=== PATIENT | female | born 1975 | race Caucasian/White ===

== ENCOUNTER → 2016-12-07 | Outpatient (CLI) | payer BC ==
[~2016-12-07] MED LIST: ALBU17IN INH; DULE100A IN; FERR325T3 PO; FIBE1CHW2 PO; GLYB1TAB65 PO; IBUP80TA PO; PRENTAB31 PO; PROT20TA11 PO; SING10TA32 PO; TUMS500C PO; VITA100067 PO
--- NOTE | 2016-12-07 17:26 | REP ---
HISTORY: Pain. COMPARISON: 07/10/2013 FINDINGS: No acute fracture or destructive osseous lesion. No significant change from the prior exam. Signed by Linus Moscoso DO 12/07/2016 05:46 P
== END ==
LOC: M WUC 13:38
PROVIDERS: ATTEND Physician Assistant
DX: M25.532 Pain in left wrist (principal)

== ENCOUNTER → 2017-01-16 | Outpatient (CLI) | payer BC ==
[2017-01-16 13:29] LABS: FREE T4 0.93 NG/DL (0.76-1.46)
== END ==
LOC: M SMT 10:30
PROVIDERS: ATTEND Advanced Practice Midwife
DX: Z13.29 Encounter for screening for other suspected endocrine disorder (principal)

== ENCOUNTER 2017-03-25 10:42 | Emergency (ER) | payer BC ==
[~2017-03-25] VITALS: Ht 172.7 cm; Wt 100.0 kg
[~2017-03-25 10:42] MED LIST changes: +[UNRECOGNIZED DRUG - CODE] PO
[2017-03-25 11:36] LABS: BASO # 0.1 10^3/uL (0.0-0.2); BASO % 0.7 % (0.0-1.0); EOS # 0.2 10^3/uL (0.0-0.50); EOS % 2.6 % (0.0-3.0); IMMATURE GRANULOCYTE % 0.4 % (0-0); LYMPH % 21.3 % (24.0-44.0); MEAN CORPUSCULAR HEMOGLOBIN 31.2 pg (27.0-33.0); MEAN CORPUSCULAR HGB CONC 34.5 g/dl (32.0-36.5); MEAN CORPUSCULAR VOLUME 90.4 fl (80.0-96.0); MONO # 0.6 10^3/uL (0.0-0.8); MONO % 6.7 % (0.0-5.0); NEUTROPHILS # 6.3 10^3/uL (1.8-7.7); NEUTROPHILS % 68.3 % (36.0-66.0); PLATELET COUNT, AUTOMATED 244 10^3/uL (150-450); RED CELL DISTRIBUTION WIDTH 12.4 % (11.5-14.5); WHITE BLOOD COUNT 9.2 10^3/uL (4.0-10.0)
--- NOTE | 2017-03-25 11:38 | REP ---
Clinical: Chest pain . Comparison: None . Findings: The mediastinum and cardiac silhouette are stable and within normal limits for portable technique. The lung samson are clear without acute consolidation, effusion, or pneumothorax. Skeletal structures are intact. Impression: No acute cardiopulmonary process appreciated. Signed by Boy Avalos MD 03/25/2017 11:28 A
[2017-03-25] MEDS ORDERED: GI COCKTAIL 50ML BTL(HYOSCYAMINE/MAALOX/LIDOCAINE VISCOUS)(1:3:1) PO ONE (12:00)
[2017-03-25 12:11] LABS: ALBUMIN 3.8 GM/DL (3.2-5.2); ALBUMIN/GLOBULIN RATIO 1.06 (1.00-1.93); ALKALINE PHOSPHATASE 54 U/L (45-117); ALT/SGPT 32 U/L (12-78); ANION GAP 7 MEQ/L (8-16); AST/SGOT 21 U/L (7-37); BILIRUBIN,DIRECT < 0.1 MG/DL (0.0-0.2); BILIRUBIN,TOTAL 0.5 MG/DL (0.2-1.0); BLOOD UREA NITROGEN 7 MG/DL (7-18); CALCIUM LEVEL 9.3 MG/DL (8.5-10.1); CARBON DIOXIDE LEVEL 27 MEQ/L (21-32); CHLORIDE LEVEL 104 MEQ/L (98-107); GLOMERULAR FILTRATION RATE > 60.0 (>58); GLUCOSE, FASTING 96 MG/DL (70-105); SODIUM LEVEL 138 MEQ/L (136-145); TOTAL PROTEIN 7.4 GM/DL (6.4-8.2)
[2017-03-25] MEDS ORDERED: SUCRALFATE SUSP 1GM/10ML UD PO ONE (12:30)
[2017-03-25] MEDS ORDERED: KETOROLAC 30 MG/ML VIAL (J1885) IV ONE (13:15)
[2017-03-25] MEDS ORDERED: ISOVUE-370 76% 100ML VIAL (Q9967) As Ordered ONE (13:23)
--- NOTE | 2017-03-25 14:28 | REP ---
Clinical: Chest pain and shortness of breath. Technique: Axial contrast enhanced images from the thoracic inlet to the upper abdomen using 100 ml Isovue 370 intravenous contrast material with coronal and sagittal MIP re-formations. Findings: Satisfactory enhancement of the pulmonary vasculature is achieved and no filling defects are identified to suggest pulmonary embolus. Thoracic aorta is normal caliber without aneurysm or dissection. Heart and pericardium are normal. Bilateral lung samson are well aerated and clear without acute pulmonary parenchymal consolidation or atelectasis. No nodule or mass lesion. No pleural effusion/reaction. No pneumothorax. No adenopathy. Impression: No evidence for pulmonary embolus. No acute pleuroparenchymal or mediastinal process. Signed by Boy Avalos MD 03/25/2017 02:20 P
[2017-03-25] MEDS ORDERED: SUCR1SS PO (14:35)
[2017-03-25 14:49] VITALS: BP 115/79
--- NOTE | 2017-03-27 08:27 | ECGEPIP ---
Stationary ECG Study [facility] - ED Test Date: 2017-03-25 Pat Name: JESSICA GOINS Department: Room: - Gender: F Cooperative Education Coordinator: luis enrique : 1975 Requested By: Magnolia Bingham Order Number: [id number] Reading MD: Oli Bustamante Measurements Intervals [place] Rate: 69 P: 46 MS: 141 QRS: -5 QRSD: 90 T: 15 QT: 389 QTc: 419 Interpretive Statements SINUS RHYTHM INCOMPLETE RIGHT BUNDLE BRANCH BLOCK NSTTW ABNORMALITIES NO PRIORS FOR COMPARISON Electronically Signed On 03-27-2017 8:27:40 EST by Oli Bustamante
== END 2017-03-25 14:58 | disposition home or self-care (01) ==
LOC: M ED 10:42
DX: R07.89 Other chest pain (principal); I45.2 Bifascicular block; R94.31 Abnormal electrocardiogram [ECG] [EKG]; J45.909 Unspecified asthma, uncomplicated; R00.2 Palpitations; Z79.899 Other long term (current) drug therapy; Z88.1 Allergy status to other antibiotic agents; Z91.89 Other specified personal risk factors, not elsewhere classified; Z91.02 Food additives allergy status; Z88.8 Allergy status to other drugs, medicaments and biological substances
CPT/HCPCS: 71010; 71275; 80048; 80076; 82550; 82553; 83690; 84443; 85025; 85379; 93005; 93041; 94760; 96374; 99285; J1885; Q9967

== ENCOUNTER 2017-05-05 05:52 | Day surgery (SDC) | payer BC ==
[2017-05-05 06:42] LABS: CONTROL LINE UCG INT CTR LINE PRESENT; URINE PREG TEST NEGATIVE (NEGATIVE)
[2017-05-05] MEDS: LR 1,000 ML IV (06:45)
[2017-05-05] MEDS ORDERED: MIDAZOLAM INJ 2 MG/2 ML VIAL (J2250) As Ordered ×2 (07:20→07:44)
[2017-05-05] MEDS ORDERED: PROPOFOL 200 MG/20 ML VIAL As Ordered (07:21)
[2017-05-05] MEDS ORDERED: LIDOCAINE 2% INJ 100 MG/5 ML SDV (FOR ANES.) As Ordered (07:21)
[2017-05-05] MEDS ORDERED: fentaNYL 100 MCG/2 ML INJECTION (J3010) As Ordered (07:21)
[2017-05-05] MEDS ORDERED: dexameTHASONE 4 MG/ML 1ML VIAL (J1100) As Ordered (08:15)
[2017-05-05] MEDS ORDERED: ONDANSETRON 4MG/2ML VIAL (J2405) As Ordered (08:15)
[2017-05-05] MEDS ORDERED: METOCLOPRAMIDE INJ 10MG/2ML VIAL (J2765) As Ordered (08:15)
[2017-05-05] MEDS: LIDOCAINE W/EPINEPHRINE 1% 20ML VIAL As Ordered (08:17)
[2017-05-05] MEDS: BUPIVACAINE HCL 0.25% 30 ML VIAL As Ordered (08:17)
[2017-05-05] MEDS: ROPIvacaine 0.5% 30 ML INJECTION (J2795 PER 1MG) As Ordered (08:55)
[2017-05-05] MEDS ORDERED: PANTOPRAZOLE 40MG TAB (PROTONIX) PO (09:00)
[2017-05-05] MEDS ORDERED: MONTELUKAST 10 MG TAB PO (09:00)
[2017-05-05] MEDS ORDERED: D5W/LR 1,000 ML IV (10:00)
[2017-05-05] MEDS ORDERED: PERCOCET 5MG/325MG TAB PO ×3 (10:00)
[2017-05-05] MEDS ORDERED: ONDANSETRON 4MG/2ML VIAL (J2405) IV (10:00)
[2017-05-05] MEDS ORDERED: ALBUTEROL 90 MCG/ACT 8GM HFA INHALER INH (10:00)
[2017-05-05] MEDS ORDERED: fentaNYL 100 MCG/2 ML INJECTION (J3010) IV (10:00)
[2017-05-05] MEDS ORDERED: DULERA INH (21:00)
== END 2017-05-05 14:30 | disposition home or self-care (01) ==
LOC: M SDC 05:52
DX: M23.203 Derangement of unspecified medial meniscus due to old tear or injury, right knee (principal); L50.2 Urticaria due to cold and heat; J45.909 Unspecified asthma, uncomplicated; R00.2 Palpitations; K21.9 Gastro-esophageal reflux disease without esophagitis; Z79.899 Other long term (current) drug therapy; Z79.51 Long term (current) use of inhaled steroids; Z88.1 Allergy status to other antibiotic agents; Z88.8 Allergy status to other drugs, medicaments and biological substances; Z91.02 Food additives allergy status
CPT/HCPCS: 29881

== ENCOUNTER → 2017-06-27 | Outpatient (CLI) | payer BC ==
[2017-06-27 20:21] LABS: IMMUNOGLOBULIN E 77.3 IU/ML (<100)
== END ==
LOC: M SMT 10:29
DX: T78.3XXD Angioneurotic edema, subsequent encounter (principal)

== ENCOUNTER → 2017-08-18 | Outpatient (REF) | payer BC | LOC: M LAB REF 13:15 | DX: R30.0 Dysuria (principal) | CPT/HCPCS: 87086 ==

== ENCOUNTER → 2017-08-23 | Outpatient (REF) | payer BC | LOC: M SFHCWAGY 11:13 | DX: B00.9 Herpesviral infection, unspecified (principal) | CPT/HCPCS: 87255 ==

== ENCOUNTER 2017-10-05 09:53 | Day surgery (SDC) | payer BC ==
[~2017-10-05 09:53] MED LIST changes: -ALBU17IN INH; -DULE100A IN; -FERR325T3 PO; -FIBE1CHW2 PO; -GLYB1TAB65 PO; -IBUP80TA PO; +LIDOCAINE 2% INJ 100 MG/5 ML SDV (FOR ANES.) As Ordered; +MIDAZOLAM INJ 2 MG/2 ML VIAL (J2250) As Ordered; -PRENTAB31 PO; +PROPOFOL 200 MG/20 ML VIAL As Ordered; -PROT20TA11 PO; +ROCURONIUM BROMIDE 50 MG/5 ML VIAL As Ordered; -SING10TA32 PO; -TUMS500C PO; -VITA100067 PO; -[UNRECOGNIZED DRUG - CODE] PO; +fentaNYL 250 MCG/5 ML INJECTION (J3010) As Ordered
[2017-10-05] MEDS ORDERED: EPINEPHrine INJ 1 MG/ML 1ML AMP (09:54)
[2017-10-05] MEDS ORDERED: ROPIvacaine 0.5% 30 ML INJECTION (J2795 PER 1MG) (09:54)
[2017-10-05] MEDS ORDERED: dexameTHASONE 10 MG/1 ML VIAL PRES.FREE (J1100) (09:54)
[2017-10-05 10:27] LABS: CONTROL LINE UCG INT CTR LINE PRESENT; URINE PREG TEST NEGATIVE (NEGATIVE)
[2017-10-05] MEDS: LR 1,000 ML IV (10:27)
[2017-10-05] MEDS ORDERED: fentaNYL 100 MCG/2 ML INJECTION (J3010) As Ordered (10:51)
[2017-10-05] MEDS ORDERED: MIDAZOLAM INJ 2 MG/2 ML VIAL (J2250) As Ordered (10:53)
[2017-10-05] MEDS: MIDAZOLAM INJ 2 MG/2 ML VIAL (J2250) IV (11:22)
[2017-10-05] MEDS: fentaNYL 100 MCG/2 ML INJECTION (J3010) IV (11:22)
[2017-10-05] MEDS ORDERED: EPINEPHrine INJ 1 MG/ML 1ML AMP As Ordered (12:06)
[2017-10-05] MEDS: LIDOCAINE 1% MDV 20ML VIAL As Ordered (12:47)
[2017-10-05] MEDS ORDERED: GLYCOPYRROLATE INJ 0.2 MG/ML 2 ML VIAL As Ordered ×2 (12:54)
[2017-10-05] MEDS ORDERED: NEOSTIGMINE 10 MG/10 ML VIAL (J2710) As Ordered (12:54)
[2017-10-05] MEDS ORDERED: dexameTHASONE 4 MG/ML 1ML VIAL (J1100) As Ordered ×2 (12:59)
[2017-10-05] MEDS ORDERED: ONDANSETRON 4MG/2ML VIAL (J2405) As Ordered (12:59)
[2017-10-05] MEDS ORDERED: fentaNYL 100 MCG/2 ML INJECTION (J3010) IV (13:45)
[2017-10-05] MEDS ORDERED: LR 1,000 ML IV (13:45)
[2017-10-05] MEDS: KETOROLAC 30 MG/ML VIAL (J1885) IV (13:45)
[2017-10-05] MEDS ORDERED: METOCLOPRAMIDE INJ 10MG/2ML VIAL (J2765) As Ordered (14:13)
[2017-10-05] MEDS: ONDANSETRON 4MG/2ML VIAL (J2405) IV (14:15)
[2017-10-05] MEDS: METOCLOPRAMIDE INJ 10MG/2ML VIAL (J2765) IV (14:19)
[2017-10-05] MEDS ORDERED: KETOROLAC 30 MG/ML VIAL (J1885) IV (14:30)
== END 2017-10-05 16:45 | disposition home or self-care (01) ==
LOC: M SDC 09:53
DX: S43.491A Other sprain of right shoulder joint, initial encounter (principal); M19.011 Primary osteoarthritis, right shoulder; M75.41 Impingement syndrome of right shoulder; J45.909 Unspecified asthma, uncomplicated; R00.2 Palpitations; K21.9 Gastro-esophageal reflux disease without esophagitis; M17.0 Bilateral primary osteoarthritis of knee; L50.2 Urticaria due to cold and heat; Z88.1 Allergy status to other antibiotic agents; Z88.8 Allergy status to other drugs, medicaments and biological substances; Z91.09 Other allergy status, other than to drugs and biological substances; Z79.899 Other long term (current) drug therapy; Z79.51 Long term (current) use of inhaled steroids; X58.XXXA Exposure to other specified factors, initial encounter; Y93.89 Activity, other specified; Y92.89 Other specified places as the place of occurrence of the external cause; Y99.8 Other external cause status
CPT/HCPCS: 29806

== ENCOUNTER → 2017-12-19 | Outpatient (CLI) | payer BC | LOC: M WUC 17:16 | DX: S90.32XA Contusion of left foot, initial encounter (principal); Y93.89 Activity, other specified; Y92.89 Other specified places as the place of occurrence of the external cause; X58.XXXA Exposure to other specified factors, initial encounter; Y99.8 Other external cause status | CPT/HCPCS: 73630 ==

== ENCOUNTER 2018-03-04 06:06 | Emergency (ER) | payer BC ==
[2018-03-04] MEDS: ONDANSETRON 4MG/2ML VIAL (J2405) IV (06:30)
[2018-03-04] MEDS ORDERED: MORPHINE 2 MG/ML 1ML SYRINGE (J2270) IV (06:30)
[2018-03-04] MEDS: KETOROLAC 30 MG/ML VIAL (J1885) IV (06:45)
[2018-03-04 06:59] LABS: BASO # 0.1 10^3/uL (0.0-0.2); BASO % 0.5 % (0.0-1.0); EOS # 0.3 10^3/uL (0.0-0.50); HEMATOCRIT 41.3 % (36.0-47.0); HEMOGLOBIN 13.8 g/dl (12.0-15.5); IMMATURE GRANULOCYTE % 0.4 % (0-3.0); LYMPH # 1.9 10^3/uL (1.5-4.5); LYMPH % 13.9 % (24.0-44.0); MEAN CORPUSCULAR HEMOGLOBIN 30.9 pg (27.0-33.0); MEAN CORPUSCULAR HGB CONC 33.4 g/dl (32.0-36.5); MEAN CORPUSCULAR VOLUME 92.6 fl (80.0-96.0); MONO # 0.9 10^3/uL (0.0-0.8); MONO % 6.9 % (0.0-5.0); NEUTROPHILS # 10.2 10^3/uL (1.8-7.7); NEUTROPHILS % 76.3 % (36.0-66.0); PLATELET COUNT, AUTOMATED 241 10^3/uL (150-450); RED BLOOD COUNT 4.46 10^6/uL (4.00-5.40); RED CELL DISTRIBUTION WIDTH 12.3 % (11.5-14.5); WHITE BLOOD COUNT 13.3 10^3/uL (4.0-10.0)
[2018-03-04 07:27] LABS: ALBUMIN 3.8 GM/DL (3.2-5.2); ALKALINE PHOSPHATASE 60 U/L (45-117); ALT/SGPT 27 U/L (12-78); ANION GAP 8 MEQ/L (8-16); AST/SGOT 15 U/L (7-37); BILIRUBIN,DIRECT 0.2 MG/DL (0.0-0.2); BILIRUBIN,TOTAL 0.8 MG/DL (0.2-1.0); BLOOD UREA NITROGEN 13 MG/DL (7-18); CARBON DIOXIDE LEVEL 27 MEQ/L (21-32); CHLORIDE LEVEL 104 MEQ/L (98-107); CREATININE FOR GFR 0.86 MG/DL (0.55-1.30); GLOMERULAR FILTRATION RATE > 60.0 (>58); GLUCOSE, FASTING 122 MG/DL (70-100); LIPASE 99 U/L (73-393); POTASSIUM SERUM 4.2 MEQ/L (3.5-5.1); SODIUM LEVEL 139 MEQ/L (136-145); TOTAL PROTEIN 7.6 GM/DL (6.4-8.2)
[2018-03-04 08:39] LABS: CONTROL LINE HCG INT CTR LINE PRESENT; HCG, SERUM QUALITATIVE NEGATIVE (NEGATIVE)
== END 2018-03-04 09:44 | disposition home or self-care (01) ==
LOC: M ED 06:06
DX: N83.201 Unspecified ovarian cyst, right side (principal); R11.0 Nausea; E66.9 Obesity, unspecified; K21.9 Gastro-esophageal reflux disease without esophagitis; Z79.899 Other long term (current) drug therapy; Z79.51 Long term (current) use of inhaled steroids
CPT/HCPCS: J2405

== ENCOUNTER 2018-03-05 11:51 | Emergency (ER) | payer BC ==
[2018-03-05 12:50] LABS: BASO # 0.1 10^3/uL (0.0-0.2); BASO % 0.4 % (0.0-1.0); EOS # 0.2 10^3/uL (0.0-0.50); EOS % 1.1 % (0.0-3.0); HEMATOCRIT 41.4 % (36.0-47.0); HEMOGLOBIN 13.8 g/dl (12.0-15.5); IMMATURE GRANULOCYTE % 0.3 % (0-3.0); LYMPH # 1.9 10^3/uL (1.5-4.5); LYMPH % 10.7 % (24.0-44.0); MEAN CORPUSCULAR HEMOGLOBIN 30.8 pg (27.0-33.0); MEAN CORPUSCULAR HGB CONC 33.3 g/dl (32.0-36.5); MEAN CORPUSCULAR VOLUME 92.4 fl (80.0-96.0); MONO # 1.5 10^3/uL (0.0-0.8); MONO % 8.5 % (0.0-5.0); NEUTROPHILS # 13.9 10^3/uL (1.8-7.7); PLATELET COUNT, AUTOMATED 274 10^3/uL (150-450); RED BLOOD COUNT 4.48 10^6/uL (4.00-5.40); RED CELL DISTRIBUTION WIDTH 12.4 % (11.5-14.5); WHITE BLOOD COUNT 17.6 10^3/uL (4.0-10.0)
[2018-03-05 12:55] LABS: KETONE, URINE AUTO RFX NEGATIVE (NEGATIVE); MUCUS, URINE RFX SMALL (NEGATIVE); NITRITE, URINE AUTO RFX NEGATIVE (NEGATIVE); RBC, URINE AUTO RFX 2 /HPF (0-3); SPECIFIC GRAVITY UR AUTO RFX 1.014 (1.002-1.035); SQUAM EPITHELIAL CELL UR AURFX 4 /HPF (0-6)
[2018-03-05 13:06] LABS: LEUKOCYTE ESTERASE UR AUTO RFX 1+ (NEGATIVE); WBC, URINE AUTO RFX 20 /HPF (0-3)
[2018-03-05 13:13] LABS: ANION GAP 8 MEQ/L (8-16); BLOOD UREA NITROGEN 15 MG/DL (7-18); CALCIUM LEVEL 9.5 MG/DL (8.5-10.1); CARBON DIOXIDE LEVEL 29 MEQ/L (21-32); CHLORIDE LEVEL 104 MEQ/L (98-107); CREATININE FOR GFR 1.08 MG/DL (0.55-1.30); GLOMERULAR FILTRATION RATE 59.5 (>58); GLUCOSE, FASTING 92 MG/DL (70-100); POTASSIUM SERUM 4.1 MEQ/L (3.5-5.1); SODIUM LEVEL 141 MEQ/L (136-145)
[2018-03-05] MEDS ORDERED: ISOVUE-370 76% 100ML VIAL (Q9967) As Ordered (14:37)
[2018-03-05 14:40] LABS: CONTROL LINE UCG INT CTR LINE PRESENT; URINE PREG TEST NEGATIVE (NEGATIVE)
[2018-03-05] MEDS: KETOROLAC 30 MG/ML VIAL (J1885) IV (14:45)
[2018-03-05 14:54] LABS: ALBUMIN 3.8 GM/DL (3.2-5.2); ALBUMIN/GLOBULIN RATIO 0.97 (1.00-1.93); ALKALINE PHOSPHATASE 66 U/L (45-117); ALT/SGPT 25 U/L (12-78); AST/SGOT 15 U/L (7-37); BILIRUBIN,DIRECT 0.2 MG/DL (0.0-0.2); BILIRUBIN,TOTAL 0.7 MG/DL (0.2-1.0); LIPASE 98 U/L (73-393); TOTAL PROTEIN 7.7 GM/DL (6.4-8.2)
== END 2018-03-05 15:36 | disposition home or self-care (01) ==
LOC: M ED 11:51
DX: K57.92 Diverticulitis of intestine, part unspecified, without perforation or abscess without bleeding (principal); E11.9 Type 2 diabetes mellitus without complications; J45.909 Unspecified asthma, uncomplicated; Z79.899 Other long term (current) drug therapy; Z88.1 Allergy status to other antibiotic agents; Z88.8 Allergy status to other drugs, medicaments and biological substances; Z91.048 Other nonmedicinal substance allergy status
CPT/HCPCS: Q9967

== ENCOUNTER 2018-06-01 11:09 | Emergency (ER) | payer BC ==
[~2018-06-01] VITALS: Ht 172.7 cm; Wt 97.3 kg
[~2018-06-01 11:09] MED LIST changes: +ALBU17IN INH; +CIPR-249 PO; +DIFL150T PO; +DULE100A INH; +FERR325T3 PO; +FIBE1CHW2 PO; +FLAG500T PO; +GLYB1TAB65 PO; +IBUP-1114 PO; +IBUP80TA PO; -LIDOCAINE 2% INJ 100 MG/5 ML SDV (FOR ANES.) As Ordered; -MIDAZOLAM INJ 2 MG/2 ML VIAL (J2250) As Ordered; +NAPR-50 PO; +NORCOTAB PO; +PRENTAB31 PO; -PROPOFOL 200 MG/20 ML VIAL As Ordered; +PROT20TA11 PO; -ROCURONIUM BROMIDE 50 MG/5 ML VIAL As Ordered; +SING10TA32 PO; +SUCR1SS PO; +TUMS500C PO; +VITA100067 PO; +WOMETAB4 PO; +ZOFR4TAB14 PO; +[UNRECOGNIZED DRUG - CODE] PO; -fentaNYL 250 MCG/5 ML INJECTION (J3010) As Ordered
[2018-06-01] MEDS ORDERED: KETOROLAC 30 MG/ML VIAL (J1885) IV ONE (12:00)
[2018-06-01] MEDS ORDERED: ONDANSETRON 4MG/2ML VIAL (J2405) IV ONE (12:00)
[2018-06-01] MEDS ORDERED: NS 1,000 ML IV ONE (12:00)
[2018-06-01 12:26] LABS: BASO # 0.1 10^3/uL (0.0-0.2); BASO % 0.8 % (0.0-1.0); EOS # 0.3 10^3/uL (0.0-0.50); EOS % 3.1 % (0.0-3.0); HEMATOCRIT 43.7 % (36.0-47.0); HEMOGLOBIN 14.5 g/dl (12.0-15.5); LYMPH # 1.6 10^3/uL (1.5-4.5); LYMPH % 18.9 % (24.0-44.0); MEAN CORPUSCULAR HEMOGLOBIN 30.6 pg (27.0-33.0); MEAN CORPUSCULAR HGB CONC 33.2 g/dl (32.0-36.5); MEAN CORPUSCULAR VOLUME 92.2 fl (80.0-96.0); MONO # 0.7 10^3/uL (0.0-0.8); MONO % 8.3 % (0.0-5.0); NEUTROPHILS % 68.4 % (36.0-66.0); PLATELET COUNT, AUTOMATED 242 10^3/uL (150-450); RED BLOOD COUNT 4.74 10^6/uL (4.00-5.40); WHITE BLOOD COUNT 8.7 10^3/uL (4.0-10.0)
[2018-06-01 12:54] LABS: ALBUMIN 4.2 GM/DL (3.2-5.2); ALT/SGPT 32 U/L (12-78); AMYLASE 37 U/L (25-115); BILIRUBIN,DIRECT 0.2 MG/DL (0.0-0.2); BILIRUBIN,TOTAL 0.6 MG/DL (0.2-1.0); BLOOD UREA NITROGEN 15 MG/DL (7-18); CALCIUM LEVEL 8.9 MG/DL (8.5-10.1); CARBON DIOXIDE LEVEL 29 MEQ/L (21-32); CHLORIDE LEVEL 105 MEQ/L (98-107); CREATININE FOR GFR 0.92 MG/DL (0.55-1.30); GLOMERULAR FILTRATION RATE > 60.0 (>58); GLUCOSE, FASTING 114 MG/DL (70-100); LIPASE 120 U/L (73-393); POTASSIUM SERUM 4.1 MEQ/L (3.5-5.1); SODIUM LEVEL 141 MEQ/L (136-145); TOTAL PROTEIN 8.2 GM/DL (6.4-8.2)
[2018-06-01] MEDS ORDERED: GI COCKTAIL 50ML BTL(HYOSCYAMINE/MAALOX/LIDOCAINE VISCOUS)(1:3:1) PO ONE (14:00)
--- NOTE | 2018-06-01 14:36 | REP ---
However quadrant sonography: History: Epigastric pain. Worse after eating. Findings: Scanning through right upper quadrant of the abdomen demonstrates a normal sized nontender thin-walled gallbladder containing multiple shadowing calculi. Common bile duct is normal measuring 0.6 cm in greatest diameter. There is evidence of fatty infiltration of the liver. No focal liver lesion is seen. Limited views of the pancreas show no abnormality. There is no evidence of ascites or right renal abnormality. The right kidney measures 13.3 x 6.6 x 5.0 cm. Impression: Cholelithiasis. Fatty infiltration of the liver. Otherwise negative. Electronically Signed by Abebe Guerrero MD 06/01/2018 01:12 P
[2018-06-01 14:38] VITALS: BP 113/74
[2018-06-01] MEDS ORDERED: PEPC1TAB5 PO (14:42)
--- NOTE | 2018-06-02 08:39 | ECGEPIP ---
Stationary ECG Study [facility] - ED Test Date: 2018-06-01 Pat Name: JESSICA GOINS Department: Room: - Gender: F Associate Professor Of Physics: jcarrie : 1975 Requested By: Magnolia Bingham Order Number: [id number] Reading MD: Magnolia Bingham Measurements Intervals [place] Rate: 71 P: 56 [place]: 165 QRS: -20 QRSD: 87 T: 26 QT: 386 QTc: 420 Interpretive Statements SINUS RHYTHM POSSIBLE RIGHT VENTRICULAR CONDUCTION DELAY NSTTW ABNORMALITY SIMILAR 03/25/17 Electronically Signed On 06-02-2018 8:39:21 EST by Magnolia Bingham
== END 2018-06-01 14:45 | disposition home or self-care (01) ==
LOC: M ED 11:09
DX: K80.20 Calculus of gallbladder without cholecystitis without obstruction (principal); R11.0 Nausea; K21.9 Gastro-esophageal reflux disease without esophagitis; E11.9 Type 2 diabetes mellitus without complications; K57.92 Diverticulitis of intestine, part unspecified, without perforation or abscess without bleeding; J45.909 Unspecified asthma, uncomplicated; Z87.891 Personal history of nicotine dependence; Z88.8 Allergy status to other drugs, medicaments and biological substances; Z88.1 Allergy status to other antibiotic agents; Z91.048 Other nonmedicinal substance allergy status; Z79.899 Other long term (current) drug therapy; Z79.51 Long term (current) use of inhaled steroids
CPT/HCPCS: 76705; 80048; 80076; 81001; 81025; 82150; 83690; 85025; 87086; 93005; 96361; 96374; 96375; 99284; J1885; J2405

== ENCOUNTER 2018-06-09 15:35 | Day surgery (SDC) | payer BC ==
[~2018-06-09] VITALS: Ht 172.7 cm; Wt 97.3 kg
[~2018-06-09 15:35] MED LIST changes: +PEPC1TAB5 PO
[2018-06-09 16:25] LABS: BASO # 0.1 10^3/uL (0.0-0.2); BASO % 0.4 % (0.0-1.0); EOS # 0.2 10^3/uL (0.0-0.50); EOS % 1.3 % (0.0-3.0); HEMATOCRIT 41.6 % (36.0-47.0); HEMOGLOBIN 14.1 g/dl (12.0-15.5); LYMPH # 1.9 10^3/uL (1.5-4.5); LYMPH % 11.4 % (24.0-44.0); MEAN CORPUSCULAR HEMOGLOBIN 30.9 pg (27.0-33.0); MEAN CORPUSCULAR HGB CONC 33.9 g/dl (32.0-36.5); MEAN CORPUSCULAR VOLUME 91.2 fl (80.0-96.0); MONO # 0.8 10^3/uL (0.0-0.8); MONO % 4.9 % (0.0-5.0); NEUTROPHILS # 13.9 10^3/uL (1.8-7.7); NEUTROPHILS % 81.6 % (36.0-66.0); PLATELET COUNT, AUTOMATED 253 10^3/uL (150-450); RED BLOOD COUNT 4.56 10^6/uL (4.00-5.40); WHITE BLOOD COUNT 17.1 10^3/uL (4.0-10.0)
[2018-06-09 17:02] LABS: ALBUMIN 4.1 GM/DL (3.2-5.2); ALT/SGPT 32 U/L (12-78); BILIRUBIN,DIRECT 0.2 MG/DL (0.0-0.2); BILIRUBIN,TOTAL 0.7 MG/DL (0.2-1.0); BLOOD UREA NITROGEN 12 MG/DL (7-18); CARBON DIOXIDE LEVEL 26 MEQ/L (21-32); CHLORIDE LEVEL 106 MEQ/L (98-107); CREATININE FOR GFR 0.78 MG/DL (0.55-1.30); GLOMERULAR FILTRATION RATE > 60.0 (>58); GLUCOSE, FASTING 102 MG/DL (70-100); LIPASE 96 U/L (73-393); POTASSIUM SERUM 4.2 MEQ/L (3.5-5.1); SODIUM LEVEL 139 MEQ/L (136-145); TOTAL PROTEIN 7.5 GM/DL (6.4-8.2)
[2018-06-09] MEDS ORDERED: KETOROLAC 30 MG/ML VIAL (J1885) IV ONE (17:30)
[2018-06-09] MEDS ORDERED: ONDANSETRON 4MG/2ML VIAL (J2405) IV ONE (17:30)
[2018-06-09] MEDS ORDERED: ISOVUE-370 76% 100ML VIAL (Q9967) As Ordered ONE (17:34)
[2018-06-09 18:15] LABS: AMORPHOUS SEDIMENT SMALL (NEGATIVE); APPEARANCE, URINE CLOUDY (CLEAR); BACTERIA, URINE AUTO 1+ (NEGATIVE); BILIRUBIN, URINE AUTO NEGATIVE (NEGATIVE); BLOOD, URINE BLOOD 1+ (NEGATIVE); COLOR, URINE YELLOW (YELLOW); GLUCOSE, URINE (UA) AUTO NEGATIVE (NEGATIVE); KETONE, URINE AUTO TRACE mg/dL (NEGATIVE); LEUKOCYTE ESTERASE, URINE AUTO TRACE (NEGATIVE); MUCUS, URINE LARGE (NEGATIVE); NITRITE, URINE AUTO NEGATIVE (NEGATIVE); PROTEIN, URINE AUTO NEGATIVE (NEGATIVE); RBC, URINE AUTO 4 /HPF (0-3); SPECIFIC GRAVITY URINE AUTO 1.021 (1.002-1.035); SQUAMOUS EPITHELIAL CELL UR AU 8 /HPF (0-6); UROBILINOGEN, URINE AUTO 0.2 mg/dL (0.0-2.0); WBC, URINE AUTO 13 /HPF (0-3)
--- NOTE | 2018-06-09 19:12 | REPVR ---
EXAM: CT Abdomen and Pelvis With Contrast EXAM DATE/TIME: 06/09/2018 6:17 PM CLINICAL HISTORY: 43 years old, female; Pain; Abdominal pain; Additional info: Right lateral abd pain, ? acute verito vs appe TECHNIQUE: Axial computed tomography images of the abdomen and pelvis with intravenous contrast. All CT scans at this facility use at least one of these dose optimization techniques: automated exposure control; mA and/or kV adjustment per patient size (includes targeted exams where dose is matched to clinical indication); or iterative reconstruction. Coronal and sagittal reformatted images were created and reviewed. CONTRAST: 75 ml of ISOVUE 370 administered intravenously. COMPARISON: CT ABD/PEL W/IV CONTRAST ONLY 03/05/2018 2:39 PM FINDINGS: Lower thorax: No acute findings. ABDOMEN: Liver: There is a diffuse decrease in hepatic parenchymal density, consistent with fatty infiltration. Gallbladder and bile ducts: Normal. No calcified stones. No ductal dilation. Pancreas: Normal. No ductal dilation. Spleen: Mild splenomegaly. Adrenals: Normal. No mass. Kidneys and ureters: Normal. No hydronephrosis. Stomach and bowel: Mild diverticulosis is present in the distal colon. No diverticulitis. Appendix: The appendix demonstrates diffuse distention measured 10 mm with periappendiceal inflammation, consistent with acute appendicitis. No evidence of perforation. No drainable abscess. PELVIS: Bladder: Unremarkable as visualized. Reproductive: IUD located centrally within the uterus. ABDOMEN and PELVIS: Intraperitoneal space: Normal. No free air. No significant fluid collection. Bones/joints: No acute fracture. No dislocation. Mild central spinal stenosis at L3-4, moderate to severe central spinal stenosis at L4-5 diffuse bulging annulus L5-S1 with facet joint arthropathy. Soft tissues: Small umbilical hernia. Vasculature: Normal. No abdominal aortic aneurysm. Lymph nodes: Normal. No enlarged lymph nodes. IMPRESSION: 1. There is a diffuse decrease in hepatic parenchymal density, consistent with fatty infiltration. 2. Mild splenomegaly. 3. Acute appendicitis. No evidence of perforation. 4. Mild diverticulosis is present in the distal colon. No diverticulitis. A critical call has been made to speak with the ordering physician/practitioner. This report will be amended once consultation has occurred. Electronically signed by: Simone Fuentes On 06/09/2018 19:12:10 PM
--- NOTE | 2018-06-09 19:25 | REPVR ---
EXAM: US Abdomen Limited, Right Upper Quadrant EXAM DATE/TIME: 06/09/2018 7:18 PM CLINICAL HISTORY: 43 years old, female; Pain; Abdominal pain; Epigastric; Additional info: Ruq pain TECHNIQUE: Real-time ultrasound of the abdomen with image documentation. Examination was focused on the right upper quadrant. COMPARISON: GALLBLADDER US 06/01/2018 12:53 PM FINDINGS: Liver: The liver is diffusely echogenic relative to the right kidney, findings consistent with steatosis. Gallbladder: Cholelithiasis. No pericholecystic fluid or gallbladder wall thickening. Negative sonographic Brock's sign. Common bile duct: Common bile duct measures 4.1 mm. Pancreas: Pancreas largely obscured by overlying bowel gas. Right kidney: Right kidney measures 12.9 x 4.8 x 4.2 cm. IMPRESSION: 1. Hepatic steatosis. 2. Cholelithiasis. No pericholecystic fluid or gallbladder wall thickening. Negative sonographic Brock's sign. Electronically signed by: Simone Fuentes On 06/09/2018 19:25:23 PM
[2018-06-09] MEDS ORDERED: PROT1TAB2 PO (19:35)
[2018-06-09] MEDS ORDERED: VENTAER PO (19:35)
[2018-06-09] MEDS ORDERED: BUPIVACAINE/EPIN 0.25% 30 ML VIAL As Ordered ONE (19:48)
[2018-06-09] MEDS ORDERED: ROCURONIUM BROMIDE 50 MG/5 ML VIAL As Ordered ONE (20:04)
[2018-06-09] MEDS ORDERED: PROPOFOL 200 MG/20 ML VIAL As Ordered ONE (20:04)
[2018-06-09] MEDS ORDERED: fentaNYL 250 MCG/5 ML INJECTION (J3010) As Ordered ONE (20:04)
[2018-06-09] MEDS ORDERED: LIDOCAINE 2% INJ 100 MG/5 ML SDV (FOR ANES.) As Ordered ONE (20:04)
[2018-06-09 20:05] VITALS: BP 135/78
[2018-06-09] MEDS ORDERED: MIDAZOLAM INJ 2 MG/2 ML VIAL (J2250) As Ordered ONE (20:05)
[2018-06-09] MEDS ORDERED: ZOSYN 3.375 GM VIAL (J2543) As Ordered ONE (20:06)
[2018-06-09 20:35] VITALS: BP 122/77
[2018-06-09] MEDS ORDERED: ONDANSETRON 4MG/2ML VIAL (J2405) As Ordered ONE (20:57)
[2018-06-09] MEDS ORDERED: KETOROLAC 60 MG/2 ML VIAL (J1885) As Ordered ONE (20:57)
[2018-06-09] MEDS ORDERED: dexameTHASONE 4 MG/ML 1ML VIAL (J1100) As Ordered ONE (20:57)
[2018-06-09] MEDS ORDERED: SUGAMMADEX SODIUM 500 MG/5 ML VIAL (BRIDION) As Ordered ONE (21:01)
[2018-06-09] MEDS ORDERED: KETOROLAC 30 MG/ML VIAL (J1885) IV PRN (21:15)
[2018-06-09] MEDS ORDERED: METOCLOPRAMIDE INJ 10MG/2ML VIAL (J2765) IV PRN (21:15)
[2018-06-09] MEDS ORDERED: NS 1,000 ML IV SCH (21:15)
[2018-06-09] MEDS ORDERED: ONDANSETRON 4MG/2ML VIAL (J2405) IV PRN ×2 (21:15→21:20)
[2018-06-09] MEDS ORDERED: PROMETHAZINE INJ 25 MG/ML VIAL (J2550) IV PRN (21:15)
[2018-06-09] MEDS ORDERED: MORPHINE 4 MG/ML 1ML VIAL/SYRINGE (J2270) IV PRN (21:15)
[2018-06-09] MEDS ORDERED: LR 1,000 ML IV SCH (21:20)
[2018-06-09] MEDS ORDERED: fentaNYL 100 MCG/2 ML INJECTION (J3010) IV PRN (21:20)
[2018-06-09] MEDS ORDERED: ACETAMINOPHEN TAB 650MG DOSE (2X325MG) PO PRN (21:30)
[2018-06-09] MEDS: NORCO, ANEXSIA 5/325MG TABLET (HYDROcodone/ACETAMINOPHEN) PO PRN ×2 (21:40→22:10)
[2018-06-09 23:35] VITALS: BP 121/73
[2018-06-10 00:35] VITALS: BP 102/56
[2018-06-10 01:35] VITALS: BP 95/52
[2018-06-10] MEDS: PIPERACILLIN/TAZOBACTAM SOD 3.375 GM in D5W MINI-BAG PLUS 50 ML IV SCH ×2 (02:23→09:44)
[2018-06-10 02:35] VITALS: BP 100/50
[2018-06-10 06:00] VITALS: BP 103/58
[2018-06-10] MEDS: NORCO, ANEXSIA 5/325MG TABLET (HYDROcodone/ACETAMINOPHEN) PO PRN ×2 (06:17→13:39)
[2018-06-10 10:00] VITALS: BP 105/57
[2018-06-10] MEDS ORDERED: NORCOTAB PO (11:26)
[2018-06-10] MEDS ORDERED: AMOX500T2 PO (11:26)
--- NOTE | 2018-06-11 06:47 | RO ---
DATE OF PROCEDURE: 06/09/2018 PREOPERATIVE DIAGNOSIS: Acute appendicitis. POSTOPERATIVE DIAGNOSIS: Acute appendicitis. PROCEDURE: Laparoscopic appendectomy. SURGEON: Avtar Gusman Jr., MD ABORIGINAL EDUCATION WORKER COORDINATOR: ANESTHESIA: General endotracheal anesthesia ESTIMATED BLOOD LOSS: Minimal. FLUIDS: Crystalloid. PROCEDURE SUMMARY: The patient was brought to the operating room, was given general anesthesia. After adequate anesthesia and preoperative antibiotics were given, the patient was prepped and draped in the usual sterile fashion. Next, a supraumbilical incision was made with a skin knife. Blunt dissection was carried down to fascia and a Veress needle placed into the abdominal cavity, insufflated to 15 mm of pressure. A dilating 12 mm trocar was placed at the umbilicus and under direct visualization in the suprapubic left lower quadrant, 5 mm trocars were placed. The patient was placed in left side down and the appendix was definitely inflamed, had some fibrinous exudate associated with it, but no evidence of perforation. The mesentery of the appendix was taken down with harmonic scalpel, down to the level of the base of the cecum/base of the appendix. Once this was adequately mobilized, a MICHAEL stapler was placed at the base of the appendix and transected. The appendix was placed in an EndoCatch bag and brought out through the umbilicus. The right lower quadrant was copiously irrigated until clear and all irrigation was removed with suction. The staple line at the cecum as well as the mesentery was clean and dry. No evidence of bleeding. No evidence of abnormality. All trocars were removed under direct visualization. #0 Vicryl was used to close the fascia at the umbilicus and all incisions were closed with #4-0 Vicryl. Steri-Strips and a dry sterile dressing was applied. The patient was awakened, extubated, brought to recovery room awake, alert and hemodynamically stable. Sponge and needle counts were correct times two.
== END 2018-06-10 15:05 | disposition home or self-care (01) ==
LOC: M ED 15:35 → M SDC 19:42 → M MS5PR 22:25 → M SDC 06-10 15:05
PROVIDERS: ATTEND Surgery
DX: K35.80 Unspecified acute appendicitis (principal); K57.32 Diverticulitis of large intestine without perforation or abscess without bleeding; J45.909 Unspecified asthma, uncomplicated; E66.01 Morbid (severe) obesity due to excess calories; Z68.32 Body mass index [BMI] 32.0-32.9, adult; Z88.1 Allergy status to other antibiotic agents
CPT/HCPCS: 36415; 44970; 74177; 76705; 80048; 80076; 81001; 81025; 83690; 85025; 88304; 96374; 96375; 96376; 99284; J1100; J1885; J2250; J2405; J2543; J3010; Q9967

== ENCOUNTER 2018-07-09 00:29 | Emergency (ER) | payer BC, MEDICAID ==
[~2018-07-09] VITALS: Ht 172.7 cm; Wt 109.1 kg
[~2018-07-09 00:29] MED LIST changes: +AMOX500T2 PO; +PROT1TAB2 PO; +VENTAER PO
[2018-07-09] MEDS ORDERED: PROB1CAP (00:39)
[2018-07-09] MEDS ORDERED: MONT10TA2 PO (00:39)
[2018-07-09] MEDS ORDERED: PANT40TA3 PO (00:39)
[2018-07-09] MEDS ORDERED: TYLE500T78 PO (00:39)
[2018-07-09 02:00] LABS: BASO # 0.1 10^3/uL (0.0-0.2); BASO % 0.6 % (0.0-1.0); EOS # 0.1 10^3/uL (0.0-0.50); EOS % 1.1 % (0.0-3.0); HEMATOCRIT 45.3 % (36.0-47.0); HEMOGLOBIN 15.1 g/dl (12.0-15.5); LYMPH # 0.8 10^3/uL (1.5-4.5); LYMPH % 9.1 % (24.0-44.0); MEAN CORPUSCULAR HEMOGLOBIN 30.6 pg (27.0-33.0); MEAN CORPUSCULAR HGB CONC 33.3 g/dl (32.0-36.5); MEAN CORPUSCULAR VOLUME 91.9 fl (80.0-96.0); MONO # 0.5 10^3/uL (0.0-0.8); MONO % 6.4 % (0.0-5.0); NEUTROPHILS # 6.9 10^3/uL (1.8-7.7); NEUTROPHILS % 82.4 % (36.0-66.0); PLATELET COUNT, AUTOMATED 225 10^3/uL (150-450); RED BLOOD COUNT 4.93 10^6/uL (4.00-5.40); WHITE BLOOD COUNT 8.4 10^3/uL (4.0-10.0)
[2018-07-09 02:28] LABS: ALBUMIN 3.8 GM/DL (3.2-5.2); ALT/SGPT 31 U/L (12-78); BILIRUBIN,DIRECT 0.2 MG/DL (0.0-0.2); BILIRUBIN,TOTAL 0.7 MG/DL (0.2-1.0); BLOOD UREA NITROGEN 17 MG/DL (7-18); CALCIUM LEVEL 8.1 MG/DL (8.5-10.1); CARBON DIOXIDE LEVEL 26 MEQ/L (21-32); CHLORIDE LEVEL 105 MEQ/L (98-107); CREATININE FOR GFR 0.99 MG/DL (0.55-1.30); GLOMERULAR FILTRATION RATE > 60.0 (>58); GLUCOSE, FASTING 135 MG/DL (70-100); LIPASE 91 U/L (73-393); POTASSIUM SERUM 3.8 MEQ/L (3.5-5.1); SODIUM LEVEL 138 MEQ/L (136-145)
[2018-07-09] MEDS ORDERED: ACETAMINOPHEN TAB 650MG DOSE (2X325MG) PO ONE (03:30)
[2018-07-09] MEDS ORDERED: METOCLOPRAMIDE 10 MG TAB PO ONE (03:30)
[2018-07-09] MEDS ORDERED: CIPROFLOXACIN 500 MG TAB PO ONE (05:45)
[2018-07-09] MEDS ORDERED: CIPR-249 PO (05:46)
[2018-07-09] MEDS ORDERED: REGL10TA6 PO (05:46)
[2018-07-09 05:59] VITALS: BP 115/79
--- NOTE | 2018-07-09 06:07 | REPVR ---
EXAM: US Abdomen Limited, Right Upper Quadrant EXAM DATE/TIME: 07/09/2018 4:01 AM CLINICAL HISTORY: 43 years old, female; Pain; Abdominal pain; Colic; Additional info: Ruq pain TECHNIQUE: Real-time ultrasound of the abdomen with image documentation. Examination was focused on the right upper quadrant. COMPARISON: GALLBLADDER US 06/09/2018 7:09 PM FINDINGS: Liver: The liver is echogenic with attenuation of the ultrasound beam, consistent with fatty liver. Gallbladder: There are multiple mobile, shadowing stones in the gallbladder. There is no gallbladder wall thickening or pericholecystic fluid. The computer engineering technologist reports a negative Brock's sign. The gallbladder wall measures 2 mm in thickness. Common bile duct: There is no biliary ductal dilation. The common bile duct measures 4 mm in diameter. Pancreas: The pancreas appears normal with no ductal dilation but the visibility of the tail of the pancreas was limited by bowel gas. Right kidney: The right kidney is normal in size and echogenicity with no hydronephrosis or stones identified. The right kidney measures 14.4 cm in length. There is a possibility of duplication of the right kidney. IMPRESSION: 1. Cholelithiasis again seen but no signs of acute cholecystitis. No biliary ductal dilation. 2. Increased echogenicity of the liver, consistent with fatty liver. Electronically signed by: Fatoumata Estrella On 07/09/2018 06:06:54 AM
== END 2018-07-09 06:03 | disposition home or self-care (01) ==
LOC: M ED 00:29
DX: K80.70 Calculus of gallbladder and bile duct without cholecystitis without obstruction (principal); N39.0 Urinary tract infection, site not specified; Z79.899 Other long term (current) drug therapy; Z90.89 Acquired absence of other organs; Z98.890 Other specified postprocedural states; Z88.1 Allergy status to other antibiotic agents; Z91.048 Other nonmedicinal substance allergy status; Z88.8 Allergy status to other drugs, medicaments and biological substances; Z91.02 Food additives allergy status

== ENCOUNTER 2018-09-19 20:17 | Emergency (ER) | payer BC, MEDICAID ==
[~2018-09-19] VITALS: Ht 172.7 cm; Wt 98.2 kg
[~2018-09-19 20:17] MED LIST changes: +HYDR-3715 PO; +MONT10TA2 PO; -NAPR-50 PO; +NAPR-837 PO; -NORCOTAB PO; +PANT40TA3 PO; +PROB1CAP; +REGL10TA6 PO; +TYLE500T78 PO
[2018-09-19] MEDS ORDERED: ONDANSETRON 4MG/2ML VIAL (J2405) IV ONE (21:00)
[2018-09-19] MEDS ORDERED: SUCRALFATE 1 GM TAB PO ONE (21:00)
[2018-09-19 21:07] LABS: BASO # 0.1 10^3/uL (0.0-0.2); BASO % 0.5 % (0.0-1.0); EOS # 0.4 10^3/uL (0.0-0.50); EOS % 3.1 % (0.0-3.0); HEMATOCRIT 40.6 % (36.0-47.0); HEMOGLOBIN 13.7 g/dl (12.0-15.5); LYMPH # 2.8 10^3/uL (1.5-4.5); LYMPH % 21.5 % (24.0-44.0); MEAN CORPUSCULAR HEMOGLOBIN 30.5 pg (27.0-33.0); MEAN CORPUSCULAR HGB CONC 33.7 g/dl (32.0-36.5); MEAN CORPUSCULAR VOLUME 90.4 fl (80.0-96.0); MONO % 7.7 % (0.0-5.0); NEUTROPHILS # 8.7 10^3/uL (1.8-7.7); NEUTROPHILS % 66.7 % (36.0-66.0); PLATELET COUNT, AUTOMATED 251 10^3/uL (150-450); RED BLOOD COUNT 4.49 10^6/uL (4.00-5.40); WHITE BLOOD COUNT 13.1 10^3/uL (4.0-10.0)
[2018-09-19 22:04] LABS: HCG, SERUM QUALITATIVE NEGATIVE (NEGATIVE)
[2018-09-19 22:11] LABS: ALBUMIN 3.5 GM/DL (3.2-5.2); ALT/SGPT 32 U/L (12-78); AMYLASE 39 U/L (25-115); BILIRUBIN,DIRECT < 0.1 MG/DL (0.0-0.2); BILIRUBIN,TOTAL 0.4 MG/DL (0.2-1.0); BLOOD UREA NITROGEN 13 MG/DL (7-18); CALCIUM LEVEL 8.4 MG/DL (8.5-10.1); CARBON DIOXIDE LEVEL 25 MEQ/L (21-32); CHLORIDE LEVEL 106 MEQ/L (98-107); CK-MB VALUE MASS < 1.0 NG/ML (<3.6); CPK CREATINE PHOSPHOKINASE 87 U/L (26-192); CREATININE FOR GFR 0.78 MG/DL (0.55-1.30); GLOMERULAR FILTRATION RATE > 60.0 (>58); GLUCOSE, FASTING 100 MG/DL (70-100); LIPASE 101 U/L (73-393); MB/CK RELATIVE INDEX 1.15 (< OR =4); POTASSIUM SERUM 4.2 MEQ/L (3.5-5.1); SODIUM LEVEL 139 MEQ/L (136-145); TOTAL PROTEIN 7.3 GM/DL (6.4-8.2); TROPONIN I < 0.02 NG/ML (< 0.10)
[2018-09-19] MEDS ORDERED: ISOVUE-370 76% 100ML VIAL (Q9967) As Ordered ONE (22:23)
[2018-09-19] MEDS ORDERED: GI COCKTAIL 50ML BTL(HYOSCYAMINE/MAALOX/LIDOCAINE VISCOUS)(1:3:1) PO ONE (22:45)
--- NOTE | 2018-09-19 23:34 | REPVR ---
EXAM: CT Abdomen and Pelvis With Contrast EXAM DATE/TIME: 09/19/2018 10:35 PM CLINICAL HISTORY: 43 years old, female; Abdominal pain; Generalized; Prior surgery; Additional info: Epigastric pain TECHNIQUE: Imaging protocol: Axial computed tomography images of the abdomen and pelvis with intravenous contrast. Coronal and sagittal reformatted images were created and reviewed. Radiation optimization: All CT scans at this facility use at least one of these dose optimization techniques: automated exposure control; mA and/or kV adjustment per patient size (includes targeted exams where dose is matched to clinical indication); or iterative reconstruction. Contrast material: ISOVUE 370; Contrast volume: 100 ml; Contrast route: IV; COMPARISON: CT ABD/PEL W/IV CONTRAST ONLY 06/09/2018 6:10 PM FINDINGS: ABDOMEN: Liver: There is a diffuse decrease in hepatic parenchymal density, consistent with fatty infiltration. Gallbladder and bile ducts: Normal. No calcified stones. No ductal dilation. Pancreas: Normal. No ductal dilation. Spleen: Normal. No splenomegaly. Adrenals: Normal. No mass. Kidneys and ureters: Findings lucency right kidney likely represents a benign cyst. Kidneys otherwise unremarkable. Stomach and bowel: Diffuse thickening of the gastric wall likely related to incomplete distention. Clinical correlation to exclude infiltrative pathology suggested. Mild diverticulosis is present in the distal colon. No diverticulitis. Appendix: No evidence of appendicitis. PELVIS: Bladder: Unremarkable as visualized. Reproductive: IUD demonstrated within the uterus. ABDOMEN and PELVIS: Intraperitoneal space: Normal. No free air. No significant fluid collection. Bones/joints: Moderate central spinal stenosis at L3-4 and moderate to severe central spinal stenosis at L4-5. Soft tissues: Unremarkable. Vasculature: Normal. No abdominal aortic aneurysm. Lymph nodes: Normal. No enlarged lymph nodes. IMPRESSION: 1. There is a diffuse decrease in hepatic parenchymal density, consistent with fatty infiltration. 2. Diffuse thickening of the gastric wall likely related to incomplete distention. Clinical correlation to exclude infiltrative pathology suggested. 3. Mild diverticulosis is present in the distal colon. No diverticulitis. COMMENT: Consistent with the [employer]'s Incidental Findings Committee Report (J Am Atilio Radiol 2010): Unless the patient's specific circumstances suggest otherwise, any liver lesion 0.5 cm or less, any cystic kidney lesion less than 1.0 cm, and/or any adrenal lesion 1.0 cm or less not otherwise characterized in this report as possessing suspicious or indeterminate imaging features is/are highly likely to be benign and do not require follow-up imaging or biopsy. Electronically signed by: Simone Fuentes On 09/19/2018 23:34:20 PM
[2018-09-20] MEDS ORDERED: KETOROLAC 30 MG/ML VIAL (J1885) IV ONE ×2 (01:15)
[2018-09-20] MEDS ORDERED: SUCR1TA PO (01:26)
[2018-09-20 02:52] LABS: CK-MB VALUE MASS < 1.0 NG/ML (<3.6); CPK CREATINE PHOSPHOKINASE 73 U/L (26-192); MB/CK RELATIVE INDEX 1.37 (< OR =4); TROPONIN I < 0.02 NG/ML (< 0.10)
[2018-09-20 03:45] VITALS: BP 148/97
--- NOTE | 2018-09-20 07:29 | ECGEPIP ---
[facility] - ED Test Date: 2018-09-19 Pat Name: JESSICA GOINS Department: Room: - Gender: Female Jai Alai Player: : 1975 Requested By: EDMUNDO Proctor Order Number: [id number] Reading MD: Oli Bustamante Measurements Intervals [place] Rate: 69 P: 45 [place]: 172 QRS: QRSD: 90 T: 18 QT: 378 QTc: 405 Interpretive Statements SINUS RHYTHM BORDERLINE LEFT AXIS DEVIATION POSSIBLE INCOMPLETE RIGHT BUNDLE BRANCH BLOCK NSTTW ABNORMALITIES SIMILAR TO 06/01/18 Electronically Signed on 09-20-2018 7:29:24 EDT by Oli Bustamante
--- NOTE | 2018-09-20 07:32 | ECGEPIP ---
[facility] - ED Test Date: 2018-09-20 Pat Name: JESSICA GOINS Department: Room: - Gender: Female Policy Manager: : 1975 Requested By: EDMUNDO Proctor Order Number: [id number] Reading MD: Oli Bustamante Measurements Intervals [place] Rate: 58 P: 48 MS: 146 QRS: QRSD: 88 T: 11 QT: 410 QTc: 404 Interpretive Statements SINUS BRADYCARDIA POSSIBLE INCOMPLETE RIGHT BUNDLE BRANCH BLOCK NSTTW ABNORMALITIES SIMILAR TO 09/19/18 Electronically Signed on 09-20-2018 7:32:22 EDT by Oli Bustamante
--- NOTE | 2018-09-20 07:49 | REP ---
Clinical: Acute chest pain . Comparison: 03/25/2017 . Findings: The mediastinum and cardiac silhouette are stable and within normal limits for portable technique. The lung samson are clear without acute consolidation, effusion, or pneumothorax. Skeletal structures are intact. Impression: No acute cardiopulmonary process appreciated. Electronically Signed by Boy Avalos MD 09/20/2018 07:40 A
== END 2018-09-20 03:55 | disposition home or self-care (01) ==
LOC: M ED 20:17
DX: K21.0 Gastro-esophageal reflux disease with esophagitis (principal); Z79.899 Other long term (current) drug therapy; Z88.1 Allergy status to other antibiotic agents; Z88.8 Allergy status to other drugs, medicaments and biological substances; Z91.048 Other nonmedicinal substance allergy status; J30.81 Allergic rhinitis due to animal (cat) (dog) hair and dander
CPT/HCPCS: 71045; 74177; 80048; 80076; 82150; 82550; 82553; 83690; 84484; 84703; 85025; 93005; 93041; 96374; 96375; 96376; 99285; J1885; J2405; Q9967

== ENCOUNTER 2019-02-24 15:02 | Emergency (ER) | payer BC, MEDICAID ==
[~2019-02-24] VITALS: Ht 172.7 cm; Wt 97.0 kg
[~2019-02-24 15:02] MED LIST changes: -GLYB1TAB65 PO; +GLYB2.5T13 PO; +SUCR1TA PO
[2019-02-24] MEDS ORDERED: CHOL100029 PO (15:12)
[2019-02-24] MEDS ORDERED: NS 1,000 ML IV ONE (15:30)
[2019-02-24 16:00] LABS: BASO # 0.1 10^3/uL (0.0-0.2); BASO % 0.6 % (0.0-1.0); EOS # 0.3 10^3/uL (0.0-0.5); HEMATOCRIT 41.4 % (36.0-47.0); HEMOGLOBIN 13.9 g/dl (12.0-15.5); LYMPH # 2.1 10^3/uL (1.5-5.0); LYMPH % 25.2 % (24.0-44.0); MEAN CORPUSCULAR HEMOGLOBIN 30.9 pg (27.0-33.0); MEAN CORPUSCULAR HGB CONC 33.6 g/dl (32.0-36.5); MONO # 0.6 10^3/uL (0.0-0.8); MONO % 7.7 % (0.0-5.0); NEUTROPHILS # 5.2 10^3/uL (1.5-8.5); NEUTROPHILS % 62.3 % (36.0-66.0); PLATELET COUNT, AUTOMATED 210 10^3/uL (150-450); WHITE BLOOD COUNT 8.3 10^3/uL (4.0-10.0)
[2019-02-24] MEDS: GASTROGRAFIN SOLUTION 30ML PO SCH ×2 (16:15→16:41)
[2019-02-24 16:26] LABS: ALT/SGPT 25 U/L (12-78); BLOOD UREA NITROGEN 12 MG/DL (7-18); CALCIUM LEVEL 9.2 MG/DL (8.5-10.1); CARBON DIOXIDE LEVEL 27 MEQ/L (21-32); CHLORIDE LEVEL 105 MEQ/L (98-107); GLOMERULAR FILTRATION RATE > 60.0 (>58); GLUCOSE, FASTING 87 MG/DL (70-100); POTASSIUM SERUM 3.8 MEQ/L (3.5-5.1); SODIUM LEVEL 139 MEQ/L (136-145)
[2019-02-24 16:27] LABS: ALBUMIN 3.9 GM/DL (3.2-5.2); BILIRUBIN,DIRECT 0.1 MG/DL (0.0-0.2); BILIRUBIN,TOTAL 0.7 MG/DL (0.2-1.0); LIPASE 107 U/L (73-393); TOTAL PROTEIN 7.4 GM/DL (6.4-8.2)
[2019-02-24] MEDS ORDERED: ISOVUE-370 76% 100ML VIAL (Q9967) As Ordered ONE (17:25)
--- NOTE | 2019-02-24 18:24 | REPVR ---
PROCEDURE INFORMATION: Exam: CT Abdomen And Pelvis With Contrast Exam date and time: 02/24/2019 5:32 PM Clinical history: 43 years old, female; Abdominal pain; Generalized; Additional info: Abd pain w/ diarrhea, ? fam HX of crohn's TECHNIQUE: Imaging protocol: Computed tomography of the abdomen and pelvis with intravenous contrast. Radiation optimization: All CT scans at this facility use at least one of these dose optimization techniques: automated exposure control; mA and/or kV adjustment per patient size (includes targeted exams where dose is matched to clinical indication); or iterative reconstruction. Contrast material: ISOVUE 370; Contrast volume: 100 ml; Contrast route: IV; COMPARISON: CT ABD/PEL W/IV CONTRAST ONLY 09/19/2018 10:27 PM FINDINGS: Liver: Normal. No mass. Gallbladder and bile ducts: Normal. No calcified stones. No ductal dilation. Pancreas: Normal. No ductal dilation. Spleen: Normal. No splenomegaly. Adrenals: Normal. No mass. Kidneys and ureters: Normal. No hydronephrosis. Stomach and bowel: Unremarkable. No obstruction. No mucosal thickening. Appendix: No evidence of appendicitis. Intraperitoneal space: Unremarkable. No free air. No significant fluid collection. Vasculature: Unremarkable. No abdominal aortic aneurysm. Lymph nodes: Unremarkable. No enlarged lymph nodes. Bladder: Unremarkable as visualized. Reproductive: Intrauterine contraceptive device. Bones/joints: Unremarkable. No acute fracture. Soft tissues: Unremarkable. IMPRESSION: No acute abdominal or pelvic abnormality. Electronically signed by: Abhishek Allen On 02/24/2019 18:23:39 PM
--- NOTE | 2019-02-24 20:43 | REPVR ---
PROCEDURE INFORMATION: Exam: US Pelvis, Transvaginal Exam date and time: 02/24/2019 8:16 PM Clinical history: 43 years old, female; Pelvic pain; Additional info: Rlq pain, eval for ovarian torsion TECHNIQUE: Imaging protocol: Real-time transvaginal pelvic ultrasound with image documentation. Transvaginal imaging was used for better evaluation of the endometrium and adnexa. COMPARISON: US PELVIC NON-OB COMPLETE 03/04/2018 7:25 AM FINDINGS: Uterus/cervix: Uterus measures 9 x 5 x 7 cm. Posterior lower uterine segment has 2 hypoechoic areas. One measures 1.5 x 1.2 x 1.4 cm and the second measures 1.4 x 1.1 x 1.6 cm. Intrauterine contraceptive device in place. Right adnexa: Right ovary measures 3 x 3 x 2.3 cm. Left adnexa: Left ovary measures 5 x 3 x 2.6 cm. Cystic area in left ovary measures are 1.7 x 1.8 x 2.7 cm. Free fluid: None. Other findings: In the middle thickness measures 7 mm. IMPRESSION: Uterine fibroids. One of the uterine fibroids has increased blood flow. Followup suggested. Electronically signed by: Abhishek Allen On 02/24/2019 20:43:37 PM
[2019-02-24 21:25] VITALS: BP 117/73
--- NOTE | 2019-02-25 06:47 | ED PDOC ---
Post-Departure Follow-Up dr davis and glen haider faxed formal report of pelvic us for fu Capo Gunter MD Feb 25, 2019 06:47
== END 2019-02-24 21:33 | disposition home or self-care (01) ==
LOC: M ED 15:02
DX: D25.9 Leiomyoma of uterus, unspecified (principal); Z87.19 Personal history of other diseases of the digestive system; Z90.89 Acquired absence of other organs; Z98.890 Other specified postprocedural states; Z91.048 Other nonmedicinal substance allergy status; Z91.02 Food additives allergy status; Z88.1 Allergy status to other antibiotic agents; Z88.8 Allergy status to other drugs, medicaments and biological substances; Z88.5 Allergy status to narcotic agent; Z79.899 Other long term (current) drug therapy
CPT/HCPCS: 74177; 76830; 80048; 80076; 81001; 83605; 83690; 84702; 85025; 87086; 93976; 96360; 96361; 99284; Q9963; Q9967

== ENCOUNTER → 2019-03-05 | Outpatient (CLI) | payer BC ==
[~2019-03-05] MED LIST changes: +CHOL100029 PO
[2019-03-05 17:55] LABS: HEMATOCRIT 44.2 % (36.0-47.0); HEMOGLOBIN 14.1 g/dl (12.0-15.5); MEAN CORPUSCULAR HEMOGLOBIN 30.7 pg (27.0-33.0); MEAN CORPUSCULAR HGB CONC 31.9 g/dl (32.0-36.5); MEAN CORPUSCULAR VOLUME 96.3 fl (80.0-96.0); PLATELET COUNT, AUTOMATED 229 10^3/uL (150-450); RED BLOOD COUNT 4.59 10^6/uL (4.00-5.40); WHITE BLOOD COUNT 8.9 10^3/uL (4.0-10.0)
[2019-03-05 18:32] LABS: FREE T4 0.99 NG/DL (0.76-1.46); PROLACTIN 10.5 NG/ML; THYROID STIMULATING HORMONE 3.37 uIU/ML (0.358-3.740)
== END ==
LOC: M SMT 11:36
PROVIDERS: ATTEND Obstetrics & Gynecology
DX: N92.0 Excessive and frequent menstruation with regular cycle (principal)

== ENCOUNTER → 2019-05-06 | Outpatient (REF) | payer BC ==
[~2019-05-06] MED LIST changes: +MULTCAP PO; -PROB1CAP; +PROB1CAP PO; +VITA100066 PO
== END ==
LOC: M SFHCWAGY 09:44
PROVIDERS: ATTEND Obstetrics & Gynecology
DX: Z01.419 Encounter for gynecological examination (general) (routine) without abnormal findings (principal)

== ENCOUNTER 2019-05-14 10:22 | Day surgery (SDC) | payer BC ==
[~2019-05-14] VITALS: Ht 175.3 cm; Wt 96.2 kg
[~2019-05-14 10:22] MED LIST changes: +NS 1,000 ML IV ONE
[2019-05-14] MEDS ORDERED: fentaNYL 100 MCG/2 ML INJECTION (J3010) As Ordered ONE (12:16)
[2019-05-14] MEDS ORDERED: LIDOCAINE 2% INJ 100 MG/5 ML SDV (FOR ANES.) As Ordered ONE (12:29)
[2019-05-14] MEDS ORDERED: propofoL 200 MG/20 ML VIAL As Ordered ONE ×2 (12:29→12:49)
--- NOTE | 2019-05-14 13:21 | ROOR ---
Patient Name: Talia Moscoso Procedure Date: 05/14/2019 12:20 PM Date of : 1975 Age: 44 Room: [facility] Gender: Female Note Status: Finalized Procedure: Upper GI endoscopy Indications: Heartburn, Suspected gastro-esophageal reflux disease Providers: Lester Serrato MD Referring MD: TRENT JEFF Requesting Provider: Medicines: Monitored Anesthesia Care Complications: No immediate complications. Procedure: Pre-Anesthesia Assessment: - Prior to the procedure, a History and Physical was performed, and patient medications and allergies were reviewed. The patient is competent. The risks and benefits of the procedure and the sedation options and risks were discussed with the patient. All questions were answered and informed consent was obtained. Patient identification and proposed procedure were verified by the physician, the nurse and the anesthesiologist in the procedure room. Mental Status Examination: alert and oriented. Airway Examination: normal oropharyngeal airway and neck mobility. Respiratory Examination: clear to auscultation. CV Examination: normal. Prophylactic Antibiotics: The patient does not require prophylactic antibiotics. Prior Anticoagulants: The patient has taken no previous anticoagulant or antiplatelet agents. ASA Grade Assessment: III - A patient with severe systemic disease. After reviewing the risks and benefits, the patient was deemed in satisfactory condition to undergo the procedure. The anesthesia plan was to use monitored anesthesia care (MAC). Immediately prior to administration of medications, the patient was re-assessed for adequacy to receive sedatives. The heart rate, respiratory rate, oxygen saturations, blood pressure, adequacy of pulmonary ventilation, and response to care were monitored throughout the procedure. The physical status of the patient was re-assessed after the procedure. The Endoscope was introduced through the mouth, and advanced to the second part of duodenum. The upper GI endoscopy was accomplished without difficulty. The patient tolerated the procedure well. Findings: The Z-line was regular and was found 42 cm from the incisors. The examined esophagus was normal. Multiple 8 to 20 mm semi-sessile polyps with no bleeding and no stigmata of recent bleeding were found in the gastric fundus and in the gastric body. The polyp was removed with a cold snare. Resection and retrieval were complete using a Jeffries net. Two hemostatic clips were successfully placed. Verification of patient identification for the specimen was done by the physician and nurse using the patient's name, date and medical record number. Estimated blood loss was minimal. Patchy mild inflammation characterized by erythema and granularity was found in the gastric antrum. Biopsies were taken with a cold forceps for Helicobacter pylori testing. The duodenal bulb and second portion of the duodenum were normal. Biopsies for histology were taken with a cold forceps for evaluation of celiac disease. Impression: - Z-line regular, 42 cm from the incisors. - Normal esophagus. - Multiple gastric polyps. Resected and retrieved. Clips were placed. - Gastritis. Biopsied. - Normal duodenal bulb and second portion of the duodenum. Biopsied. Recommendation: - Patient has a contact number available for emergencies. The signs and symptoms of potential delayed complications were discussed with the patient. Return to normal activities tomorrow. Written discharge instructions were provided to the patient. - High fiber diet. - Continue present medications. - Taper off protonix and if having persistent acid reflux symptoms, consider famotidine 20 mg twice daily. - Follow an antireflux regimen. - Telephone GI clinic for pathology results in 2 weeks. - Return to primary care physician. Lester Serrato MD Lester Serrato MD 05/14/2019 1:20:42 PM Electronically signed by Lester Serrato MD Number of Addenda: 0 Note Initiated On: 05/14/2019 12:20 PM Estimated Blood Loss: Estimated blood loss was minimal.
--- NOTE | 2019-05-14 13:31 | ROOR ---
Patient Name: Talia Moscoso Procedure Date: 05/14/2019 12:22 PM Date of : 1975 Age: 44 Room: [facility] Gender: Female Note Status: Finalized Procedure: Colonoscopy Indications: Follow-up of diverticulitis Providers: Lester Serrato MD Referring MD: TRENT JEFF Requesting Provider: Medicines: Monitored Anesthesia Care Complications: No immediate complications. Procedure: Pre-Anesthesia Assessment: - Prior to the procedure, a History and Physical was performed, and patient medications and allergies were reviewed. The patient is competent. The risks and benefits of the procedure and the sedation options and risks were discussed with the patient. All questions were answered and informed consent was obtained. Patient identification and proposed procedure were verified by the physician, the nurse and the anesthesiologist in the procedure room. Mental Status Examination: alert and oriented. Airway Examination: normal oropharyngeal airway and neck mobility. Respiratory Examination: clear to auscultation. CV Examination: normal. Prophylactic Antibiotics: The patient does not require prophylactic antibiotics. Prior Anticoagulants: The patient has taken no previous anticoagulant or antiplatelet agents. ASA Grade Assessment: III - A patient with severe systemic disease. After reviewing the risks and benefits, the patient was deemed in satisfactory condition to undergo the procedure. The anesthesia plan was to use monitored anesthesia care (MAC). Immediately prior to administration of medications, the patient was re-assessed for adequacy to receive sedatives. The heart rate, respiratory rate, oxygen saturations, blood pressure, adequacy of pulmonary ventilation, and response to care were monitored throughout the procedure. The physical status of the patient was re-assessed after the procedure. The Colonoscope was introduced through the anus and advanced to the terminal ileum, with identification of the appendiceal orifice and IC valve. The colonoscopy was performed without difficulty. The patient tolerated the procedure well. The quality of the bowel preparation was fair. The terminal ileum, ileocecal valve, appendiceal orifice, and rectum were photographed. Scope insertion time was 3 minutes. Scope withdrawal time was 9 minutes. The total duration of the procedure was 12 minutes. Findings: The perianal and digital rectal examinations were normal. The terminal ileum appeared normal. Three sessile polyps were found in the transverse colon. The polyps were 5 to 8 mm in size. These polyps were removed with a cold snare. Resection and retrieval were complete. Verification of patient identification for the specimen was done by the physician and nurse using the patient's name, date and medical record number. Estimated blood loss was minimal. A 4 mm polyp was found in the rectum. The polyp was sessile. The polyp was removed with a cold biopsy forceps. Resection and retrieval were complete. A few small-mouthed diverticula were found in the sigmoid colon and descending colon. There was no evidence of diverticular bleeding. Non-bleeding external and internal hemorrhoids were found during retroflexion. The hemorrhoids were small. Impression: - Preparation of the colon was fair. - The examined portion of the ileum was normal. - Three 5 to 8 mm polyps in the transverse colon, removed with a cold snare. Resected and retrieved. - One 4 mm polyp in the rectum, removed with a cold biopsy forceps. Resected and retrieved. - Mild diverticulosis in the sigmoid colon and in the descending colon. There was no evidence of diverticular bleeding. - Non-bleeding external and internal hemorrhoids. Recommendation: - Patient has a contact number available for emergencies. The signs and symptoms of potential delayed complications were discussed with the patient. Return to normal activities tomorrow. Written discharge instructions were provided to the patient. - High fiber diet. - Continue present medications. - Await pathology results. - Repeat colonoscopy in 3 - 5 years for surveillance based on pathology results. - Telephone GI clinic for pathology results in 2 weeks. - Return to primary care physician. Lester Serrato MD Lester Serrato MD 05/14/2019 1:31:18 PM Electronically signed by Lester Serrato MD Number of Addenda: 0 Note Initiated On: 05/14/2019 12:22 PM Estimated Blood Loss: Estimated blood loss was minimal.
[2019-05-14 13:42] VITALS: BP 127/83
== END 2019-05-14 13:39 | disposition home or self-care (01) ==
LOC: M OPP 10:22
PROVIDERS: ATTEND Internal Medicine Gastroenterology
DX: K64.8 Other hemorrhoids (principal); D12.3 Benign neoplasm of transverse colon; K62.1 Rectal polyp; K57.30 Diverticulosis of large intestine without perforation or abscess without bleeding; K57.32 Diverticulitis of large intestine without perforation or abscess without bleeding; K31.7 Polyp of stomach and duodenum; K29.70 Gastritis, unspecified, without bleeding; K21.9 Gastro-esophageal reflux disease without esophagitis; R12 Heartburn; Z79.899 Other long term (current) drug therapy; Z88.1 Allergy status to other antibiotic agents; Z88.5 Allergy status to narcotic agent; Z88.8 Allergy status to other drugs, medicaments and biological substances; Z91.048 Other nonmedicinal substance allergy status
CPT/HCPCS: 43239; 43251; 45380; 45385; 88305; J3010

== ENCOUNTER → 2019-06-04 | Outpatient (CLI) | payer BC ==
[~2019-06-04] MED LIST changes: -NS 1,000 ML IV ONE
--- NOTE | 2019-06-04 12:34 | REPMRS ---
Patient History The patient states she has not had a clinical breast exam in over a year. Patient had first child at age 39. Family history of colorectal cancer at age 50 or over in maternal grandfather. Taking hormonal contraceptives for 4 years. Digital Woman Screen Mammo: June 04, 2019 - Exam #: [id number] Bilateral CC and MLO view(s) were taken. Technologist: Fatoumata Petersen, Technologist No prior studies available for comparison. FINDINGS: There are scattered fibroglandular densities. There is no evidence of dominant mass, architectural distortion, or grouped microcalcification typical of malignancy. 3-D tomosynthesis shows no additional findings. Assessment: BI-RADS/ACR category 1 mammogram. Negative Mammogram. Recommendation Routine screening mammogram of both breasts in 1 year (for women over age 40). This patient's Lifetime Breast Cancer RIsk is estimated at 15.6 %. This mammogram was interpreted with the aid of an FDA-approved computer-aided dectection system. Electronically Signed By: Hany Guerrero MD 06/04/19 [id number]
== END ==
LOC: M WHC 10:50
PROVIDERS: ATTEND Obstetrics & Gynecology
DX: Z12.31 Encounter for screening mammogram for malignant neoplasm of breast (principal); Z80.0 Family history of malignant neoplasm of digestive organs

== ENCOUNTER → 2019-09-12 | Outpatient (CLI) | payer BC ==
[~2019-09-12] MED LIST changes: -MONT10TA2 PO; +MONT10TA4 PO
[2019-09-12 10:54] LABS: BASO # 0.1 10^3/uL (0.0-0.2); BASO % 0.9 % (0.0-1.0); EOS # 0.4 10^3/uL (0.0-0.5); EOS % 4.1 % (0.0-3.0); HEMATOCRIT 42.5 % (36.0-47.0); HEMOGLOBIN 14.4 g/dl (12.0-15.5); LYMPH # 2.1 10^3/uL (1.5-5.0); LYMPH % 22.3 % (24.0-44.0); MEAN CORPUSCULAR HEMOGLOBIN 31.3 pg (27.0-33.0); MEAN CORPUSCULAR HGB CONC 33.9 g/dl (32.0-36.5); MEAN CORPUSCULAR VOLUME 92.4 fl (80.0-96.0); MONO # 0.7 10^3/uL (0.0-0.8); MONO % 7.4 % (0.0-5.0); NEUTROPHILS % 64.9 % (36.0-66.0); PLATELET COUNT, AUTOMATED 244 10^3/uL (150-450); WHITE BLOOD COUNT 9.3 10^3/uL (4.0-10.0)
[2019-09-12 13:16] LABS: ALBUMIN 4.1 GM/DL (3.2-5.2); BILIRUBIN,DIRECT 0.2 MG/DL (0.0-0.2); BILIRUBIN,TOTAL 0.6 MG/DL (0.2-1.0)
[2019-09-14 08:06] LABS: IGASUB2 467.7 mg/dL (73.2-301.2); IGASUB3 62.9 mg/dL (13.4-97.9); IgA SERUM (part of Subclasses) 597 mg/dL (87-352); TISSUE TRANSGLUTAMINASE IgA <2 U/mL (0-3); UNITSIGA FOR GLIADIN IGA 5 units (0-19); UNITSIGG FOR GLIADIN IGG 9 units (0-19)
== END ==
LOC: M LAB 09:55
PROVIDERS: ATTEND Internal Medicine Gastroenterology
DX: R10.13 Epigastric pain (principal)

== ENCOUNTER → 2019-09-18 | Outpatient (REF) | payer BC, MEDICAID ==
[2019-09-27 15:07] LABS: FATS NEUTRAL Normal (.); FATS TOTAL Normal (.); H PYLORI STOOL ANTIGEN Negative (Negative); PANCREATIC ELASTASE STOOL >500 (>200)
== END ==
LOC: M LAB REF 13:30
PROVIDERS: ATTEND Internal Medicine Gastroenterology
DX: R10.13 Epigastric pain (principal)

== ENCOUNTER 2019-11-09 10:15 | Emergency (ER) | payer BC ==
[~2019-11-09] VITALS: Ht 172.7 cm; Wt 99.1 kg
[2019-11-09] MEDS ORDERED: CVS1CHW13 PO (10:25)
[2019-11-09 11:08] LABS: BASO # 0.1 10^3/uL (0.0-0.2); BASO % 0.7 % (0.0-1.0); EOS # 0.4 10^3/uL (0.0-0.5); EOS % 3.6 % (0.0-3.0); HEMOGLOBIN 14.3 g/dl (12.0-15.5); LYMPH # 2.3 10^3/uL (1.5-5.0); LYMPH % 20.5 % (24.0-44.0); MEAN CORPUSCULAR HEMOGLOBIN 30.6 pg (27.0-33.0); MEAN CORPUSCULAR HGB CONC 33.3 g/dl (32.0-36.5); MEAN CORPUSCULAR VOLUME 92.1 fl (80.0-96.0); MONO # 0.8 10^3/uL (0.0-0.8); MONO % 7.3 % (0.0-5.0); NEUTROPHILS # 7.5 10^3/uL (1.5-8.5); NEUTROPHILS % 67.3 % (36.0-66.0); PLATELET COUNT, AUTOMATED 209 10^3/uL (150-450); RED BLOOD COUNT 4.67 10^6/uL (4.00-5.40); WHITE BLOOD COUNT 11.1 10^3/uL (4.0-10.0)
[2019-11-09] MEDS ORDERED: ONDANSETRON 4MG/2ML VIAL IV ONE (11:15)
[2019-11-09] MEDS ORDERED: KETOROLAC 30 MG/ML 1ML VIAL IV ONE (11:15)
[2019-11-09] MEDS ORDERED: NS 1,000 ML IV ONE (11:15)
[2019-11-09 11:26] LABS: ALBUMIN 3.9 GM/DL (3.2-5.2); BILIRUBIN,DIRECT 0.1 MG/DL (0.0-0.2); BILIRUBIN,TOTAL 0.4 MG/DL (0.2-1.0); TOTAL PROTEIN 7.6 GM/DL (6.4-8.2)
[2019-11-09] MEDS ORDERED: ISOVUE-370 76% 100ML VIAL As Ordered ONE (11:30)
[2019-11-09] MEDS ORDERED: ZOFR8TAB24 PO (14:36)
[2019-11-09] MEDS ORDERED: KETO10TAB PO (14:36)
[2019-11-09] MEDS ORDERED: ACETAMINOPHEN 500 MG TAB PO ONE (14:45)
[2019-11-09 15:06] VITALS: BP 127/69
--- NOTE | 2019-11-10 09:30 | REP ---
CT ABDOMEN/PELVIS WITH IV CONTRAST ONLY: 11/09/2019. COMPARISON: 09/19/2018. CLINICAL HISTORY: Right lower quadrant and left lower quadrant pain, history diverticulitis. TECHNIQUE: 100 mL Isovue 370 given with scanning through abdomen and pelvis with coronal and sagittal reconstructions provided. FINDINGS: CT ABDOMEN: The lung bases are clear. Heart is not enlarged. There is no pericardial thickening or effusion. I see no hiatal hernia. There is some mild hepatomegaly with a vertical diameter of the liver 19 cm in the midclavicular line. Diffuse decrease in their density may reflect fatty infiltration. No splenomegaly or focal splenic lesion. There is no biliary dilatation or upper abdominal ascites. No hepatic mass. Gallbladder shows no calcified stone. Pancreas is unremarkable. Adrenal glands normal. Stomach collapsed. Kidneys show no stone, mass, cyst, hydronephrosis, or hydroureter. No perinephric fluid. Small bowel loops are without dilatation, most are fluid filled without air-fluid levels and of normal caliber. There are some surgical clips at the cecum from prior appendectomy. There is no sign of colitis or diverticulitis in the abdominal portion of colon. The left colon is collapsed. It has a few scattered diverticula without acute finding. There is no ascites in the peroneal gutters. Lung window review of all CT slices shows no perforation or free air in the abdomen or pelvis. There is no ventral hernia. Bone windows show some loss of lordosis but no compression deformities or destructive lesions and only minimal degenerative changes, normal for age. Visualized ribs are intact. CT PELVIS: The bony sacrum, SI joints, pelvis, and hips are without acute finding. The distal left colon, sigmoid, and rectum are without diverticulitis or colitis. Uterus anteverted. There is an IUD in place. It is slightly tilted towards the right. There is a 4.2 cm cyst in the left ovary. I do not see a right adnexal mass. There is no ventral or inguinal hernia nor inguinal adenopathy. IMPRESSION: 1. Some scattered diverticula in the left colon and sigmoid but no signs of colitis or diverticulitis, abdominal or pelvic ascites or free fluid. No mass or sign of obstruction. 2. A 4.2 cm left ovarian cyst identified. 3. Uterus anteverted with an IUD in place. 4. Upper abdominal structures show mild hepatomegaly with fatty infiltration of the liver, unchanged. There is no other significant or acute finding. Electronically Signed by Silverio Washington MD 11/10/2019 09:41 A
--- NOTE | 2019-11-10 10:18 | REP ---
PELVIC ULTRASOUND: 11/09/2019. COMPARISON: CT 11/09/2019, ultrasound 03/04/2018. CLINICAL HISTORY: Left adnexal cyst on CT today. Lower pelvic pain. Evaluate for torsion or other. FINDINGS: Sonographic evaluation shows the uterus anteverted at 10.3 x 4.4 x 6.8 cm. Endometrial stripe has a thickness of 9.9 mm. Echogenic foci within consistent with the IUD seen on CT and previous ultrasound. No uterine contour abnormality or discrete mass. The right ovary 3.2 x 1.6 x 2.2 cm noted without mass or cyst. No adjacent free fluid. Doppler tracing of the ovarian artery shows resistive index 0.59. Left ovary is enlarged 5.7 x 4.6 x 5.1 cm. Within it is a complex mass, predominately hypoechoic. It has some scattered echoes within but good through transmission, irregular, thickened nodular youssef noted. Some of this thickened wall shows color flow within it. No adjacent free fluid. The Doppler tracing of the left ovarian artery shows resistive index 0.62. IMPRESSION: 1. A 4.1 x 4.4 x 3.9 cm complex cystic mass left ovary with internal echoes or debris within as well as thickened wall with lobulated contours and blood flow. Suspect hemorrhagic component and a complex mass or hemorrhagic cyst. A CRIMINAL LEGAL ASSISTANT referral recommended. There is no torsion. Doppler tracing of the ovarian artery and color flow show normal flow. 2. Uterus with IUD in the endometrial stripe but otherwise unremarkable. 3. Right ovary normal. 4. No free fluid in the cul-de-sac or adjacent to either ovary. Electronically Signed by Silverio Washington MD 11/10/2019 06:36 P
== END 2019-11-09 14:55 | disposition home or self-care (01) ==
LOC: M ED 10:15
DX: N83.299 Other ovarian cyst, unspecified side (principal); R11.0 Nausea; K80.20 Calculus of gallbladder without cholecystitis without obstruction; K58.9 Irritable bowel syndrome, unspecified; K21.9 Gastro-esophageal reflux disease without esophagitis; Z97.5 Presence of (intrauterine) contraceptive device; Z79.4 Long term (current) use of insulin; Z79.899 Other long term (current) drug therapy; Z91.89 Other specified personal risk factors, not elsewhere classified; J30.81 Allergic rhinitis due to animal (cat) (dog) hair and dander; Z88.1 Allergy status to other antibiotic agents; Z88.5 Allergy status to narcotic agent; Z88.8 Allergy status to other drugs, medicaments and biological substances
CPT/HCPCS: 74177; 76856; 80047; 80076; 81001; 83690; 84702; 85025; 96361; 96374; 96375; 99284; J1885; J2405; Q9967

== ENCOUNTER 2019-12-31 13:16 | Emergency (ER) | payer BC ==
[~2019-12-31] VITALS: Ht 172.7 cm; Wt 93.9 kg
[~2019-12-31 13:16] MED LIST changes: +BACI1CAP4 PO; +CVS1CHW13 PO; +KETO10TAB PO; +PANT40TA29 PO; -PANT40TA3 PO; -PROB1CAP PO; +ZOFR8TAB24 PO
[2019-12-31] MEDS ORDERED: IBUP-1022 (13:26)
[2019-12-31] MEDS ORDERED: FLUTISP (13:26)
[2019-12-31] MEDS ORDERED: FLUC150T (13:26)
[2019-12-31] MEDS ORDERED: DICY20TA11 (13:26)
[2019-12-31] MEDS ORDERED: LIDOCAINE 1% SDV 5ML VIAL DILUENT ONE (15:00)
[2019-12-31] MEDS ORDERED: metroNIDAZOLE (FLAGYL) 500MG TABLET PO ONE (15:00)
[2019-12-31] MEDS ORDERED: cefTRIAXone SOD 250MG VIAL (J0696 PER 250MG) IM ONE (15:00)
[2019-12-31] MEDS ORDERED: FLAG500T PO (15:07)
[2019-12-31 15:39] VITALS: BP 145/90
[2019-12-31 16:48] LABS: CHLAMYDIA DNA AMPLIFICATION NEGATIVE (NEGATIVE); GC DNA AMPLIFICATION NEGATIVE (NEGATIVE)
== END 2019-12-31 15:41 | disposition home or self-care (01) ==
LOC: M ED 13:16
DX: A59.9 Trichomoniasis, unspecified (principal); N89.8 Other specified noninflammatory disorders of vagina; Z97.5 Presence of (intrauterine) contraceptive device; K21.9 Gastro-esophageal reflux disease without esophagitis; K57.92 Diverticulitis of intestine, part unspecified, without perforation or abscess without bleeding; J30.81 Allergic rhinitis due to animal (cat) (dog) hair and dander; Z87.891 Personal history of nicotine dependence; Z79.899 Other long term (current) drug therapy; Z88.1 Allergy status to other antibiotic agents; Z88.5 Allergy status to narcotic agent; Z88.8 Allergy status to other drugs, medicaments and biological substances; Z91.89 Other specified personal risk factors, not elsewhere classified; Z91.02 Food additives allergy status
CPT/HCPCS: 84702; 87210; 87661; 96372; 99284; J0696

== ENCOUNTER → 2020-02-13 | Outpatient (CLI) | payer BC ==
[~2020-02-13] MED LIST changes: +DICY20TA11; +FLUC150T; +FLUTISP; +IBUP-1022
--- NOTE | 2020-02-13 16:46 | REP ---
INDICATION: N83.20 LEFT OVARIAN CYST COMPARISON: Comparison pelvic sonography November 09, 2019. Comparison CT study November 09, 2019.. TECHNIQUE: Transabdominal and transvaginal scanning were performed. FINDINGS: Uterine dimensions are normal at 9.6 x 4.6 x 6.4 cm. Endometrial echo is 0.6 cm thick and centrally placed. IUD is seen in good position centrally in the endometrium. There is a complex nabothian cyst. No free fluid is seen in the cul-de-sac. Visualized bladder youssef are smooth. The right ovary has dimensions of 3.8 x 2.3 x 2.3 cm. It's Doppler flow is normal with a resistive index of 0.57. There is a 1.6 cm follicle cyst in the right ovary. The left ovary dimensions are normal as well at 3.0 x 2.1 x 2.5 cm. It's Doppler flow was normal with resistive index of 0.42. There is a 1.1 cm follicle cyst in the left ovary. No other ovarian cyst is seen. IMPRESSION: Normal pelvic sonography. No significant ovarian cysts seen. <Electronically signed by Hany Guerrero > 02/13/20 [id number]
== END ==
LOC: M WHC 15:38
PROVIDERS: ATTEND Specialist
DX: N83.202 Unspecified ovarian cyst, left side (principal)

== ENCOUNTER → 2020-04-27 | Outpatient (CLI) | payer SELFPAY ==
[~2020-04-27] MED LIST changes: -MONT10TA4 PO; +MONT5TAB2 PO
== END ==
LOC: M LABSMTC 11:20
PROVIDERS: ATTEND Pediatrics
DX: Z20.828 Contact with and (suspected) exposure to other viral communicable diseases (principal)

== ENCOUNTER 2020-09-15 12:08 | Emergency (ER) | payer BC, SELFPAY ==
[~2020-09-15] VITALS: Ht 172.7 cm; Wt 98.3 kg
[~2020-09-15 12:08] MED LIST changes: +MONT10TA10 PO; -MONT5TAB2 PO
[2020-09-15] MEDS ORDERED: OMEP-218 PO (12:20)
[2020-09-15 12:42] LABS: BASO # 0.1 10^3/uL (0.0-0.2); BASO % 0.8 % (0.0-1.0); EOS # 0.4 10^3/uL (0.0-0.5); EOS % 4.2 % (0.0-3.0); HEMATOCRIT 43.3 % (36.0-47.0); HEMOGLOBIN 14.7 g/dl (12.0-15.5); LYMPH # 2.8 10^3/uL (1.5-5.0); LYMPH % 30.4 % (24.0-44.0); MEAN CORPUSCULAR HEMOGLOBIN 31.4 pg (27.0-33.0); MEAN CORPUSCULAR HGB CONC 33.9 g/dl (32.0-36.5); MEAN CORPUSCULAR VOLUME 92.5 fl (80.0-96.0); MONO # 0.7 10^3/uL (0.0-0.8); MONO % 7.7 % (2.0-8.0); NEUTROPHILS # 5.2 10^3/uL (1.5-8.5); NEUTROPHILS % 56.6 % (36.0-66.0); PLATELET COUNT, AUTOMATED 255 10^3/uL (150-450); RED BLOOD COUNT 4.68 10^6/uL (4.00-5.40); WHITE BLOOD COUNT 9.2 10^3/uL (4.0-10.0)
[2020-09-15] MEDS ORDERED: KETOROLAC 30 MG/ML 1ML VIAL IV ONE (13:00)
[2020-09-15 13:07] LABS: ALBUMIN 4.2 GM/DL (3.2-5.2); BILIRUBIN,DIRECT 0.2 MG/DL (0.0-0.2); BILIRUBIN,TOTAL 0.7 MG/DL (0.2-1.0); TOTAL PROTEIN 7.9 GM/DL (6.4-8.2)
--- NOTE | 2020-09-15 13:55 | REP ---
INDICATION: llq pain. COMPARISON: 02/13/2020 the latest prior TECHNIQUE: Transabdominal and transvaginal scanning FINDINGS: The uterus measures 9.8 x 4.4 x 5.1 cm. Within the endometrial cavity there is a linear specular reflection consistent with an IUD. This distorts the endometrial echo complex which otherwise appears normal. The right ovary measures 2.2 x 1.7 x 1.8 cm and is within normal limits with an RI 0.66. Left ovary measures 4.4 x 2.9 x 4.2 cm. Anechoic structures are seen within the ovary the largest of which measures 2.8 x 1.9 x 2.1 cm. The right ovarian RI is 0.43 Seen within the lower uterine segment there is a hypoechoic structure which measures 2.4 x 2.2 x 1.6 cm. Only 1 color Doppler images of this was obtained showing minimal internal blood flow. When compared to the prior exam this is unchanged. IMPRESSION: 1. Simple left ovarian cyst as described above. This is seen with multiple normal appearing follicles. Follow-up is recommended to ensure complete resolution. 2. Solid lower uterine segment nodule consistent with myomatous change and having a stable appearance compared to 02/13/2020. 3. IUD in place. <Electronically signed by Linus Moscoso > 09/15/20 [id number]
[2020-09-15] MEDS ORDERED: ISOVUE-370 76% 100ML VIAL As Ordered ONE (14:09)
--- NOTE | 2020-09-15 15:36 | REP ---
INDICATION: increased pain llq COMPARISON: 11/09/2019. TECHNIQUE: CT Scan of the abdomen and pelvis was performed with intravenous administration of 100 cc of Isovue 370, without oral contrast. Sagittal and coronal reconstruction images are performed. FINDINGS: Lung bases: Unremarkable. Liver: Fatty infiltration of the liver is suspected. Gallbladder: Unremarkable. Spleen: Normal. Adrenals: Normal. Pancreas: Normal. Kidneys: Normal. Small and large bowel: Diverticulosis of the left colon without CT evidence of diverticulitis.. Free fluid: None. Abdominal aorta: No aneurysm or dissection. Adenopathy: None. Appendix: Prior appendectomy. Osseous structures: Unremarkable. Pelvis: There is an IUD in the uterus. Two cystic structures are seen in the left ovary, the larger measuring approximately 3 cm in maximum diameter.. IMPRESSION: There is a 3 cm cystic structure in the left ovary. No free air or free fluid. No evidence of bowel obstruction. Sigmoid and left colonic diverticulosis without CT evidence of acute diverticulitis.. <Electronically signed by Ashok Levine > 09/15/20 [id number]
[2020-09-15] MEDS ORDERED: KETO10TAB PO (15:40)
[2020-09-15 16:09] VITALS: BP 105/67
--- NOTE | 2020-09-16 10:24 | ED PDOC ---
Post-Departure Follow-Up pelvic us faxed to dr davis and glen haider for fu Capo Gunter MD September 16, 2020 10:23
== END 2020-09-15 16:18 | disposition home or self-care (01) ==
LOC: M ED 12:08
DX: N83.202 Unspecified ovarian cyst, left side (principal); K21.9 Gastro-esophageal reflux disease without esophagitis; K57.32 Diverticulitis of large intestine without perforation or abscess without bleeding; R51.9 Headache, unspecified; J45.909 Unspecified asthma, uncomplicated; K80.20 Calculus of gallbladder without cholecystitis without obstruction; Z97.5 Presence of (intrauterine) contraceptive device; Z79.899 Other long term (current) drug therapy; Z91.81 History of falling; Z88.1 Allergy status to other antibiotic agents; Z88.5 Allergy status to narcotic agent; Z88.8 Allergy status to other drugs, medicaments and biological substances; Z91.89 Other specified personal risk factors, not elsewhere classified
CPT/HCPCS: 36415; 74177; 76830; 76856; 80047; 80076; 81001; 83690; 84702; 85025; 87086; 93976; 96374; 99284; J1885; Q9967

== ENCOUNTER 2020-09-21 18:06 | Emergency (ER) | payer BC ==
[~2020-09-21] VITALS: Ht 172.7 cm; Wt 95.0 kg
[~2020-09-21 18:06] MED LIST changes: +OMEP-218 PO
[2020-09-21] MEDS ORDERED: KETOROLAC TROMETHAMINE 10 MG TAB PO ONE (20:35)
[2020-09-21] MEDS ORDERED: ONDANSETRON 4 MG ORAL DISINTEGRATING TAB PO ONE (20:35)
[2020-09-21 21:08] LABS: BASO # 0.1 10^3/uL (0.0-0.2); BASO % 0.5 % (0.0-1.0); EOS # 0.4 10^3/uL (0.0-0.5); EOS % 2.7 % (0.0-3.0); HEMATOCRIT 42.6 % (36.0-47.0); HEMOGLOBIN 14.1 g/dl (12.0-15.5); LYMPH # 2.6 10^3/uL (1.5-5.0); MEAN CORPUSCULAR HEMOGLOBIN 30.7 pg (27.0-33.0); MEAN CORPUSCULAR HGB CONC 33.1 g/dl (32.0-36.5); MEAN CORPUSCULAR VOLUME 92.8 fl (80.0-96.0); MONO # 0.9 10^3/uL (0.0-0.8); NEUTROPHILS # 8.9 10^3/uL (1.5-8.5); NEUTROPHILS % 69.3 % (36.0-66.0); PLATELET COUNT, AUTOMATED 230 10^3/uL (150-450); RED BLOOD COUNT 4.59 10^6/uL (4.00-5.40); WHITE BLOOD COUNT 12.9 10^3/uL (4.0-10.0)
[2020-09-21 21:40] LABS: ALT/SGPT 39 U/L (12-78); BILIRUBIN,DIRECT 0.2 MG/DL (0.0-0.2); BILIRUBIN,TOTAL 0.8 MG/DL (0.2-1.0); TOTAL PROTEIN 7.8 GM/DL (6.4-8.2)
[2020-09-21 21:43] LABS: HCG, SERUM QUALITATIVE NEGATIVE (NEGATIVE)
--- NOTE | 2020-09-21 22:19 | REPVR ---
PROCEDURE INFORMATION: Exam: US Abdomen, Limited; Right Upper Quadrant Exam date and time: 09/21/2020 9:05 PM Age: 45 years old Clinical indication: Abdominal pain; Acute; Additional info: Ruq pain TECHNIQUE: Imaging protocol: US abdomen. Real time ultrasound with image documentation. Limited exam focused on the right upper quadrant. COMPARISON: GALLBLADDER US 07/09/2018 3:46 AM FINDINGS: Liver: The liver is diffusely echogenic relative to the right kidney, findings consistent with steatosis. Gallbladder: There are gallstones present. No evidence of cholecystitis demonstrated. Common bile duct: The common bile duct measures 4.5 mm. No mass or choledocholithiasis. Pancreas: Limited visualization of the pancreas unremarkable. Right kidney: Right kidney measures 11.9 x 4.4 x 4.7 cm. IMPRESSION: 1. Hepatic steatosis. 2. There are gallstones present. No evidence of cholecystitis demonstrated. Electronically signed by: Simone Fuentes On 09/21/2020 22:18:50 PM
--- NOTE | 2020-09-21 22:19 | REPVR ---
PROCEDURE INFORMATION: Exam: XR Abdomen Exam date and time: 09/21/2020 10:11 PM Age: 45 years old Clinical indication: Abdominal pain; Acute TECHNIQUE: Imaging protocol: XR of the abdomen. Views: Frontal supine view of the abdomen. 1 View. COMPARISON: CT ABD/PEL W/IV CONTRAST ONLY 09/15/2020 3:01 PM FINDINGS: Gastrointestinal tract: Normal. No bowel dilation. Bones/joints: Unremarkable. IMPRESSION: No acute findings. Electronically signed by: Simone Fuentes On 09/21/2020 22:19:18 PM
[2020-09-21] MEDS ORDERED: KETO10TAB PO (23:07)
[2020-09-21] MEDS ORDERED: ZOFR4TAB16 PO (23:08)
[2020-09-21 23:13] VITALS: BP 154/90
== END 2020-09-21 23:16 | disposition home or self-care (01) ==
LOC: M ED 18:06
DX: K80.01 Calculus of gallbladder with acute cholecystitis with obstruction (principal); N83.299 Other ovarian cyst, unspecified side; K57.32 Diverticulitis of large intestine without perforation or abscess without bleeding; K21.9 Gastro-esophageal reflux disease without esophagitis; R51.9 Headache, unspecified; J45.909 Unspecified asthma, uncomplicated; Z79.899 Other long term (current) drug therapy; J30.81 Allergic rhinitis due to animal (cat) (dog) hair and dander; Z91.89 Other specified personal risk factors, not elsewhere classified; Z88.1 Allergy status to other antibiotic agents; Z88.5 Allergy status to narcotic agent; Z88.8 Allergy status to other drugs, medicaments and biological substances
CPT/HCPCS: 74018; 76705; 80047; 80076; 83605; 84703; 85025; 99283; Q0162

== ENCOUNTER 2020-09-22 22:45 | Emergency (ER) | payer BC ==
[~2020-09-22] VITALS: Ht 172.7 cm; Wt 98.3 kg
[~2020-09-22 22:45] MED LIST changes: +ZOFR4TAB16 PO
[2020-09-23] MEDS ORDERED: KETOROLAC 30 MG/ML 1ML VIAL IV ONE (01:15)
[2020-09-23] MEDS ORDERED: NS 1,000 ML IV ONE (01:15)
[2020-09-23 01:31] LABS: BASO # 0.1 10^3/uL (0.0-0.2); BASO % 0.4 % (0.0-1.0); EOS # 0.3 10^3/uL (0.0-0.5); EOS % 1.9 % (0.0-3.0); HEMATOCRIT 39.9 % (36.0-47.0); HEMOGLOBIN 13.3 g/dl (12.0-15.5); LYMPH # 2.4 10^3/uL (1.5-5.0); LYMPH % 16.2 % (24.0-44.0); MEAN CORPUSCULAR HEMOGLOBIN 30.8 pg (27.0-33.0); MEAN CORPUSCULAR HGB CONC 33.3 g/dl (32.0-36.5); MEAN CORPUSCULAR VOLUME 92.4 fl (80.0-96.0); MONO # 1.2 10^3/uL (0.0-0.8); MONO % 8.2 % (2.0-8.0); NEUTROPHILS # 10.8 10^3/uL (1.5-8.5); NEUTROPHILS % 72.8 % (36.0-66.0); PLATELET COUNT, AUTOMATED 209 10^3/uL (150-450); RED BLOOD COUNT 4.32 10^6/uL (4.00-5.40); WHITE BLOOD COUNT 14.9 10^3/uL (4.0-10.0)
[2020-09-23 02:00] LABS: BILIRUBIN,DIRECT 0.3 MG/DL (0.0-0.2); BILIRUBIN,TOTAL 1.2 MG/DL (0.2-1.0); TOTAL PROTEIN 7.7 GM/DL (6.4-8.2)
[2020-09-23] MEDS ORDERED: ISOVUE-370 76% 100ML VIAL As Ordered ONE (02:12)
[2020-09-23] MEDS ORDERED: FLAG500T PO (02:42)
[2020-09-23] MEDS ORDERED: CIPR-249 PO (02:42)
[2020-09-23 03:04] VITALS: BP 116/71
--- NOTE | 2020-09-23 03:24 | REPVR ---
PROCEDURE INFORMATION: Exam: CT Abdomen And Pelvis With Contrast Exam date and time: 09/23/2020 1:49 AM Age: 45 years old Clinical indication: Abdominal pain; Localized; Left lower quadrant (llq); Additional info: Llq pain, HX of diverticul, leukocytosis TECHNIQUE: Imaging protocol: Computed tomography of the abdomen and pelvis with contrast. Radiation optimization: All CT scans at this facility use at least one of these dose optimization techniques: automated exposure control; mA and/or kV adjustment per patient size (includes targeted exams where dose is matched to clinical indication); or iterative reconstruction. Contrast material: ISO; Contrast volume: 100 ml; Contrast route: INTRAVENOUS (IV); COMPARISON: CT ABD/PEL W/IV CONTRAST ONLY 09/15/2020 3:01 PM FINDINGS: Lungs: There are mild bibasilar dependent changes. Liver: Hepatomegaly measures 22 cm. Hepatic steatosis. Gallbladder and bile ducts: Normal. No calcified stones. No ductal dilation. Pancreas: Normal. No ductal dilation. Spleen: Normal. No splenomegaly. Adrenal glands: Normal. No mass. Kidneys and ureters: Normal. No hydronephrosis. Stomach and bowel: There is diverticulosis. There is inflammatory change at the junction of the descending colon and sigmoid colon. No drainable fluid collection. Appendix: Previous appendectomy. Intraperitoneal space: See "Stomach and bowel" finding. Vasculature: There are multiple phleboliths within the pelvis. Lymph nodes: Unremarkable. No enlarged lymph nodes. Urinary bladder: Unremarkable as visualized. Reproductive: IUD is present. Cystic appearance of the left adnexa is similar from prior examination. Bones/joints: Unremarkable. No acute fracture. Soft tissues: Small fat containing umbilical hernia. IMPRESSION: 1. Positive for acute diverticulitis at the junction of the descending colon and sigmoid colon. 2. No complicating features. Electronically signed by: Hemanth Estrella On 09/23/2020 03:23:53 AM
== END 2020-09-23 03:55 | disposition home or self-care (01) ==
LOC: M ED 22:45
DX: K57.32 Diverticulitis of large intestine without perforation or abscess without bleeding (principal); E11.9 Type 2 diabetes mellitus without complications; Z79.51 Long term (current) use of inhaled steroids; Z79.4 Long term (current) use of insulin; Z79.899 Other long term (current) drug therapy; Z91.048 Other nonmedicinal substance allergy status; Z91.02 Food additives allergy status; Z88.1 Allergy status to other antibiotic agents; Z88.8 Allergy status to other drugs, medicaments and biological substances; Z88.5 Allergy status to narcotic agent; Z87.19 Personal history of other diseases of the digestive system; Z87.42 Personal history of other diseases of the female genital tract; Z98.890 Other specified postprocedural states
CPT/HCPCS: 74177; 80076; 81001; 83690; 84702; 85025; 87086; 96361; 96374; 99284; J1885; Q9967

== ENCOUNTER → 2020-09-29 | Outpatient (CLI) | payer BC ==
[2020-09-29 17:11] LABS: BASO # 0.1 10^3/uL (0.0-0.2); BASO % 1.1 % (0.0-1.0); EOS # 0.4 10^3/uL (0.0-0.5); EOS % 4.2 % (0.0-3.0); HEMATOCRIT 45.5 % (36.0-47.0); HEMOGLOBIN 14.8 g/dl (12.0-15.5); LYMPH # 2.8 10^3/uL (1.5-5.0); LYMPH % 32.4 % (24.0-44.0); MEAN CORPUSCULAR HEMOGLOBIN 30.6 pg (27.0-33.0); MEAN CORPUSCULAR HGB CONC 32.5 g/dl (32.0-36.5); MONO # 0.6 10^3/uL (0.0-0.8); MONO % 7.1 % (2.0-8.0); NEUTROPHILS # 4.7 10^3/uL (1.5-8.5); NEUTROPHILS % 54.7 % (36.0-66.0); PLATELET COUNT, AUTOMATED 281 10^3/uL (150-450); RED BLOOD COUNT 4.84 10^6/uL (4.00-5.40); WHITE BLOOD COUNT 8.6 10^3/uL (4.0-10.0)
[2020-09-29 17:38] LABS: ALBUMIN 4.2 GM/DL (3.2-5.2); ALT/SGPT 51 U/L (12-78); BILIRUBIN,TOTAL 0.5 MG/DL (0.2-1.0); BLOOD UREA NITROGEN 14 MG/DL (7-18); CALCIUM LEVEL 9.9 MG/DL (8.5-10.1); CARBON DIOXIDE LEVEL 25 MEQ/L (21-32); CHLORIDE LEVEL 105 MEQ/L (98-107); CREATININE FOR GFR 0.83 MG/DL (0.55-1.30); GLOMERULAR FILTRATION RATE > 60.0 (>58); GLUCOSE, FASTING 115 MG/DL (70-100); POTASSIUM SERUM 4.4 MEQ/L (3.5-5.1); SODIUM LEVEL 138 MEQ/L (136-145)
[2020-09-29 17:41] LABS: THYROGLOBULIN ANTIBODY < 15.0 U/ML (<60.0); THYROID PEROXIDASE ANTIBODY 33.3 U/ML (<60.0)
[2020-09-29 17:42] LABS: HEPATITIS B SURFACE ANTIBODY POSITIVE (POSITIVE)
[2020-09-29 17:53] LABS: HEPATITIS B SURFACE ANTIGEN NEGATIVE (NEGATIVE)
[2020-09-29 18:21] LABS: HEPATITIS C VIRUS ABY INDEX 0.1 INDEX (<0.8)
== END ==
LOC: M WUC 12:04
PROVIDERS: ATTEND Registered Nurse General Practice
DX: L50.9 Urticaria, unspecified (principal)

== ENCOUNTER 2020-11-19 23:40 | Emergency (ER) | payer BC ==
[~2020-11-19] VITALS: Ht 172.7 cm; Wt 97.6 kg
[2020-11-19] MEDS ORDERED: diphenhydrAMINE 50MG/ML VIAL (J1200) IV STA (23:58)
[2020-11-20] MEDS ORDERED: FAMOTIDINE INJ 20MG/2ML VIAL (S0028 PER 1) IVP ONE
[2020-11-20] MEDS ORDERED: methylPREDNISolone 125MG 2ML VIAL IV ONE
[2020-11-20 03:16] VITALS: BP 126/77
[2020-11-20] MEDS ORDERED: PRED20TA PO (03:19)
== END 2020-11-20 03:38 | disposition home or self-care (01) ==
LOC: M ED 23:40
DX: L29.9 Pruritus, unspecified (principal); T78.40XA Allergy, unspecified, initial encounter; Y92.9 Unspecified place or not applicable; Y93.9 Activity, unspecified; J45.909 Unspecified asthma, uncomplicated; Z79.899 Other long term (current) drug therapy; J30.81 Allergic rhinitis due to animal (cat) (dog) hair and dander; Z91.89 Other specified personal risk factors, not elsewhere classified; Z88.1 Allergy status to other antibiotic agents; Z88.5 Allergy status to narcotic agent
CPT/HCPCS: 93041; 94760; 99285; J1200; J2930

== ENCOUNTER 2021-01-14 09:45 | Emergency (ER) | payer BC ==
[~2021-01-14] VITALS: Ht 172.7 cm; Wt 96.6 kg
[~2021-01-14 09:45] MED LIST changes: +PRED20TA PO
[2021-01-14] MEDS ORDERED: CETI-24 (10:06)
--- NOTE | 2021-01-14 10:29 | REP ---
INDICATION: trauma COMPARISON: 10/30/2015. TECHNIQUE: Four views right foot. FINDINGS: There is no evidence of acute fracture, dislocation, or intrinsic bone disease.There is a tiny inferior calcaneal spur. IMPRESSION: No fracture or dislocation. <Electronically signed by Ashok Levine > 01/14/21 102
[2021-01-14 12:36] VITALS: BP 145/89
== END 2021-01-14 12:37 | disposition home or self-care (01) ==
LOC: M ED 09:45
DX: S90.31XA Contusion of right foot, initial encounter (principal); W20.8XXA Other cause of strike by thrown, projected or falling object, initial encounter; Y92.099 Unspecified place in other non-institutional residence as the place of occurrence of the external cause; Y93.9 Activity, unspecified; Y99.9 Unspecified external cause status; E11.9 Type 2 diabetes mellitus without complications; K21.9 Gastro-esophageal reflux disease without esophagitis; J45.909 Unspecified asthma, uncomplicated; J30.81 Allergic rhinitis due to animal (cat) (dog) hair and dander; Z79.899 Other long term (current) drug therapy; Z88.1 Allergy status to other antibiotic agents; Z88.5 Allergy status to narcotic agent; Z88.8 Allergy status to other drugs, medicaments and biological substances; Z91.89 Other specified personal risk factors, not elsewhere classified; Z91.02 Food additives allergy status

== ENCOUNTER 2021-03-12 22:24 | Emergency (ER) | payer BC ==
[~2021-03-12] VITALS: Ht 172.7 cm; Wt 91.8 kg
[~2021-03-12 22:24] MED LIST changes: +CETI-24
--- OUTSIDE RECORDS SUMMARY | 2021-03-12 22:31 | CCD | Continuity of Care Document ---
Author Author [facility], [facility] Organization Unknown Address [address] [place] [address] Phone [phone] Care Team Providers Care Conservation Engineer Name Role Phone Kamilla VEGA, Dagmar AUTM [phone] Problems Description No Information Available Social History Type Date Description Comments Sex Unknown ETOH Use Denies alcohol use Tobacco Use Start: Unknown End: Unknown Patient is a former smoker 98 Sun Exposure excessive amount of sun exposure Sun Exposure Tanning bed - Has used in past. No longer using. Sun Exposure Has experienced blistering from sunburns Sun Exposure Uses > 30 SPF SPF 110 Allergies and adverse reactions Active Allergies Criticality Reaction | Severity Comments Date Hydrocodone Unable to assess criticality 10/12/2020 Azithromycin Unable to assess criticality 10/12/2020 Mucinex Unable to assess criticality 10/12/2020 Medications Active Medications SIG Qnty Indications Ordering Provide r Date Dulera Unknown Omeprazole Unknown Ventolin HFA Unknown Vitamin D Unknown Probiotic Unknown Immunizations Description No Information Available Vital Signs Description No Information Available Results Description No Information Available Procedures Description No Information Available Medical Devices Description No Information Available Encounters Description No Information Available Assessments Date Code Description Provider 02/05/2021 L98.8 Other specified disorders of the skin and subcutaneous tissue Fawn Hathaway, F.N.P. 02/05/2021 L98.8 Other specified disorders of the skin and subcutaneous tissue [facility] 01/22/2021 L98.8 Other specified disorders of the skin and subcutaneous tissue Fawn Hathaway, F.N.P. 11/09/2020 L98.8 Other specified disorders of the skin and subcutaneous tissue Fawn Hathaway F.N.P. 11/09/2020 L98.8 Other specified disorders of the skin and subcutaneous tissue Cosmetic Consultation 10/23/2020 L98.8 Other specified disorders of the skin and subcutaneous tissue Fawn Hathaway F.N.P. 10/23/2020 L98.8 Other specified disorders of the skin and subcutaneous tissue Fawn Hathaway F.N.P. 10/23/2020 L98.8 Other specified disorders of the skin and subcutaneous tissue Cosmetic Consultation 09/18/2020 L98.8 Other specified disorders of the skin and subcutaneous tissue Fawn Hathaway F.N.P. 09/18/2020 L68.0 Hirsutism Fawn vasquez F.N.P. 09/18/2020 L98.8 Other specified disorders of the skin and subcutaneous tissue [facility] 09/18/2020 L98.8 Other specified disorders of the skin and subcutaneous tissue Cosmetic Consultation Plan of Treatment Future Appointment(s):* 03/05/2021 9:45 am - [facility] 09/18/2020 - [facility]* L98.8 Other specified disorders of the skin and subcutaneous tissue Functional Status Description No Information Available Mental Status Description No Information Available Referrals Description No Information Available"
--- OUTSIDE RECORDS SUMMARY | 2021-03-12 22:31 | CCD | Continuity of Care Document ---
Author Author Talia [facility] Organization Unknown Address [address] [place] [id number] Phone [phone] Care Team Providers Care Senior Energy Trader Name Role Phone Reagan Mc M.D. AUTM [phone] Samuel Rendon M.D. AUTM [phone] Problems Active Problems Provider Date Asthma without status asthmaticus Adiel Lawton RPA Ons et: 07/31/2002 Peptic reflux disease Marietta Sanz RPA Onset: 10/11/2005 Allergic rhinitis Samuel Mendiola RPA Onset: 11/15/2006 Vitamin D deficiency Onset: Female infertility Samuel Mendiola RPA Onset: 07/01/2009 Impaired fasting glycemia Samuel Mendiola RPA Onset: 01/30 Sciatica Samuel Mendiola RPA Onset: 09/01/2011 Mixed hyperlipidemia Samuel Mendiola RPA Onset: 2 Chronic sinusitis Samuel Mendiola RPA Onset: 03/06/2012 Goiter Samuel Mendiola RPA Onset: 05/17/2013 Non-toxic nodular goiter Samuel Mendiola RPA Onset: 03/03 Raynaud's disease Samuel Mendiola RPA Onset: 03/03/2015 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 Samuel Mendiola RPA Onset: 06/07/19 Cholinergic urticaria Samuel Mendiola RPA Onset: 06/07/19 Note: Sweating triggers Gastro-esophageal reflux disease with esophagitis Izabella Mendiola RPA Onset: 01/04/2018 Polyarthropathy Samuel Mendiola RPA Onset: 01/04/2018 Prediabetes Samuel Mendiola RPA Onset: 12/01/2020 History of polyp of colon Samuel Mendiola RPA Onset: 06/30 Gastric polyposis Samuel Mendiola RPA Onset: 07/26/2019 Gastric polyposis Samuel Mendiola RPA Onset: 11/08/2019 Gastric polyposis Samuel Mendiola RPA Onset: 02/10/2020 Gastric polyposis Samuel Mendiola RPA Onset: 07/15/2020 Anxiety state Samuel Mendiola RPA Onset: 12/01/2020 Social History Type Date Description Comments Sex Unknown Tobacco Use Start: Unknown Former cigarette smo ker, smoked 1PPD x 8 yrs, quit 1997. ETOH Use Denies alcohol use Recreational Drug Use Never Used Drugs Tobacco Use Start: Unknown End: Unknown Patient is a former smoker Exercise Type/Frequency exercises regularly Seat Belt/Car Seat always Allergies, Adverse Reactions, Alerts Active Allergies Criticality Reaction | Severity Comments Date Nexium Unable to assess criticality facial swell ing-suspects purple dye 05/16/2003 Zithromax Unable to assess criticality Rash 05/17/2013 Mucinex Unable to assess criticality Urticaria 06/07/2017 Medications Active Medications SIG Qnty Indications Ordering Provide r Date Buspirone HCL 5mg Tablets 1 by mouth three times a day as needed anxiety 90tabs Shar Lubin, [facility] 12/18/2020 Dexcom G6 Senior Staff Accountant Device sig as directed 1units Richy Umana D.O., [facility] 06/2020 Dexcom G6 Sensor Misc as directed 1units Richy Umana D.O., [facility] 12/01/2020 Dexcom G6 Transmitter Misc as directed 1units Richy Umana D.O., [facility] 12/01/2020 Epipen 2-Dru 0.3mg/0 .3ML Solution Auto-Inject inject as directed 2units Richy Umana D.O., [facility] 07/15/2020 Dulera 200-5mcg/Act Aerosol Use 2 Inhalations Twice A Day 39units Richy Umana D.O., [facility] 07/26/2019 Pantoprazole Sodium 40mg Tablets D R Take 1 Tablet Daily 90tabs Richy Umana D.O., [facility] Probiotic Formula 1- 250Billion-mg Capsules Take 1 Capsule Daily 90caps Preston Lubin, [facility] 06/03/2019 Onetouch Verio w/Device Kit as directed to test blood glucose daily 1units Kaden Fabian M.D. 01/25/2019 Onetouch Verio Strips for testing bs once daily 100units Kaden Fabian M.D. 01/26/20 19 Ventolin HFA 108(90Base) mcg/Act A erosol use 2 inhalations every 4 to 6 hours as needed for shortness of breath 3units Richy Umana D.O., [facility] 01/27/2010 Vitamin D 1000Unit Capsules 1 by mouth every day Unknown Cetirizine HCL 10mg Tablets take one tablet daily 90tabs Richy Umana D.O., [facility] Benadryl Allergy Childrens 12.5mg/5ML Liquid 20mL by mouth daily at bedtime for sleep prn Unknown History Medications Citalopram Hydrobromide 10mg Table ts 1 by mouth every day at bedtime 30tabs Richy Umana D.O. , [facility] 12/01/2020 - 12/18/2020 Prednisone 10mg Tablets 2 po tid x 3 days, then 1 po tid x 3 days, then 1 po bid x 3 days, then 1 po qd x 3 days, then 1/2 po qd 42tabs Richy Umana D.O., [facility] - 07/29/2020 Triamcinolone Acetonide 0.1% Cream apply locally to rash twice a day 45gm Richy Umana D.O ., [facility] 07/15/2020 - 12/01/2020 Medications Administered in Office Medication SIG Qnty Indications Ordering Provider Date Injection (SC)/(Im) Injection Samuel Mendiola RPA 03/06/2012 Immunizations CPT Code Status Date Vaccine Lot # [id number] Given 04/07/2016 Tdap Tetanus,Dip htheria Toxoids/Acellular Pertussis 7Yrs Or Older [id number] Given 03/06/2012 Influenza Virus Vac. Split Virus Individuals 3 Years And Above [id number] Refused 04/15/2019 Influenza Virus Vaccine, Quadrivalent, Slit Virus, Im Use 3Y & Up Vital Signs Date Vital Result Comment 12/18/2020 2:46pm BP Systolic 104 mmHg BP Diastolic 80 mmHg Body Temperature 97.3 F Heart Rate 89 /min Respiratory Rate 16 /min Height 68.50 inches 5'8.50" Weight 213.00 lb [place] Body Weight 140 lb BMI (Body Mass Index) 31.9 kg/m2 O2 % BldC Oximetry 99 % 12/01/2020 3:45pm BP Systolic 122 mmHg BP Diastolic 72 mmHg Body Temperature 98.2 F Heart Rate 92 /min Respiratory Rate 18 /min Height 68.50 inches 5'8.50" Weight 214.00 lb [place] Body Weight 140 lb BMI (Body Mass Index) 32.1 kg/m2 O2 % BldC Oximetry 98 % Results Test Acquired Date Facility Test Result H/L Range Note Laboratory test finding 12/01/2020 [facility] Hemoglobin A1c 6.3 % High 4.50-6.20 Laboratory test finding 09/23/2020 [facility] ([facility]) [phone] iSTAT B-hCG < 5.0 Normal 1 Ua W/ Reflex To Culture 09/23/2020 [facility] ([facility]) [phone] Appearance, Urine RFX HAZY Normal Clear Color, Urine RFX YELLOW Normal Yellow PH,Urine RFX 6.0 units Normal 5.0-9.0 Specific [place] Ur Auto RFX 1.012 Normal 1.002-1.035 Protein, Urine Auto RFX NEGATIVE mg/dL Normal Negative Glucose, Urine (Ua) Auto RFX NEGATIVE mg/dL Normal Negative Ketone, Urine Auto RFX NEGATIVE mg/dL Normal Negative Urobilinogen, Urine Auto RFX 0.2 mg/dL Normal 0.0-2.0 Bilirubin, Urine Auto RFX NEGATIVE Normal Negative Nitrite, Urine Auto RFX NEGATIVE Normal Negative Leukocyte Esterase Ur Auto RFX 1+ High Negative Blood, Urine Blood RFX NEGATIVE Normal Negative WBC, Urine Auto RFX 7 /HPF High 0-3 RBC, Urine Auto RFX 4 /HPF High 0-3 Bacteria, Urine Auto RFX 1+ High Negative Squam Epithelial Cell Ur Aurfx 7 /HPF Normal 0-6 Mucus, Urine RFX SMALL Normal Negative Hyaline Cast, Urine Auto RFX 0 /LPF Normal 0-1 CBC With Differential 09/23/2020 [facility] ([facility]) [phone] White Blood Count 14.9 10 High 4.0-10.0 Red Blood Count 4.32 10 Normal 4.00-5.40 Hemoglobin 13.3 g/dL Normal 12.0-15.5 Hematocrit 39.9 % Normal 36.0-47.0 Mean Corpuscular Volume 92.4 fl Normal 80.0-96.0 Mean Corpuscular Hemoglobin 30.8 pg Normal 27.0-33.0 Mean Corpuscular HGB Conc 33.3 g/dL Normal 32.0-36.5 Red Cell Distribution Width 12.5 % Normal 11.5-14.5 Platelet Count, Automated 209 10 Normal 150-450 Neutrophils % 72.8 % High 36.0-66.0 Lymph % 16.2 % Low 24.0-44.0 [place] % 8.2 % High 2.0-8.0 Eos % 1.9 % Normal 0.0-3.0 Baso % 0.4 % Normal 0.0-1.0 Immature Granulocyte % 0.5 % Normal 0-3.0 Nucleated Red Blood Cell % 0.0 % Normal 0-0 Neutrophils # 10.8 10 High 1.5-8.5 Lymph # 2.4 10 Normal 1.5-5.0 [place] # 1.2 10 High 0.0-0.8 Eos # 0.3 10 Normal 0.0-0.5 Baso # 0.1 10 Normal 0.0-0.2 Liver Profile 09/23/2020 [facility] ([facility]) [phone] Ast/Sgot 15 U/L Normal 7-37 Alt/SGPT 33 U/L Normal 12-78 Alkaline Phosphatase 56 U/L Normal 45-117 Bilirubin,Total 1.2 mg/dL High 0.2-1.0 Bilirubin,Direct 0.3 mg/dL High 0.0-0.2 Total Protein 7.7 GM/DL Normal 6.4-8.2 Albumin 4.0 GM/DL Normal 3.2-5.2 Albumin/Globulin Ratio 1.1 Low 1.2-2.2 Laboratory test finding 09/23/2020 [facility] ([facility]) [phone] Lipase 62 U/L Low 73-393 Reflex Urine Culture 09/23/2020 [facility] ( [facility]) [phone] Reflex Urine Culture FULL REPORT IN L <SEE NOTE> Norm al 2 Laboratory test finding 09/21/2020 [facility] ([facility]) [phone] HCG Serum Qualitative NEGATIVE Normal Negative Liver Profile 09/21/2020 [facility] ([facility]) [phone] Ast/Sgot 20 U/L Normal 7-37 Alt/SGPT 39 U/L Normal 12-78 Alkaline Phosphatase 53 U/L Normal 45-117 Bilirubin,Total 0.8 mg/dL Normal 0.2-1.0 Bilirubin,Direct 0.2 mg/dL Normal 0.0-0.2 Total Protein 7.8 GM/DL Normal 6.4-8.2 Albumin 4.0 GM/DL Normal 3.2-5.2 Albumin/Globulin Ratio 1.1 Low 1.2-2.2 Laboratory test finding 09/21/2020 [facility] ([facility]) [phone] Lactic Acid Sepsis Protocol 0.8 mmol/L Normal 0.4- 2.0 3 CBC With Differential 09/21/2020 [facility] ([facility]) [phone] White Blood Count 12.9 10 High 4.0-10.0 Red Blood Count 4.59 10 Normal 4.00-5.40 Hemoglobin 14.1 g/dL Normal 12.0-15.5 Hematocrit 42.6 % Normal 36.0-47.0 Mean Corpuscular Volume 92.8 fl Normal 80.0-96.0 Mean Corpuscular Hemoglobin 30.7 pg Normal 27.0-33.0 Mean Corpuscular HGB Conc 33.1 g/dL Normal 32.0-36.5 Red Cell Distribution Width 12.7 % Normal 11.5-14.5 Platelet Count, Automated 230 10 Normal 150-450 Neutrophils % 69.3 % High 36.0-66.0 Lymph % 20.0 % Low 24.0-44.0 [place]ville % 7.0 % Normal 2.0-8.0 Eos % 2.7 % Normal 0.0-3.0 Baso % 0.5 % Normal 0.0-1.0 Immature Granulocyte % 0.5 % Normal 0-3.0 Nucleated Red Blood Cell % 0.0 % Normal 0-0 Neutrophils # 8.9 10 High 1.5-8.5 Lymph # 2.6 10 Normal 1.5-5.0 [place] # 0.9 10 High 0.0-0.8 Eos # 0.4 10 Normal 0.0-0.5 Baso # 0.1 10 Normal 0.0-0.2 Istat Chem8+ Panel 09/21/2020 [facility]) [phone] iSTAT HCT 43.0 % Normal 38.0-51.0 iSTAT Glucose 107 mg/dL High 70-105 iSTAT Sodium 139 mEq/L Normal 136-145 iSTAT Potassium 3.9 mEq/L Normal 3.5-5.1 iSTAT CA++ 4.8 mg/dL Normal 4.5-5.3 iSTAT Chloride 102 mEq/L Normal 98-109 iSTAT Co2 27.0 MM/L Normal 23.0-27.0 iSTAT BUN 12 mg/dL Normal 8-26 iSTAT Creatinine 0.8 mg/dL Normal 0.6-1.3 Laboratory test finding 09/15/2020 [facility] ([facility]) [phone] iSTAT B-hCG < 5.0 Normal 4 Istat Chem8+ Panel 09/15/2020 [facility]) [phone] iSTAT HCT 43.0 % Normal 38.0-51.0 iSTAT Glucose 132 mg/dL High 70-105 iSTAT Sodium 139 mEq/L Normal 136-145 iSTAT Potassium 4.4 mEq/L Normal 3.5-5.1 iSTAT CA++ 4.7 mg/dL Normal 4.5-5.3 iSTAT Chloride 102 mEq/L Normal 98-109 iSTAT Co2 28.0 MM/L High 23.0-27.0 iSTAT BUN 13 mg/dL Normal 8-26 iSTAT Creatinine 0.8 mg/dL Normal 0.6-1.3 Reflex Urine Culture 09/15/2020 [facility]) [phone] Reflex Urine Culture FULL REPORT IN L <SEE NOTE> Norm al 5 Ua W/ Reflex To Culture 09/15/2020 [facility] ([facility]) [phone] Appearance, Urine RFX HAZY Normal Clear Color, Urine RFX YELLOW Normal Yellow PH,Urine RFX 7.0 units Normal 5.0-9.0 Specific [place] Ur Auto RFX 1.012 Normal 1.002-1.035 Protein, Urine Auto RFX NEGATIVE mg/dL Normal Negative Glucose, Urine (Ua) Auto RFX NEGATIVE mg/dL Normal Negative Ketone, Urine Auto RFX NEGATIVE mg/dL Normal Negative Urobilinogen, Urine Auto RFX 0.2 mg/dL Normal 0.0-2.0 Bilirubin, Urine Auto RFX NEGATIVE Normal Negative Nitrite, Urine Auto RFX NEGATIVE Normal Negative Leukocyte Esterase Ur Auto RFX TRACE High Negative Blood, Urine Blood RFX NEGATIVE Normal Negative WBC, Urine Auto RFX 2 /HPF Normal 0-3 RBC, Urine Auto RFX 0 /HPF Normal 0-3 Bacteria, Urine Auto RFX NEGATIVE Normal Negative Squam Epithelial Cell Ur Aurfx 2 /HPF Normal 0-6 Hyaline Cast, Urine Auto RFX 0 /LPF Normal 0-1 CBC With Differential 09/15/2020 [facility]) [phone] White Blood Count 9.2 10 Normal 4.0-10.0 Red Blood Count 4.68 10 Normal 4.00-5.40 Hemoglobin 14.7 g/dL Normal 12.0-15.5 Hematocrit 43.3 % Normal 36.0-47.0 Mean Corpuscular Volume 92.5 fl Normal 80.0-96.0 Mean Corpuscular Hemoglobin 31.4 pg Normal 27.0-33.0 Mean Corpuscular HGB Conc 33.9 g/dL Normal 32.0-36.5 Red Cell Distribution Width 13.1 % Normal 11.5-14.5 Platelet Count, Automated 255 10 Normal 150-450 Neutrophils % 56.6 % Normal 36.0-66.0 Lymph % 30.4 % Normal 24.0-44.0 [place] % 7.7 % Normal 2.0-8.0 Eos % 4.2 % High 0.0-3.0 Baso % 0.8 % Normal 0.0-1.0 Immature Granulocyte % 0.3 % Normal 0-3.0 Nucleated Red Blood Cell % 0.0 % Normal 0-0 Neutrophils # 5.2 10 Normal 1.5-8.5 Lymph # 2.8 10 Normal 1.5-5.0 [place] # 0.7 10 Normal 0.0-0.8 Eos # 0.4 10 Normal 0.0-0.5 Baso # 0.1 10 Normal 0.0-0.2 Liver Profile 09/15/2020 [facility] ([facility]) [phone] Ast/Sgot 28 U/L Normal 7-37 Alt/SGPT 49 U/L Normal 12-78 Alkaline Phosphatase 58 U/L Normal 45-117 Bilirubin,Total 0.7 mg/dL Normal 0.2-1.0 Bilirubin,Direct 0.2 mg/dL Normal 0.0-0.2 Total Protein 7.9 GM/DL Normal 6.4-8.2 Albumin 4.2 GM/DL Normal 3.2-5.2 Albumin/Globulin Ratio 1.1 Low 1.2-2.2 Laboratory test finding 09/15/2020 [facility] (Interface) [phone] Lipase 95 U/L Normal 73-393 Laboratory test finding 07/15/2020 [facility] Sedimentation Rate 4 mm/hr 0 - 19 CBC 07/15/2020 [facility] WBC 7.0 10E3/uL 4.1 - 10.9 6 RBC 4.63 10E6/uL 4.20 - 6.30 HGB 14.1 g/dL 12.0 - 18.0 HCT 41.3 % 37.0 - 51.0 MCV 89.2 fL 80.0 - 97.0 MCH 30.5 pg 26.0 - 32.0 MCHC 34.1 g/dL 31.0 - 36.0 PLT 204 10E3/uL 140 - 440 RDW-CV 12.0 % 11.5 - 14.5 Lym% 35.0 % 10.0 - 58.5 Neut% 54.8 % 37.0 - 92.0 MXD% 10.2 % 0.1 - 24.0 Lym# 2.5 10E3/uL 0.6 - 4.1 Neut# 3.8 % 2.0 - 7.8 MXD# 0.7 10E3/uL 0.0 - 1.8 MPV 11.8 fL 9.0 - 13.0 CMP 07/15/2020 [facility] Glu 112 mg/dL High 70 - 110 BUN 12 mg/dL 8 - 23 Creat 0.8 mg/dL 0.5 - 1.0 BUN/Creatinine Ratio 15.2 CALC Na 136 mmol/L 136 - 145 K 4.3 mmol/L 3.5 - 5.1 CL 102.0 mmol/L 98.0 - 107.0 Co2 22.7 mmol/L 22.0 - 29.0 CA 9.7 mg/dL 8.6 - 10.2 TP 7.5 g/dL 6.6 - 8.7 Alb 4.5 g/dL 3.4 - 4.8 A/G Ratio 1.5 CALC Globulin 3.1 CALC Alp 55.1 U/L 35 - 129 Alt (SGPT) 25 U/L 0 - 41 Ast (Sgot) 23 U/L 0 - 40 Tbili 0.61 mg/dL 0.0 - 1.2 Osmolality-Calculated 271.6 CALC Anion Gap 15 mmol/L eGFR 103 # Calc 7 eGFR Non-Afr. Haitian 89 # Calc 8 Lipid Panel 07/15/2020 [facility] Chol 167 mg/dL 0 - 200 Trig 177 mg/dL 40 - 200 HDL 34 mg/dL Low 45 - 65 LDL_C 98 Calc 75 - 129 Cho/HDL Ratio 4.9 CALC 1 QUANTITATIVE RESULT QUALITATIVE INTERPRETATION <5.0 IU/L NEGATIVE 5.0 - 25.0 IU/L INDETER MINATE >25.0 IU/L POSITIVE 2 FULL REPORT IN LAB NOTES (eC W and Medsal). NO GROWTH CLINICAL SIGNIFICANCE 2 OR MORE ORGANISMS 3 Y/N query for Sepsis Lactate Rule: Y 4 QUANTITATIVE RESULT QUALITATIVE INTERPRETATION <5.0 IU/L NEGATIVE 5.0 - 25.0 IU/L INDETER MINATE >25.0 IU/L POSITIVE 5 FULL REPORT IN LAB NOTES (eC W and Medsal). NO GROWTH CLINICAL SIGNIFICANCE 2 OR MORE ORGANISMS 6 NORMAL RANGES Age WBC RBC HGB HCT MCV PLT Adult M 4.1-10.9 4.20-6.30 12.0-18.0 37.0-51.0 80-97 140-440 Adult F 4.1-10.9 4.04-5.48 12.0-18.0 37.0-51.0 80-97 140-440 0 -1 Yr 5.0-20.0 3.9-5.9 15-18 MV: 44 MV: 91 MV: 277 2-9 Yr. 6.0-17.0 3.8-5.4 11-13 MV: 37 MV: 78 MV: 300 10 Yrs. 5.0-13.0 3.8-5.4 12-15 MV: 39 MV: 80 MV: 250 NOTE: * FOR ADULT BLACK MALES AND FEMALES, NORMAL WBC IS 2.9-7.7 K/ML * FOR ADULT BLACK MALES AND FEMALES, NORMAL RBC,HGB, AND HCT IS 5% LESS SOURCE FOR DATA: [employer] 1800 OPERATION MANUAL( AUTOMATED BLOOD COUNTS AND DIFF.) APPENDIX B-3 CHRONIC KIDNEY DISEASE STAGING PER NKF: MALE GFR INTERPRETATION: 20-49 YRS: >60 mL/min Normal 50-59 YRS: >56 mL/min Normal 60-69 YRS: >49 mL/min Normal 70-79 YRS: >42 mL/min Normal 80 and above >35 mL/min Normal FEMALE GRF INTERPRETATION: 20-39 YRS: >60 mL/min Normal 40-49 YRS: >58 mL/min Normal 50-59 YRS: >51 mL/min Normal 60-69 YRS: >45 mL/min Normal 70-79 YRS: >39 mL/min Normal 80 and above >32 mL/min NormalCLASSIFICATION CHOLESTEROL FOR ADULTS CHILDREN/ADOLESCENTS* DESIRABLE: <200 MG/DL <170 MG/DL BORDER-LINE HIGH RISK: 200-239 MG/DL 170-199 MG/DL HIGH RISK: >240 MG/DL >200 MG/DL CLASS. FOR PRIMARY LDL CHOL PREVENTION: LDL CHOL-CHILD/ADOLESCENTS* DESIRABLE: <130 MG/DL <110 MG/DL BORDERLINE-HIGH RISK: 130-159 MG/DL 110-129 MG/DL HIGH RISK: >160 MG/DL >130 MG/DL *CHILDREN AND ADOLESCENTS REPRESENTS INDIVIDUALA AGED 2-19 YEARS EXCLUSIVE. 7 CKD-EPI 8 CKD-EPI Procedures Date Code Description Status 12/01/2020 97439 Office/Outpatient Established Lo w MDM 20-29 Min Completed 12/01/2020 15422 Capillary Blood Collection Finge r, Heel, Ear Stick Completed 10/19/2020 92713 Office/Outpatient Established Mo d MDM 30-39 Min Completed 07/15/2020 41813 Office/Outpatient Established Mo d MDM 30-39 Min Completed Medical Devices Description No Information Available Encounters Type Date Location Provider Dx Diagnosis Office Visit 12/01/2020 3:30p [facility] Samuel Mendiola, RP A F41.9 Anxiety disorder, unspecified R73.03 Prediabetes Office Visit 10/19/2020 1:15p [facility] Samuel Mendiola, RP A L56.3 Solar urticaria Z87.892 Personal history of anaphyla xis J30.9 Allergic rhinitis, unspecifi ed Office Visit 07/15/2020 11:30a [facility] Samuel Mendiola, RP A E78.2 Mixed hyperlipidemia R73.01 Impaired fasting glucose E04.9 Nontoxic goiter, unspecified J32.9 Chronic sinusitis, unspecifi ed J30.9 Allergic rhinitis, unspecifi ed M54.30 Sciatica, unspecified side K21.00 Gastro-esophageal reflux dis with esophagitis, without bleed I73.00 Raynaud's syndrome without g angrene J45.909 Unspecified asthma, uncompli cated Z86.010 Personal history of colonic polyps K31.7 Polyp of stomach and duodenu m R21 Rash and other nonspecific s kin eruption Assessments Date Code Description Provider 12/18/2020 R73.03 Prediabetes Samuel Mendiola, RPA 12/18/2020 F41.9 Anxiety disorder, unspecified Hi Samuel calderon, RPA 12/01/2020 F41.9 Anxiety disorder, unspecified Hi Samuel calderon, RPA 12/01/2020 R73.03 Prediabetes Samuel Mendiola, RPA 10/19/2020 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.3 Solar urticaria Samuel Mendiola, RPA 10/19/2020 Z87.892 Personal history of anaphylaxis Samuel Mendiola, RPA 10/19/2020 J30.9 Allergic rhinitis, unspecified H Samuel willoughby, RPA 07/15/2020 E78.2 Mixed hyperlipidemia Federico Mendiola, RPA 07/15/2020 R73.01 Impaired fasting glucose Samuel Mendiola, RPA 07/15/2020 E04.9 Nontoxic goiter, unspecified Samuel Ruiz, RPA 07/15/2020 J32.9 Chronic sinusitis, unspecified H Samuel willoughby, RPA 07/15/2020 J30.9 Allergic rhinitis, unspecified H Samuel willoughby, RPA 07/15/2020 M54.30 Sciatica, unspecified side Mega Samuel vasquez, RPA 07/15/2020 K21.00 Gastro-esophageal re flux disease with esophagitis, without bleeding Samuel Mendiola, RPA 07/15/2020 I73.00 Raynaud's syndrome without gangr erika Samuel Mendiola, RPA 07/15/2020 J45.909 Unspecified asthma, uncomplicate d Samuel Mendiola, RPA 07/15/2020 Z86.010 History of polyp of colon Samuel Mendiola, RPA 07/15/2020 K31.7 Gastric polyposis Eddi Mendiola RPA 07/15/2020 R21 Rash and other nonspecific skin eruption Samuel Mendiola, TARAH Plan of Treatment Future Appointment(s):* 04/20/2021 1:00 pm - Samuel Mendiola RPA at [facility] Functional Status Description No Information Available Mental Status Description No Information Available Referrals Refer to Dr Reason for Referral Status Appt Date Neel Arthur M.D. cold urticaria, hx anaphylax is, possible solar urticaria, allergic rhinitis, asthma [facility] [address] [place] [address] [phone] [facility] Pruritic rash. Prefers [place] location. [address] Clayton Miller [address] [place] [address] [phone]
--- OUTSIDE RECORDS SUMMARY | 2021-03-12 22:31 | CCD | Continuity of Care Document ---
Author Author Talia [facility] Organization Unknown Address [address] [place] [address] Phone [phone] Care Team Providers Care Swing Saw Operator Name Role Phone Reagan Mc M.D. AUTM [phone] Samuel Rendon M.D. AUTM [phone] Problems Active Problems Provider Date Asthma without [...] day as needed anxiety 90tabs Shar Lubin, [facility] 12/18/2020 Dexcom G6 Wool Washer Device sig as directed 1units Richy Umana D.O., [facility] 06/2020 Dexcom G6 Sensor Misc as directed 1units Richy Umana D.O., [facility] 12/01/2020 Dexcom G6 Transmitter Misc as directed 1units Richy Umana D.O., [facility] 12/01/2020 Epipen 2-Dru 0.3mg/0 .3ML Solution Auto-Inject inject as directed 2units Richy Umana D.O., [facility] 07/15/2020 Dulera 200-5mcg/Act Aerosol Use 2 Inhalations Twice A Day 39units Richy Umana D.O., [facility] 07/26/2019 Pantoprazole Sodium 40mg Tablets D R Take 1 Tablet Daily 90tabs Richy Umana D.O., [facility] Probiotic Formula 1- 250Billion-mg Capsules Take 1 Capsule Daily 90caps Preston Lubin, [facility] 06/03/2019 Onetouch Verio w/Device Kit as directed to test blood glucose daily 1units Kaden Fabian M.D. 01/25/2019 Onetouch Verio Strips for testing bs once daily 100units Kaden Fabian M.D. 01/26/20 19 Ventolin HFA 108(90Base) mcg/Act A erosol use 2 inhalations every 4 to 6 hours as needed for shortness of breath 3units Richy Umana D.O., [facility] 01/27/2010 Vitamin D 1000Unit Capsules 1 by mouth every day Unknown Cetirizine HCL 10mg Tablets take one tablet daily 90tabs Richy Umana D.O., [facility] Benadryl Allergy Childrens 12.5mg/5ML Liquid 20mL by mouth daily at bedtime for sleep prn Unknown History Medications Citalopram Hydrobromide 10mg Table ts 1 by mouth every day at bedtime 30tabs Richy Umana D.O. , [facility] 12/01/2020 - 12/18/2020 Prednisone 10mg Tablets 2 po tid x 3 days, then 1 po tid x 3 days, then 1 po bid x 3 days, then 1 po qd x 3 days, then 1/2 po qd 42tabs Richy Umana D.O., [facility] - 07/29/2020 Triamcinolone Acetonide 0.1% Cream apply locally to rash twice a day 45gm Richy Umana D.O ., [facility] 07/15/2020 - 12/01/2020 Medications Administered in Office Medication SIG Qnty Indications Ordering Provider Date Injection (SC)/(Im) Injection Samuel Mendiola RPA 03/06/2012 Immunizations CPT Code Status Date Vaccine Lot # [id number] Given 04/07/2016 Tdap Tetanus,Dip htheria Toxoids/Acellular Pertussis 7Yrs Or Older [id number] Given 03/06/2012 Influenza Virus Vac. Split Virus Individuals 3 Years And Above [id number] Refused 04/15/2019 Influenza Virus Vaccine, Quadrivalent, Slit Virus, Im Use 3Y & Up Vital Signs Date Vital Result Comment 12/18/2020 2:46pm BP Systolic 104 mmHg BP Diastolic 80 mmHg Body Temperature 97.3 F Heart Rate 89 /min Respiratory Rate 16 /min Height 68.50 inches 5'8.50" Weight 213.00 lb [place] Body Weight 140 lb BMI (Body Mass Index) 31.9 kg/m2 O2 % BldC Oximetry 99 % 12/01/2020 3:45pm BP Systolic 122 mmHg BP Diastolic 72 mmHg Body Temperature 98.2 F Heart Rate 92 /min Respiratory Rate 18 /min Height 68.50 inches 5'8.50" Weight 214.00 lb [place] Body Weight 140 lb BMI (Body Mass Index) 32.1 kg/m2 O2 % BldC Oximetry 98 % Results Test Acquired Date Facility Test Result H/L Range Note Laboratory test finding 12/01/2020 [facility] Hemoglobin A1c 6.3 % High 4.50-6.20 Laboratory test finding 09/23/2020 [facility] ([facility]) [phone] iSTAT B-hCG < 5.0 Normal 1 Ua W/ Reflex To Culture 09/23/2020 [facility] ([facility]) [phone] Appearance, Urine RFX HAZY Normal Clear Color, Urine RFX YELLOW Normal Yellow PH,Urine RFX 6.0 units Normal 5.0-9.0 Specific [place] Ur Auto RFX 1.012 Normal 1.002-1.035 Protein, [...] /LPF Normal 0-1 CBC With Differential 09/23/2020 [facility] ([facility]) [phone] White Blood Count 14.9 10 High 4.0-10.0 [...] 36.0-66.0 Lymph % 16.2 % Low 24.0-44.0 Cassia % 8.2 % High 2.0-8.0 Eos % 1.9 % Normal 0.0-3.0 Baso % 0.4 % Normal 0.0-1.0 Immature Granulocyte % 0.5 % Normal 0-3.0 Nucleated Red Blood Cell % 0.0 % Normal 0-0 Neutrophils # 10.8 10 High 1.5-8.5 Lymph # 2.4 10 Normal 1.5-5.0 Cassia # 1.2 10 High 0.0-0.8 Eos # 0.3 10 Normal 0.0-0.5 Baso # 0.1 10 Normal 0.0-0.2 Liver Profile 09/23/2020 [facility] [phone] Ast/Sgot 15 U/L Normal 7-37 Alt/SGPT 33 U/L Normal 12-78 Alkaline Phosphatase 56 U/L Normal 45-117 Bilirubin,Total 1.2 mg/dL High 0.2-1.0 Bilirubin,Direct 0.3 mg/dL High 0.0-0.2 Total Protein 7.7 GM/DL Normal 6.4-8.2 Albumin 4.0 GM/DL Normal 3.2-5.2 Albumin/Globulin Ratio 1.1 Low 1.2-2.2 Laboratory test finding 09/23/2020 [facility] ([facility]) [phone] Lipase 62 U/L Low 73-393 Reflex Urine Culture 09/23/2020 [facility] ( [facility]) [phone] Reflex Urine Culture FULL REPORT IN L <SEE NOTE> Norm al 2 Laboratory test finding 09/21/2020 [facility] ([facility]) [phone] HCG Serum Qualitative NEGATIVE Normal Negative Liver Profile 09/21/2020 [facility]) [phone] Ast/Sgot 20 U/L Normal 7-37 Alt/SGPT 39 U/L Normal 12-78 Alkaline Phosphatase 53 U/L Normal 45-117 Bilirubin,Total 0.8 mg/dL Normal 0.2-1.0 Bilirubin,Direct 0.2 mg/dL Normal 0.0-0.2 Total Protein 7.8 GM/DL Normal 6.4-8.2 Albumin 4.0 GM/DL Normal 3.2-5.2 Albumin/Globulin Ratio 1.1 Low 1.2-2.2 Laboratory test finding 09/21/2020 [facility] ([facility]) [phone] Lactic Acid Sepsis Protocol 0.8 mmol/L Normal 0.4- 2.0 3 CBC With Differential 09/21/2020 [facility] ([facility]) [phone] White Blood Count 12.9 10 High 4.0-10.0 [...] 36.0-66.0 Lymph % 20.0 % Low 24.0-44.0 Cassia % 7.0 % Normal 2.0-8.0 Eos % 2.7 % Normal 0.0-3.0 Baso % 0.5 % Normal 0.0-1.0 Immature Granulocyte % 0.5 % Normal 0-3.0 Nucleated Red Blood Cell % 0.0 % Normal 0-0 Neutrophils # 8.9 10 High 1.5-8.5 Lymph # 2.6 10 Normal 1.5-5.0 Cassia # 0.9 10 High 0.0-0.8 Eos # 0.4 10 Normal 0.0-0.5 Baso # 0.1 10 Normal 0.0-0.2 Istat Chem8+ Panel 09/21/2020 [facility]) [phone] iSTAT HCT 43.0 % Normal 38.0-51.0 iSTAT Glucose 107 mg/dL High 70-105 iSTAT Sodium 139 mEq/L Normal 136-145 iSTAT Potassium 3.9 mEq/L Normal 3.5-5.1 iSTAT CA++ 4.8 mg/dL Normal 4.5-5.3 iSTAT Chloride 102 mEq/L Normal 98-109 iSTAT Co2 27.0 MM/L Normal 23.0-27.0 iSTAT BUN 12 mg/dL Normal 8-26 iSTAT Creatinine 0.8 mg/dL Normal 0.6-1.3 Laboratory test finding 09/15/2020 [facility] ([facility]) [phone] iSTAT B-hCG < 5.0 Normal 4 Istat Chem8+ Panel 09/15/2020 [facility]) [phone] iSTAT HCT 43.0 % Normal 38.0-51.0 iSTAT Glucose 132 mg/dL High 70-105 iSTAT Sodium 139 mEq/L Normal 136-145 iSTAT Potassium 4.4 mEq/L Normal 3.5-5.1 iSTAT CA++ 4.7 mg/dL Normal 4.5-5.3 iSTAT Chloride 102 mEq/L Normal 98-109 iSTAT Co2 28.0 MM/L High 23.0-27.0 iSTAT BUN 13 mg/dL Normal 8-26 iSTAT Creatinine 0.8 mg/dL Normal 0.6-1.3 Reflex Urine Culture 09/15/2020 [facility]) [phone] Reflex Urine Culture FULL REPORT IN L <SEE NOTE> Norm al 5 Ua W/ Reflex To Culture 09/15/2020 [facility] ([facility]) [phone] Appearance, Urine RFX HAZY Normal Clear Color, Urine RFX YELLOW Normal Yellow PH,Urine RFX 7.0 units Normal 5.0-9.0 Specific [place] Ur Auto RFX 1.012 Normal 1.002-1.035 Protein, [...] /LPF Normal 0-1 CBC With Differential 09/15/2020 [facility]) [phone] White Blood Count 9.2 10 Normal 4.0-10.0 [...] 36.0-66.0 Lymph % 30.4 % Normal 24.0-44.0 Cassia % 7.7 % Normal 2.0-8.0 Eos % 4.2 % High 0.0-3.0 Baso % 0.8 % Normal 0.0-1.0 Immature Granulocyte % 0.3 % Normal 0-3.0 Nucleated Red Blood Cell % 0.0 % Normal 0-0 Neutrophils # 5.2 10 Normal 1.5-8.5 Lymph # 2.8 10 Normal 1.5-5.0 Cassia # 0.7 10 Normal 0.0-0.8 Eos # 0.4 10 Normal 0.0-0.5 Baso # 0.1 10 Normal 0.0-0.2 Liver Profile 09/15/2020 [facility] ([facility]) [phone] Ast/Sgot 28 U/L Normal 7-37 Alt/SGPT 49 U/L Normal 12-78 Alkaline Phosphatase 58 U/L Normal 45-117 Bilirubin,Total 0.7 mg/dL Normal 0.2-1.0 Bilirubin,Direct 0.2 mg/dL Normal 0.0-0.2 Total Protein 7.9 GM/DL Normal 6.4-8.2 Albumin 4.2 GM/DL Normal 3.2-5.2 Albumin/Globulin Ratio 1.1 Low 1.2-2.2 Laboratory test finding 09/15/2020 [facility] ([facility]) [phone] Lipase 95 U/L Normal 73-393 Laboratory test [...] eGFR 103 # Calc 7 eGFR Non-Afr. French 89 # Calc 8 Lipid Panel 07/15/2020 [...] HCT IS 5% LESS SOURCE FOR DATA: [employer] 1800 OPERATION MANUAL( AUTOMATED BLOOD COUNTS AND [...] 8 CKD-EPI Procedures Date Code Description Status 12/18/2020 40342 Office/Outpatient Established Lo w MDM 20-29 Min Completed 12/01/2020 60458 Office/Outpatient Established Lo w MDM 20-29 Min Completed 12/01/2020 64120 Capillary Blood Collection Finge r, Heel, Ear Stick Completed 10/19/2020 75913 Office/Outpatient Established Mo d MDM 30-39 Min Completed 07/15/2020 54227 Office/Outpatient Established Mo d MDM 30-39 Min Completed Medical Devices Description No Information Available Encounters Type Date Location Provider Dx Diagnosis Office Visit 12/18/2020 2:40p [facility] Samuel Mendiola, RP A R73.03 Prediabetes F41.9 Anxiety disorder, unspecifie d Office Visit 12/01/2020 3:30p [facility] aSmuel Mendiola, RP A F41.9 Anxiety disorder, unspecified R73.03 Prediabetes Office Visit 10/19/2020 1:15p [facility] Samuel Mendiola, RP A L56.3 Solar urticaria Z87.892 Personal history of anaphyla xis J30.9 Allergic rhinitis, unspecifi ed Office Visit 07/15/2020 11:30a [facility] Samuel Mendiola, RP A E78.2 Mixed [...] Mendiola, RPA 12/18/2020 F41.9 Anxiety disorder, unspecified Samuel Monique, RPA 12/01/2020 F41.9 Anxiety disorder, unspecified Hi [...] willoughby, RPA 07/15/2020 M54.30 Sciatica, unspecified side Samuel Deshpande, RPA 07/15/2020 K21.00 Gastro-esophageal re flux disease with esophagitis, without bleeding Samuel Mendiola, RPA 07/15/2020 I73.00 Raynaud's syndrome without gangr erika Samuel Mendiola, RPA 07/15/2020 J45.909 Unspecified asthma, uncomplicate d Samuel Mendiola, RPA 07/15/2020 Z86.010 History of polyp of colon Samuel Mendiola, RPA 07/15/2020 K31.7 Gastric polyposis Eddi Mendiola, RPA 07/15/2020 R21 Rash and other nonspecific skin eruption Samuel Mendiola, TARAH Plan of Treatment Future Appointment(s):* 04/20/2021 1:00 pm - Samuel Mendiola RPA at [facility] Functional Status Description No Information Available Mental Status Description No Information Available Referrals Refer to Dr Reason for Referral Status Appt Date Neel Arthur M.D. cold urticaria, hx anaphylax is, possible solar urticaria, allergic rhinitis, asthma [facility] [address] [place] [address] [phone] [facility] Pruritic rash. Prefers [place] location. [address] Clayton Miller [address] [place] [address] [phone]
--- OUTSIDE RECORDS SUMMARY | 2021-03-12 22:31 | CCD | Continuity of Care Document ---
Author Author [facility] Organization Unknown Address [address] [place] [address] Phone [phone] Care Team Providers Care Accounts Payable Analyst Name Role Phone Kamilla VEGA, Dagmar AUTM [phone] Problems Description No Information Available Social History [...] Exposure Uses > 30 SPF SPF 110 Allergies, Adverse Reactions, Alerts Active Allergies Criticality [...] Information Available Assessments Date Code Description Provider 11/09/2020 L98.8 Other specified disorders of the skin and subcutaneous tissue Fawn Hathaway, F.N.P. 11/09/2020 L98.8 Other specified disorders of the skin and subcutaneous tissue [facility] 10/23/2020 L98.8 Other specified disorders of the skin and subcutaneous tissue Fawn Hathaway, F.N.P. 10/23/2020 L98.8 Other specified disorders of the skin and subcutaneous tissue Zach Stewart.N.P. 10/23/2020 L98.8 Other specified disorders of the skin and subcutaneous tissue [facility] 09/18/2020 L98.8 Other specified disorders of the skin and subcutaneous tissue Zach Stewart.N.P. 09/18/2020 L68.0 Hirsutism Fawn vasquez F.N.P. 09/18/2020 L98.8 Other specified disorders of the skin and subcutaneous tissue [facility] 09/18/2020 L98.8 Other specified disorders of the skin and subcutaneous tissue Cosmetic Consultation Plan of Treatment Future Appointment(s):* 01/22/2021 12:30 pm - Fawn Hathaway F.N.P. at [facility] 09/18/2020 - [facility]* L98.8 Other specified disorders of the skin and subcutaneous tissue Functional Status Description No Information Available Mental Status Description No Information Available Referrals Description No Information Available"
--- OUTSIDE RECORDS SUMMARY | 2021-03-12 22:31 | CCD | Continuity of Care Document ---
Author Organization Unknown Address Unknown Phone Unavailable Problems Description No Information Available Social History Type Date Description Comments Sex Unknown ETOH Use Denies alcohol use Tobacco Use Start: Unknown End: Unknown Patient is a former smoker quit in 1997 Allergies and adverse reactions Active Allergies Criticality Reaction | Severity Comments Date Mucinex Unable to assess criticality 08/28/2017 Purple Dye Unable to assess criticality 09/22/2017 Inactive Allergies NKDA Unable to assess criticality 01/24/2017 Medications Active Medications SIG Qnty Indications Ordering Provide r Date Ventolin HFA 108(90Base) mcg/Act A erosol 2 puffs four times a day as needed Unknown Omeprazole Unknown One Daily Womens Tablets Unknown Vitamin D 1 by mouth a day Unknown 00 Fiber Unknown Probiotic Capsules 1 by mouth every day Unknown Immunizations Description No Information Available Vital Signs Date Vital Result Comment 05/15/2017 10:58am Body Temperature 98.8 F 01/24/2017 2:37pm Body Temperature 99.6 F Height 68 inches 5'8" Weight 217.38 lb BMI (Body Mass Index) 33.0 kg/m2 Results Description No Information Available Procedures Description No Information Available Medical Devices Description No Information Available Encounters Description No Information Available Assessments Description No Information Available Plan of Treatment 02/09/2018 - Kevin Reyes MD* 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
--- OUTSIDE RECORDS SUMMARY | 2021-03-12 22:31 | CCD ---
Author Author [facility] Organization [facility] Address Unknown Phone Unavailable Care Team Providers Care Offset Press Operator Helper Name Role Phone Fatoumata García Unavailable PROBLEMS Type Condition ICD9-CM Code SFR35-XR Code Onset Dates Condition S tatus W/U Status Risk SNOMED Code Notes Problem Burning sensation of vulva N94.89 Active confirmed 056353884 Problem Other chronic pain G89.29 Active confirmed 8 [id number] Problem Female infertility of unspecified origin N97.9 Active confirmed [id number] ALLERGIES Allergen (clinical drug ingredient) Drug/Non Drug Allergy do cumented on EMR Reaction Allergy Type Onset Date Status esomeprazole Nexium([facility] Code:[address]-18) FACIAL SWELLING/W HEEZING Drug Allergy Active guaifenesin Mucinex(ND Code:[address]-58) Hives Drug Allergy Active ENCOUNTERS from 1976 to 2021-01-25 Encounter Location Date Provider Diagnosis [facility] Resident [address] [phone] [place] [id number] Dec, Fatoumata García Somatic dysfunction of cervical region M99.01 ; Somatic dysfunction of rib region M99.08 ; Pain in right shoulder M25.511 ; Other chronic pain G89.29 and Somatic dysfunction of upper extremity M99.07 IMMUNIZATIONS No Information SOCIAL HISTORY Sex Assigned At : Social History Observation Description Sex Assigned At Unknown Education: Question Answer Notes Level of Education: High School Language: Question Answer Notes Languages spoken: Puerto Rican Uatsdin: Question Answer Notes Uatsdin 33 None Alcohol Screening: Question Answer Notes Did you have a drink containing alcohol in the past year? Ye s Points 1 Interpretation Negative How often did you have six or more drinks on one occas ion in the past year? Never (0 points) How many drinks did you have on a typica l day when you were drinking in the past year? 1 or 2 (0 points) How often did you have a drink containing alcohol in t he past year? Monthly or less (1 point) BMI Care Goal Follow-Up Question Answer Notes Above Normal BMI Follow-Up Lifestyle education regarding t REASON FOR REFERRAL No Information VITAL SIGNS Weight 213 lbs Dec, Weight-kg 96.62 kg Dec, Height 69 in Dec, BMI 31.45 kg/m2 Dec, Heart Rate 86 /min Dec, Respiratory Rate 18 /min Dec, Temperature 98.5 degrees Fahrenheit Dec, Oximetry 98% Dec, Blood pressure systolic 124 mm Hg Dec, Blood pressure diastolic 62 mm Hg Dec, MEDICATIONS Medication SIG (Take, Route, Frequency, Duration) Notes Start Da te End Date Status Diflucan 150 MG 1 tablet Orally Once a day for 1 dose(s) 2 Jul, Not-Taking Multivitamins otc 1 Orally once a day Active Fiber Formula - Orally Active Vitamin D 4000 units 1 tablet Orally Once a day for 30 day(s) Active Mirena placed at A Womans Perspective Active Terazol 7 0.4 % 1 application at bedtime Vaginal Once a day for 7 day(s) Nov, Unknown Omeprazole 20 MG 1 capsule Orally Once a day for 30 day(s) Active Dulera 200-5 MCG/ACT as directed Inhalation twice a day Active Vitamin B-12 2500mcg 1 tablet under the tongue an d allow to dissolve Sublingual Once a day for 30 day(s) Unknown Veramyst 27.5 MCG/SPRAY 2 puffs Nasally Once a day for 30 day(s) Unknown Ventolin HFA 108 (90 Base) MCG/ACT 2 puffs Inhalation as needed Active Calcium + D 500-1000-40 MG-UNT-MCG Orally Active ZyrTEC Allergy 10 MG 1 tablet as needed Orally Once a day for 30 day( s) Active PROCEDURES No Information RESULTS No Results REASON FOR VISIT Right shoulder pain MEDICAL (GENERAL) HISTORY Type Description Date Medical History asthma Medical History seasonal allergies Medical History acid reflux Medical History impared fasting glucose Medical History Uticaria Surgical History sinus surgery Surgical History Feritily work up Dr. Cunningham D & C hysteroscopy laparoscopy dye tubal insufflation Surgical History 2015 Surgical History Right knee meniscal repair 05/2017 Goals Section No Information Health Concerns No Information MEDICAL EQUIPMENT No Information MENTAL STATUS No Information FUNCTIONAL STATUS No Information ASSESSMENTS Encounter Date Diagnosis Assessment Notes Treatment Notes Treatm ent Clinical Notes Dec, Somatic dysfunction of cervical region (ICD-10 - M99.01) Patient consented to osteopathic manipulation. Patient was treated with muscle energy and still technique. Patient tolerated procedure well and reports significant reduction of symptoms. Reevaluation of somatic dysfunction revealed reduction of tart findings. Patient tolerated procedure well including less pain improved fluidity of movement. Dec, Somatic dysfunction of rib region (ICD-10 - M99. 08) After review of the patient's history and PE, rheumatologic, infectious, or malignant etiology of the patient's pain is unlikely. The pain is most likely a manifestation of neuromuscular dysfunctions. Secondary to these findings, patient will most likely benefit from OMT. Patient has no contraindications for OMT and will proceed with treatment today. Patient was treated with muscle energy, counterstrain, [place] crunch technique. Patient tolerated procedure well and reports significant reaction of symptoms. Reevaluation of somatic dysfunction revealed reduction of tart findings. Dec, Pain in right shoulder (ICD-10 - M25.511) Pt has chronic right shoulder pain for which she received OMT regularly. Describes pain as sharp, shooting, radiating to right side of neck and base of head. She tells me she has been more physically active recently and this has worsened her right shoulder pain. Dec, Other chronic pain (ICD-10 - G89.29) Patient has chronic pain of right shoulder, right rib, right-sided neck. She tells me she has received OMT multiple times in the past for these complaints with adequate relief following treatment. After review of the patient's history and PE, rheumatologic, infectious, or malignant etiology of the patient's pain is unlikely. The pain is most likely a manifestation of neuromuscular dysfunctions. Secondary to these findings, patient will most likely benefit from OMT. Patient has no contraindications for OMT and will proceed with treatment today. Dec, Somatic dysfunction of upper extremity (ICD-10 - M99.07) SD right shoulder. Patient consented to osteopathic manipulation. Patient was treated with muscle energy. Patient tolerated procedure well and reports significant reduction of symptoms. Reevaluation of somatic dysfunction revealed reduction of tart findings. Patient tolerated procedure well including less pain improved fluidity of movement. PLAN OF TREATMENT Treatment Notes Assessment Notes Clinical Notes Somatic dysfunction of cervical region P atient consented to osteopathic manipulation. Patient was treated with muscle energy and still technique. Patient tolerated procedure well and reports significant reduction of symptoms. Reevaluation of somatic dysfunction revealed reduction of tart findings. Patient tolerated procedure well including less pain improved fluidity of movement. Somatic dysfunction of rib region After review of the patient's history and PE, rheumatologic, infectious, or malignant etiology of the patient's pain is unlikely. The pain is most likely a manifestation of neuromuscular dysfunction s. Secondary to these findings, patient will most likely benefit from OMT. Patient has no contraindications for OMT and will proceed with treatment today. Patient was treated with muscle energy, counterstrain, [place] crunch technique. Patient tolerated procedure well and reports significant reaction of symptoms. Reevaluation of somatic dysfunction revealed reduction of tart findings. Pain in right shoulder Pt has chronic ri ght shoulder pain for which she received OMT regularly. Describes pain as sharp, shooting, radiating to right side of neck and base of head. She tells me she has been more physically active recently and this has worsened her right shoulder pain. Other chronic pain Patient has chronic pain of right shoulder, right rib, right-sided neck. She tells me she has received OMT multiple times in the past for these complaints with adequate relief following treatment. After review of the patient's history and PE, rheumatologic, infectious, or malignant etiology of the patient's pain is unlikely. The pain is most likely a manifestation of neuromuscular dysfunctions. Secondary to these findings, patient will most likely benefit from OMT. Patient has no contraindications for OMT and will proceed with treatment today. Somatic dysfunction of upper extremity S D right shoulder. Patient consented to osteopathic manipulation. Patient was treated with muscle energy. Patient tolerated procedure well and reports significant reduction of symptoms. Reevaluation of somatic dysfunction revealed reduction of tart findings. Patient tolerated procedure well including less pain improved fluidity of movement. Next Appt Details 3 Months Reason:3mo f/u right shoulder/r ib pain Follow Up:3 [id number] f/u right shoulder/rib pain Insurance Providers Payer Name Payer Address Payer Phone Insured Name Patient Relati onship to Insured Coverage Start Date Coverage End Date BCBS [facility] [id number] [facility] [place] [id number] JESSICA GOINS [id number]
--- OUTSIDE RECORDS SUMMARY | 2021-03-12 22:32 | CCD ---
Author Author [facility] Organization [facility] Address Unknown Phone Unavailable Care Team Providers Care Oracle Consultant Name Role Phone Kocan, J Nessa HARDBOARD FACTORY WORKER Unavailable Unavailable Kocan, J Nessa HARDBOARD FACTORY WORKER Unavailable Unavailable Kocan, J Nessa HARDBOARD FACTORY WORKER Unavailable Unavailable Kocan, J Nessa HARDBOARD FACTORY WORKER Unavailable Unavailable Kocan, J Nessa HARDBOARD FACTORY WORKER Unavailable Unavailable Kocan, J Nessa HARDBOARD FACTORY WORKER Unavailable Unavailable Kocan, J Nessa HARDBOARD FACTORY WORKER Unavailable Unavailable Kocan, J Nessa HARDBOARD FACTORY WORKER Unavailable Unavailable Kocan, J Nessa HARDBOARD FACTORY WORKER Unavailable Unavailable Kocan, J Nessa HARDBOARD FACTORY WORKER Unavailable Unavailable Kocan, J Nessa HARDBOARD FACTORY WORKER Unavailable Unavailable Kocan, J Nessa HARDBOARD FACTORY WORKER Unavailable Unavailable Kocan, J Nessa HARDBOARD FACTORY WORKER Unavailable Unavailable Maury, D Samuel PA Unavailable Unavailable Maury, Shar Baker PA Unavailable Unavailable Maury, Shar Baker PA Unavailable Unavailable Maury, Shar Baker PA Unavailable Unavailable Maury, Shar Baker PA Unavailable Unavailable Maury, Shar Baker PA Unavailable Unavailable Maury, Shar Baker PA Unavailable Unavailable Maury, Shar Baker PA Unavailable Unavailable Shar Mendiola PA Unavailable Unavailable Shar Mendiola PA Unavailable Unavailable Shar Mendiola PA Unavailable Unavailable Maury, Shar Baker PA Unavailable Unavailable Maury, Shar Baker PA Unavailable Unavailable Shar Mendiola PA Unavailable Unavailable Shar Mendiola PA Unavailable Unavailable Shar Mendiola PA Unavailable Unavailable Shar Mendiola PA Unavailable Unavailable Shar Mendiola PA Unavailable Unavailable Maury, D Samuel PA Unavailable Unavailable Maury, D Samuel PA Unavailable Unavailable Maury, D Samuel PA Unavailable Unavailable Maury, D Samuel PA Unavailable Unavailable Maury, D Samuel PA Unavailable Unavailable Maury, D Samuel PA Unavailable Unavailable Maury, D Samuel PA Unavailable Unavailable Maury, D Samuel PA Unavailable Unavailable Maury, D Samuel PA Unavailable Unavailable Maury, D Samuel PA Unavailable Unavailable Maury, D Samuel PA Unavailable Unavailable Maury, D Samuel PA Unavailable Unavailable Maury, D Samuel PA Unavailable Unavailable Maury, D Samuel PA Unavailable Unavailable Maury, D Samuel PA Unavailable Unavailable Maury, D Samuel PA Unavailable Unavailable Maury, D Samuel PA Unavailable Unavailable Maury, D Samuel PA Unavailable Unavailable Maury, D Samuel PA Unavailable Unavailable Maury, D Samuel PA Unavailable Unavailable Maury, D Samuel PA Unavailable Unavailable Maury, D Samuel PA Unavailable Unavailable Maury, D Samuel PA Unavailable Unavailable Maury, D Samuel PA Unavailable Unavailable Maury, D Samuel PA Unavailable Unavailable Maury, D Samuel PA Unavailable Unavailable Maury, D Samuel PA Unavailable Unavailable Maury, D Samuel PA Unavailable Unavailable Maury, D Samuel PA Unavailable Unavailable Maury, D Samuel PA Unavailable Unavailable Maury, D Samuel PA Unavailable Unavailable Maury, D Samuel PA Unavailable Unavailable Maury, D Samuel PA Unavailable Unavailable Maury, D Samuel PA Unavailable Unavailable Maury, D Samuel PA Unavailable Unavailable Maury, D Samuel PA Unavailable Unavailable Maury, D Samuel PA Unavailable Unavailable Maury, D Samuel PA Unavailable Unavailable Maury, D Samuel PA Unavailable Unavailable Maury, D Samuel PA Unavailable Unavailable Maury, D Samuel PA Unavailable Unavailable Maury, D Samuel PA Unavailable Unavailable Maury, D Samuel PA Unavailable Unavailable Maury, D Samuel PA Unavailable Unavailable Maury, D Samuel PA Unavailable Unavailable Maury, D Samuel PA Unavailable Unavailable Maury, D Samuel PA Unavailable Unavailable Maury, D Samuel PA Unavailable Unavailable Maury, D Samuel PA Unavailable Unavailable Maury, D Samuel PA Unavailable Unavailable Re-disclosure Warning The records that you are about to access may contain information from federally-assisted alcohol or drug abuse programs. If such information is present, then the following federally mandated warning applies: This information has been disclosed to you from records protected by federal confidentiality rules (42 CFR part 2). The federal rules prohibit you from making any further disclosure of this information unless further disclosure is expressly permitted by the written consent of the person to whom it pertains or as otherwise permitted by 42 CFR part 2. A general authorization for the release of medical or other information is NOT sufficient for this purpose. The Federal rules restrict any use of the information to criminally investigate or prosecute any alcohol or drug abuse patient.The records that you are about to access may contain highly sensitive health information, the redisclosure of which is protected by Article 27-F of the [facility] Public Health law. If you continue you may have access to information: Regarding HIV / AIDS; Provided by facilities licensed or operated by the [facility] Office of Mental Health; or Provided by the [facility] Office for People With Developmental Disabilities. If such information is present, then the following [facility] mandated warning applies: This information has been disclosed to you from confidential records which are protected by state law. State law prohibits you from making any further disclosure of this information without the specific written consent of the person to whom it pertains, or as otherwise permitted by law. Any unauthorized further disclosure in violation of state law may result in a fine or prison sentence or both. A general authorization for the release of medical or other information is NOT sufficient authorization for further disc losure. Allergies and Adverse Reactions Type Description Substance Reaction Status Data Source(s ) Propensity to adverse reactions HYDROCODONE Hydrocodone Facial Sw elling High [facility] High Propensity to adverse reactions GUAIFENESIN ER Guaifenesin Er Hives [facility] Active [facility] High Family History Family Member Name Family Member Gender Family Member Status Date o f Status Description Data Source(s) Unknown Unknown Problem [facility] ([facility] Unknown Male Problem [facility] ([facility]) Unknown Male Problem MED[facility] ([facility]) Encounters Encounter Providers Location Date Indications Data Source(s ) Outpatient ELVIN-ELVIN 03/03/2021 12:00:00 AM EDT [facility] Outpatient Attender: Nessa OCONNOR-ELVIN 2020 12:00:00 AM EDT - 02/24/2021 11:25:40 AM EDT [facility] [address] [facility], [facility] [address] 12/30/2020 12:00:00 AM EDT eCW1 ([facility]) Outpatient Attender: Samuel NEWMAN [facility] 02:40:00 PM EDT [facility] ([facility] Outpatient Attender: Samuel NEWMAN [facility] 06/2020 03:30:00 PM EDT [facility] ([facility] Outpatient Attender: Samuel NEWMAN [facility] 01:15:00 PM EDT [facility] ([facility] Outpatient Attender: Samuel NEWMAN [facility] 11:30:00 AM EDT [facility] ([facility] Outpatient Attender: Samuel NEWMAN [facility] 03/2020 01:15:00 PM EDT [facility] ([facility] Medications Medication Brand Name Start Date Product Form Dose Route Admi nistrative Instructions Pharmacy Instructions Status Indications Reaction Description Data Source(s) Continuous Blood Gluc Sensor (Dexcom G6 Sensor) [facility] [id number] 02/03/2021 12:00:00 AM EDT active [facility] Continuous Blood Gluc Transmit (Dexcom G6 Transmitter) [facility] [id number] 12/21/2020 12:00:00 AM EDT active [facility] Continuous Blood Gluc Fishing Guide (Dexcom G6 Fishing Guide) [facility] [id number] 12/19/2020 12:00:00 AM EDT active [facility] buspirone hydrochloride 5 MG Oral Tablet Buspirone HCL 12/18/2020 12:00:00 AM EDT ORAL active [facility] ([facility] cetirizine hydrochloride 10 MG Oral Tablet cetirizine (ZyrTEC) 10 MG tablet cetirizine (ZyrTEC) 10 MG tablet 12/18/2020 12:00:00 AM EDT active [facility] Dexcom G6 Fishing Guide 12/01/2020 12:00:00 AM EDT active [facility] ([facility] Dexcom G6 Sensor 12/01/2020 12:00:00 AM EDT a ctive [facility] ([facility] Citalopram 10 MG Oral Tablet Citalopram Hydrobromide 12/01/2020 12:00:00 AM EDT ORAL completed [facility] ([facility] Dexcom G6 Transmitter 12/01/2020 12:00:00 AM EDT active [facility] ([facility] Citalopram 10 MG Oral Tablet citalopram (CeleXA) 10 MG tablet citalopram (CeleXA) 10 MG tablet 12/01/2020 12:00:00 AM EDT a borted [facility] POLYETHYLENE GLYCOL 3350 142 MG/ML Oral Solution [Miralax] M iralax 09/22/2020 12:00:00 AM EDT active M EDENT ([facility] Prednisone 10 MG Oral Tablet Prednisone 07/15/2020 12:00:00 AM EDT ORAL completed [facility] ([facility] 0.3 ML Epinephrine 1 MG/ML Auto-Injector [Epipen] Epipen 2-P ak 07/15/2020 12:00:00 AM EDT active M [facility] ([facility] Triamcinolone Acetonide 1 MG/ML Topical Cream Triamcinolone Acetonide 07/15/2020 12:00:00 AM EDT completed [facility] ([facility] benzonatate 100 MG Oral Capsule [Tessalon Perles] Tessalon P erles 02/10/2020 12:00:00 AM EDT ORAL completed [facility] ([facility] Amoxicillin 875 MG Oral Tablet Amoxicillin 02/10/2020 12:00:00 AM EDT ORAL completed [facility] ([facility] Fluconazole 150 MG Oral Tablet [Diflucan] Diflucan 02/10/2020 1 2:00:00 AM EDT ORAL completed [facility] ([facility] pantoprazole 40 MG Delayed Release Oral Tablet pantoprazole (PROTONIX) 40 MG tablet pantoprazole (PROTONIX) 40 MG tablet 11/10/2019 12:00:00 AM EDT 1 {tbl} Oral aborted Take 1 tablet by mouth d aily [facility] Omeprazole 10 MG Delayed Release Oral Ca psule omeprazole (PriLOSEC) 10 MG capsule omeprazole (PriLOSEC) 10 MG capsule aborted [facility] Insurance Providers Payer name Policy type / Coverage type Policy ID Covered libertarian ID Covered libertarian's relationship to nina Policy Nina Plan Information Medicaid [facility] Part B [id number] 2.0.1.366210.3.227.99 .[id number] Self [id number] Medicaid [facility] Part B [id number] 2.0.1.270021.3.227.99 .[id number] Self [id number] Medicaid [facility] Part B [id number] 2.840.1.961054.3.227.99 .991.678411.0 Self [id number] Medicaid [facility] Part B [id number] 2.840.1.233987.3.227.99 .991.201107.0 Self [id number] Medicaid [facility] Part B [id number] 2.840.1.913970.3.227.99 .991.380931.0 Self [id number] Medicaid [facility] Part B [id number] 2.840.1.382995.3.227.99 .991.152799.0 Self [id number] Medicaid [facility] Part B [id number] 2.840.1.159339.3.227.99 .991.649770.0 Self [id number] Medicaid [facility] Part B [id number] 2.840.1.749217.3.227.99 .991.728631.0 Self [id number] [place] [id number] 2.16.840.1.239542.3.227.99 .991.801723.0 Self [id number] [place] [id number] 2.16.840.1.650700.3.227.99 .991.803513.0 Self [id number] [place] [id number] 2.16.840.1.223633.3.227.99 .991.387531.0 Self [id number] [place] [id number] 2.16.840.1.983091.3.227.99 .991.160185.0 Self [id number] [place] [id number] 2.16.840.1.144446.3.227.99 .991.844504.0 Self [id number] [place] [id number] 2.16.840.1.688812.3.227.99 .991.346810.0 Self [id number] [place] [id number] 2.16.840.1.924222.3.227.99 .991.878432.0 Self [id number] [place] [id number] 2.16.840.1.128095.3.227.99 .991.758913.0 Self [id number] [place] [id number] 2.16.840.1.209923.3.227.99 .991.319296.0 Self [id number] [place] [id number] 2.16.840.1.684660.3.227.99 .991.246545.0 Self [id number] Ghi FHP-(DO Not Use) Medigap Part B [id number] 2.16.840.1.039143.3.227.99.991.210412.0 Self [id number] Ghi FHP-(DO Not Use) Medigap Part B [id number] 2.16.840.1.147531.3.227.99.991.996551.0 Self [id number] Ghi FHP-(DO Not Use) Medigap Part B [id number] 2.16.840.1.235351.3.227.99.991.022482.0 Self [id number] Ghi FHP-(DO Not Use) Medigap Part B [id number] 2.16.840.1.034052.3.227.99.991.086836.0 Self [id number] Ghi FHP-(DO Not Use) Medigap Part B [id number] 2.16.840.1.771824.3.227.99.991.764312.0 Self [id number] [facility] Medigap Part B [id number] 2.16.840.1.547783.3.227.99.991.889362.0 Self [id number] Ghi FHP-(DO Not Use) Medigap Part B [id number] 2.16.840.1.218845.3.227.99.991.920393.0 Self [id number] Ghi FHP-(DO Not Use) Medigap Part B [id number] 2.16.840.1.096683.3.227.99.991.651451.0 Self [id number] Ghi FHP-(DO Not Use) Medigap Part B [id number] 2.16.840.1.305091.3.227.99.991.626736.0 Self [id number] Ghi FHP-(DO Not Use) Medigap Part B [id number] 2.16.840.1.665616.3.227.99.991.008714.0 Self [id number] Ghi FHP-(DO Not Use) Medigap Part B [id number] 2.16.840.1.179428.3.227.99.991.678212.0 Self [id number] Ghi FHP-(DO Not Use) Medigap Part B [id number] 2.16.840.1.089444.3.227.99.991.960751.0 Self [id number] Ghi FHP-(DO Not Use) Medigap Part B [id number] 2.16.840.1.891365.3.227.99.991.471379.0 Self [id number] Ghi FHP-(DO Not Use) Medigap Part B [id number] 2.16.840.1.457826.3.227.99.991.619339.0 Self [id number] Ghi FHP-(DO Not Use) Medigap Part B [id number] 2.16.840.1.109050.3.227.99.991.597271.0 Self [id number] Ghi FHP-(DO Not Use) Medigap Part B [id number] 2.16.840.1.348373.3.227.99.991.297712.0 Self [id number] Ghi FHP-(DO Not Use) Medigap Part B [id number] 2.16.840.1.889051.3.227.99.991.779349.0 Self [id number] Ghi FHP-(DO Not Use) Medigap Part B [id number] 2.16.840.1.374915.3.227.99.991.805790.0 Self [id number] Ghi FHP-(DO Not Use) Medigap Part B [id number] 2.16.840.1.115995.3.227.99.991.421799.0 Self [id number] BCBS [facility] 332/834 [id number] HU2 [id number] BCBS [facility] 303/803 [id number] [id number] BLUE CROSS OTHER 1 [id number] HU2 [id number] BS [place] Medigap Part B [id number] 2.0.1.136885.3.227.99.991.570316.0 [id number] BS [place] Medigap Part B [id number] 2.0.1.202436.3.227.99.991.218831.0 [id number] BS [place] Medigap Part B [id number] 2.0.1.778715.3.227.99.991.476355.0 [id number] BS [place] Medigap Part B [id number] 2.0.1.259647.3.227.99.991.863906.0 [id number] BS [place] Medigap Part B [id number] 2.0.1.538073.3.227.99.991.514712.0 [id number] BS [place] Medigap Part B [id number] 2.0.1.077785.3.227.99.991.282408.0 [id number] BS [place] Medigap Part B [id number] 2.0.1.883993.3.227.99.991.021614.0 [id number] BS [place] Medigap Part B [id number] 2.0.1.805541.3.227.99.991.396574.0 [id number] BS [place] Medigap Part B [id number] 2.16.840.1.595839.3.227.99.991.137477.0 [id number] BS [place] Medigap Part B [id number] 2.840.1.271179.3.227.99.991.969766.0 [id number] BS [place] Medigap Part B [id number] 2.840.1.837168.3.227.99.991.055834.0 [id number] BS [place] Medigap Part B [id number] 2.840.1.974077.3.227.99.991.479732.0 [id number] BS [place] Medigap Part B [id number] 2.0.1.922602.3.227.99.991.075581.0 [id number] BS [place] Medigap Part B [id number] 2.840.1.524706.3.227.99.991.583958.0 [id number] BS [place] Medigap Part B [id number] 2.0.1.318587.3.227.99.991.530713.0 [id number] BS [place] Medigap Part B [id number] 2.0.1.218592.3.227.99.991.513722.0 [id number] BS [place] Medigap Part B [id number] 2.0.1.492266.3.227.99.991.452837.0 [id number] BS [place] Medigap Part B [id number] 2.0.1.583412.3.227.99.991.905595.0 [id number] [facility] Health Maintenance Organization (O) [id number] 2.840.1.702561.3.227.99.8646.92050.0 Family Dependent [id number] [employer] BCBS Health Maintenance Organization (O) [id number] 2.0.1.954549.3.227.99.8646.03515.0 Family Dependent [id number] Blue Cross Blue Shield P [id number] SPOUSE [id number] [employer] BCBS Health Maintenance Organization (O) [id number] 34 2...687031.3.227.99.8646.21981.0 Family Dependent [id number] [employer] BCBS [id number] [place] BCBS [id number] Unk T[place] [id number] BCBS [place] PPO 302/307 [id number] HU2 [id number] BCBS [place] PPO 302/307 [id number] HU2 [id number] BS [place] Commercial [id number] 2...502505.3.227.99.991.157478.0 Self [id number] BS [place] Commercial [id number] 2...040920.3.227.99.991.075869.0 Family Dependent [id number] BS [place] Commercial [id number] ...895409.3.227.99.991.564046.0 Family Dependent [id number] BS [place] Commercial [id number] .0..650518.3.227.99.991.141167.0 Family Dependent [id number] BS [place] Commercial [id number] 2...743596.3.227.99.991.870662.0 Family Dependent [id number] BS [place] Commercial [id number] 2...409633.3.227.99.991.366095.0 Family Dependent [id number] BS [place] Commercial [id number] 2.840.1.723898.3.227.99.991.212734.0 Family Dependent [id number] BS [place] Commercial [id number] 2.840.1.601597.3.227.99.991.659574.0 Family Dependent [id number] BS [place] Commercial [id number] 2.840.1.703185.3.227.99.991.869854.0 Family Dependent [id number] BS [place] Commercial [id number] 2.0.1.794648.3.227.99.991.430803.0 Family Dependent [id number] BS [place] Commercial [id number] 2.0.1.656366.3.227.99.991.953199.0 Family Dependent [id number] BS [place] Commercial [id number] 2.0.1.761119.3.227.99.991.073501.0 Family Dependent [id number] BS [place] Commercial [id number] 2.840.1.172486.3.227.99.991.532991.0 Family Dependent [id number] BS [place] Commercial [id number] 2.840.1.027454.3.227.99.991.286611.0 Family Dependent [id number] BS [place] Commercial [id number] 2.840.1.310513.3.227.99.991.438969.0 Family Dependent [id number] BS [place] Commercial [id number] 2.0.1.271645.3.227.99.991.985491.0 Family Dependent [id number] BS [place] Commercial [id number] 2..1.747816.3.227.99.991.138486.0 Family Dependent [id number] BS [place] Commercial [id number] 2..1.924770.3.227.99.991.072161.0 Family Dependent [id number] Blue Cross Blue Shield P [id number] SPOUSE [id number] SELF PAY COVID-19 [id number] Brooke [id number] [place] BC-BS PPO 306 [id number] HU2 [id number] BCBS/[place] Commercial [id number] 2...239177.3.227.99. 1767.67271.0 Family Dependent [id number] ANSI-Commercial [id number] BS [place] Medigap Part B [id number] 2...182267.3.227.99.991.285406.0 Self [id number] BCBS ..1.834050.3.441 [id number] Blue Cross/Bl ue Shield 2..1.541782.3.441 BCBS 2..1.487184.3.441 [id number] Blue Cross/Bl ue Shield 2..1.432134.3.441 Blue Cross Blue Shield P [id number] SELF [id number] BCBS [place] PPO 302/307 [id number] HU2 [id number] MEDICAID [id number] SP [id number] [place] BCBS B [id number] P TNY [id number] BCBS [place] PPO 302/307 [id number] HU2 [id number] BCBS/[employer] Commercial [id number] 2.16.840.1.254947.3.227.99. 1767.68763.0 Family Dependent [id number] SELF PAY ONLY BEST BENEFITS [id number] HU2 [id number] [place] BCBS P [id number] P [id number] [place] BCBS P [id number] P [id number] [place] BC-BS PPO 306 [id number] HU2 [id number] BCBS [place] PPO 302/307 [id number] [id number] Problems, Conditions, and Diagnoses Code Display Name Description Problem Type Effective Dates Data Source(s) E78.5 Hyperlipidemia, unspecified Hyperlipidemia, unspecifie d Diagnosis 02/24/2021 09:31:47 AM EDT [facility] R94.31 Abnormal electrocardiogram [ECG] [EKG] A bnormal electrocardiogram (ECG) (EKG) Diagnosis 02/24/2021 09:31:47 AM EDT [facility] R06.02 Shortness of breath Shortness of breath Diagnosis 1 09:31:47 AM EDT [facility] R06.02 Shortness of breath on exertion Shortness of breath on exertion [id number] 03/04/2021 12:00:00 AM EDT [facility] R07.89 Left chest pressure Left chest pressure [id number] 1 05/04/2020 12:00:00 AM EDT [facility] G89.29 [id number] Other chronic pain Problem 01/20/2021 12:00: 00 AM EDT eCW1 ([facility]) F41.9 Anxiety state Anxiety state Problem 12/01/2020 12:00:00 AM EDT [facility] ([facility] R73.03 Prediabetes Prediabetes Problem 12/01/2020 12:00:00 AM EDT [facility] ([facility] K31.7 Gastric polyposis Gastric polyposis Problem 07/15/2020 12:00:00 AM EDT [facility] ([facility] K31.7 Gastric polyposis Gastric polyposis Problem 02/10/2020 12:00:00 AM EDT [facility] ([facility] Surgeries/Procedures Procedure Description Date Indications Data Source(s) ECG ROUTINE ECG W/LEAST 12 LDS W/I&R <td>POCT AMB EKG</td><td>Routine</td><td>02/24/2021 1:46 PM EDT</td><td> Shortness of breath on exertion Abnormal EKG Palpitations</td><td> </td> 02/24/2021 01:46:00 PM EDT PalpitationsAbnormal EKGShortness of breath on exertio n [facility] Palpitations Abnormal EKG Shortness of breath on exertion OFFICE OUTPATIENT VISIT 15 MINUTES 12/18/2020 12:00:00 AM EDT [facility] ([facility] Capillary Blood Collection Finger, Heel, Ear Stick 12/01/2020 12:00:00 AM EDT [facility] ([facility] ) OFFICE OUTPATIENT VISIT 15 MINUTES 12/01/2020 12:00:00 AM EDT [facility] ([facility] OFFICE OUTPATIENT VISIT 25 MINUTES 10/19/2020 12:00:00 AM EDT [facility] ([facility] OFFICE OUTPATIENT VISIT 25 MINUTES 07/15/2020 12:00:00 AM EDT [facility] ([facility] Results ID Date Data Source [id number] 12/01/2020 04:09:00 PM EDT [facility] Name Value Range Interpretation Code Description Data Aby rce(s) Supporting Document(s) Hemoglobin A1c/Hemoglobin.total in Blood 6.3 % 4.50-6.20 Above high normal [facility] ([facility] ID Date Data Source [id number] 09/23/2020 01:20:00 AM EDT [facility] ([facility] Name Value Range Interpretation Code Description Data Aby rce(s) Supporting Document(s) Laboratory test finding (navigational concept) Laboratory test r esult Normal (applies to non-numeric results) [facility] ([facility] <content>QUANTITATIVE RESULT QU ALITATIVE INTERPRETATION</content>
<content> </content>
<content><5.0 IU/L NEGATIVE</content>
<content>5.0 - 25.0 IU/L INDETERMINATE</content>
<content>>25.0 IU/L POSITIVE</content>
<content></content> ID Date Data Source [id number] 09/23/2020 01:12:00 AM EDT [facility] ([facility] Name Value Range Interpretation Code Description [facility] Supporting Document(s) Reflex Urine Culture Laboratory test result Norm al (applies to non-numeric results) [facility] ([facility] FULL REPORT IN LAB NOTES (eCW and [facility] ). NO GROWTH CLINICAL SIGNIFICANCE 2 OR MORE ORGANISMS ID Date Data Source [id number] 09/23/2020 01:12:00 AM EDT [facility] ([facility] Name Value Range Interpretation Code Description Data [facility] Supporting Document(s) Lipoprotein lipase [Enzymatic activity/volume] in Serum or Plasm a 62 U/L 73-393 Below low normal [facility] ([facility] ID Date Data Source [id number] 09/23/2020 01:12:00 AM EDT [facility] ([facility] Name Value Range Interpretation Code Description Data Aby e(s) Supporting Document(s) Ast/Sgot 15 U/L 7-37 Normal (applies to non-numeric resul ts) [facility] ([facility] Alt/SGPT 33 U/L 12-78 Normal (applies to non-numeric resul ts) [facility] ([facility] Alkaline Phosphatase 56 U/L 45-117 Normal (applies to non-num alexx results) [facility] ([facility] Bilirubin,Total 1.2 mg/dL 0.2-1.0 Above high normal ME DENT ([facility] Bilirubin,Direct 0.3 mg/dL 0.0-0.2 Above high normal M EDENT ([facility] Total Protein 7.7 GM/DL 6.4-8.2 Normal (applies to non-numeric re sults) [facility] ([facility] Albumin 4.0 GM/DL 3.2-5.2 Normal (applies to non-numeric resul ts) [facility] ([facility] Albumin/Globulin Ratio 1.1 1.2-2.2 Below low normal [facility] ([facility] ID Date Data Source [id number] 09/23/2020 01:12:00 AM EDT [facility] ([facility] Name Value Range Interpretation Code Description Data Aby rce(s) Supporting Document(s) White Blood Count 14.9 10 4.0-10.0 Above high normal [facility] ([facility] Red Blood Count 4.32 10 4.00-5.40 Normal (applies to non-numeric results) [facility] ([facility] Hematocrit 39.9 % 36.0-47.0 Normal (applies to non-numeric resul ts) [facility] ([facility] Hemoglobin 13.3 g/dL 12.0-15.5 Normal (applies to non-numeric resul ts) [facility] ([facility] Mean Corpuscular Hemoglobin 30.8 pg 27.0-33.0 Norm al (applies to non-numeric results) [facility] ([facility] Mean Corpuscular Volume 92.4 fl 80.0-96.0 Normal ( applies to non-numeric results) [facility] ([facility] ) Mean Corpuscular HGB Conc 33.3 g/dL 32.0-36.5 Normal (applies to non-numeric results) [facility] ([facility] Red Cell Distribution Width 12.5 % 11.5-14.5 Norm al (applies to non-numeric results) [facility] ([facility] ) Platelet Count, Automated 209 10 150-450 Normal (applies to non-numeric results) [facility] ([facility] ) Neutrophils % 72.8 % 36.0-66.0 Above high normal MEDE NT ([facility] Terry % 8.2 % 2.0-8.0 Above high normal [facility] ([facility] Lymph % 16.2 % 24.0-44.0 Below low normal [facility] ( [facility] Baso % 0.4 % 0.0-1.0 Normal (applies to non-numeric resul ts) [facility] ([facility] Eos % 1.9 % 0.0-3.0 Normal (applies to non-numeric resul ts) [facility] ([facility] Immature Granulocyte % 0.5 % 0-3.0 Normal (applies to non-n umeric results) [facility] ([facility] Nucleated Red Blood Cell % 0.0 % 0-0 Normal (applies to n on-numeric results) [facility] ([facility] Neutrophils # 10.8 10 1.5-8.5 Above high normal MEDE NT ([facility] Lymph # 2.4 10 1.5-5.0 Normal (applies to non-numeric resul ts) [facility] ([facility] Eos # 0.3 10 0.0-0.5 Normal (applies to non-numeric resul ts) [facility] ([facility] Terry # 1.2 10 0.0-0.8 Above high normal [facility] ([facility] Baso # 0.1 10 0.0-0.2 Normal (applies to non-numeric resul ts) [facility] ([facility] ID Date Data Source [id number] 09/23/2020 01:12:00 AM EDT [facility] ([facility] Name Value Range Interpretation Code Description Data Aby rce(s) Supporting Document(s) Appearance, Urine RFX Laboratory test result Nor mal (applies to non-numeric results) [facility] ([facility] ) Color, Urine RFX Laboratory test result Normal ( applies to non-numeric results) [facility] ([facility] ) PH,Urine RFX 6.0 units 5.0-9.0 Normal (applies to non-numeric res ults) [facility] ([facility] Specific Fries Ur Auto RFX 1.012 1.002-1.035 Nor mal (applies to non-numeric results) [facility] ([facility] [place] [facility] ) Protein, Urine Auto RFX Laboratory test result N ormal (applies to non-numeric results) [facility] ([facility] [place] [facility] ) Glucose, Urine (Ua) Auto RFX Laboratory test result Normal (applies to non- numeric results) [facility] ([facility] ) Ketone, Urine Auto RFX Laboratory test result No rmal (applies to non-numeric results) [facility] ([facility] ) Urobilinogen, Urine Auto RFX 0.2 mg/dL 0.0-2.0 Nor mal (applies to non-numeric results) [facility] ([facility] ) Bilirubin, Urine Auto RFX Laboratory test result Normal (applies to non- numeric results) [facility] ([facility] ) Nitrite, Urine Auto RFX Laboratory test result N ormal (applies to non-numeric results) [facility] ([facility] ) Blood, Urine Blood RFX Laboratory test result No rmal (applies to non-numeric results) [facility] ([facility] ) Leukocyte Esterase Ur Auto RFX Laboratory test result Abov e high normal [facility] ([facility] RBC, Urine Auto RFX 4 /HPF 0-3 Above high normal [facility] ([facility] WBC, Urine Auto RFX 7 /HPF 0-3 Above high normal [facility] ([facility] Bacteria, Urine Auto RFX Laboratory test result Above high normal [facility] ([facility] Mucus, Urine RFX Laboratory test result Normal ( applies to non-numeric results) [facility] ([facility] ) Squam Epithelial Cell Ur Aurfx 7 /HPF 0-6 N ormal (applies to non-numeric results) [facility] ([facility] ) Hyaline Cast, Urine Auto RFX 0 /LPF 0-1 Normal (appl ies to non-numeric results) [facility] ID Date Data Source [id number] 09/21/2020 08:59:00 PM EDT [facility] ([facility] Name Value Range Interpretation Code Description Data Aby rce(s) Supporting Document(s) Laboratory test finding (navigational concept) 43.0 % 3 8.0-51.0 Normal (applies to non-numeric results) [facility] ([facility] Laboratory test finding (navigational concept) 139 meq/L 1 36-145 Normal (applies to non-numeric results) [facility] [place] [facility] Laboratory test finding (navigational concept) 107 mg/dL 7 0-105 Above high normal [facility] ([facility] ) Laboratory test finding (navigational concept) 102 meq/L 9 8-109 Normal (applies to non-numeric results) [facility] Laboratory test finding (navigational concept) 4.8 mg/dL 4 .5-5.3 Normal (applies to non-numeric results) [facility] Laboratory test finding (navigational concept) 3.9 meq/L 3 .5-5.1 Normal (applies to non-numeric results) [facility] Laboratory test finding (navigational concept) 27.0 MM/L 2 3.0-27.0 Normal (applies to non-numeric results) [facility] Laboratory test finding (navigational concept) 12 mg/dL 8 -26 Normal (applies to non-numeric results) [facility]) Laboratory test finding (navigational concept) 0.8 mg/dL 0 .6-1.3 Normal (applies to non-numeric results) [facility] ID Date Data Source [id number] 09/21/2020 08:45:00 PM EDT [facility] ([facility] Name Value Range Interpretation Code Description Data Aby rce(s) Supporting Document(s) White Blood Count 12.9 10 4.0-10.0 Above high normal [facility] ([facility] Red Blood Count 4.59 10 4.00-5.40 Normal (applies to non-numeric results) [facility] ([facility] Hemoglobin 14.1 g/dL 12.0-15.5 Normal (applies to non-numeric resul ts) [facility] ([facility] Hematocrit 42.6 % 36.0-47.0 Normal (applies to non-numeric resul ts) [facility] ([facility] Mean Corpuscular Volume 92.8 fl 80.0-96.0 Normal ( applies to non-numeric results) [facility] ([facility] ) Mean Corpuscular Hemoglobin 30.7 pg 27.0-33.0 Norm al (applies to non-numeric results) [facility] ([facility] ) Mean Corpuscular HGB Conc 33.1 g/dL 32.0-36.5 Normal (applies to non-numeric results) [facility] ([facility] ) Red Cell Distribution Width 12.7 % 11.5-14.5 Norm al (applies to non-numeric results) [facility] ([facility] ) Neutrophils % 69.3 % 36.0-66.0 Above high normal [facility] NT ([facility] Platelet Count, Automated 230 10 150-450 Normal (applies to non-numeric results) [facility] ([facility] ) Lymph % 20.0 % 24.0-44.0 Below low normal [facility] ( [facility] Terry % 7.0 % 2.0-8.0 Normal (applies to non-numeric resul ts) [facility] ([facility] Baso % 0.5 % 0.0-1.0 Normal (applies to non-numeric resul ts) [facility] ([facility] Eos % 2.7 % 0.0-3.0 Normal (applies to non-numeric resul ts) [facility] ([facility] Immature Granulocyte % 0.5 % 0-3.0 Normal (applies to non-n umeric results) [facility] ([facility] Nucleated Red Blood Cell % 0.0 % 0-0 Normal (applies to n on-numeric results) [facility] ([facility] Neutrophils # 8.9 10 1.5-8.5 Above high normal [facility] NT ([facility] Terry # 0.9 10 0.0-0.8 Above high normal [facility] ([facility] Lymph # 2.6 10 1.5-5.0 Normal (applies to non-numeric resul ts) [facility] ([facility] Eos # 0.4 10 0.0-0.5 Normal (applies to non-numeric resul ts) [facility] ([facility] Baso # 0.1 10 0.0-0.2 Normal (applies to non-numeric resul ts) [facility] ([facility] ID Date Data Source [id number] 09/21/2020 08:45:00 PM EDT [facility] ([facility] Name Value Range Interpretation Code Description Data Aby rce(s) Supporting Document(s) Lactate [Mass/volume] in Serum or Plasma 0.8 mmol/L 0.4-2.0 Normal (applies to non-numeric results) [facility] ([facility]) Y/N query for Sepsis Lactate Rule: Y ID Date Data Source [id number] 09/21/2020 08:45:00 PM EDT [facility] ([facility] Name Value Range Interpretation Code Description Data Aby rce(s) Supporting Document(s) Alt/SGPT 39 U/L 12-78 Normal (applies to non-numeric resul ts) [facility] ([facility] Ast/Sgot 20 U/L 7-37 Normal (applies to non-numeric resul ts) [facility] ([facility] Alkaline Phosphatase 53 U/L 45-117 Normal (applies to non-num alexx results) [facility] ([facility] Bilirubin,Total 0.8 mg/dL 0.2-1.0 Normal (applies to non-numeric results) [facility] ([facility] Bilirubin,Direct 0.2 mg/dL 0.0-0.2 Normal (applies to non-numeric results) [facility] ([facility] Albumin 4.0 GM/DL 3.2-5.2 Normal (applies to non-numeric resul ts) [facility] ([facility] Total Protein 7.8 GM/DL 6.4-8.2 Normal (applies to non-numeric re sults) [facility] ([facility] Albumin/Globulin Ratio 1.1 1.2-2.2 Below low normal [facility] ([facility] ID Date Data Source [id number] 09/21/2020 08:45:00 PM EDT [facility] Name Value Range Interpretation Code Description Data Aby rce(s) Supporting Document(s) Choriogonadotropin.beta subunit ( test) [Pres ence] in Serum or Plasma Laboratory test result Normal (applies to non-numeric results) [facility] ([facility] ID Date Data Source [id number] 09/15/2020 12:36:00 PM EDT [facility] Name Value Range Interpretation Code Description Data Aby rce(s) Supporting Document(s) Laboratory test finding (navigational concept) Laboratory test r esult Normal (applies to non-numeric results) [facility] ([facility] <content>QUANTITATIVE RESULT QU ALITATIVE INTERPRETATION</content>
<content> </content>
<content><5.0 IU/L NEGATIVE</content>
<content>5.0 - 25.0 IU/L INDETERMINATE</content>
<content>>25.0 IU/L POSITIVE</content>
<content></content> ID Date Data Source [id number] 09/15/2020 12:34:00 PM EDT [facility] ([facility] Name Value Range Interpretation Code Description Data Aby rce(s) Supporting Document(s) Laboratory test finding (navigational concept) 43.0 % 3 8.0-51.0 Normal (applies to non-numeric results) [facility] ([facility] Laboratory test finding (navigational concept) 132 mg/dL 7 0-105 Above high normal [facility] ([facility] ) Laboratory test finding (navigational concept) 139 meq/L 1 36-145 Normal (applies to non-numeric results) [facility] ([facility] Laboratory test finding (navigational concept) 4.4 meq/L 3 .5-5.1 Normal (applies to non-numeric results) [facility] ([facility] Laboratory test finding (navigational concept) 102 meq/L 9 8-109 Normal (applies to non-numeric results) [facility] ([facility] Laboratory test finding (navigational concept) 4.7 mg/dL 4 .5-5.3 Normal (applies to non-numeric results) [facility] ([facility] Laboratory test finding (navigational concept) 13 mg/dL 8 -26 Normal (applies to non-numeric results) [facility] ([facility] Laboratory test finding (navigational concept) 28.0 MM/L 2 3.0-27.0 Above high normal [facility] ([facility] ) Laboratory test finding (navigational concept) 0.8 mg/dL 0 .6-1.3 Normal (applies to non-numeric results) [facility] ([facility] ID Date Data Source [id number] 09/15/2020 12:25:00 PM EDT [facility] ([facility] Name Value Range Interpretation Code Description Data Aby rce(s) Supporting Document(s) Lipoprotein lipase [Enzymatic activity/volume] in Serum or Plasm a 95 U/L 73-393 Normal (applies to non-numeric results) [facility] ([facility] ID Date Data Source [id number] 09/15/2020 12:25:00 PM EDT [facility] ([facility] Name Value Range Interpretation Code Description Data Aby rce(s) Supporting Document(s) Ast/Sgot 28 U/L 7-37 Normal (applies to non-numeric resul ts) [facility] ([facility] Alt/SGPT 49 U/L 12-78 Normal (applies to non-numeric resul ts) [facility] ([facility] Alkaline Phosphatase 58 U/L 45-117 Normal (applies to non-num alexx results) [facility] ([facility] Bilirubin,Total 0.7 mg/dL 0.2-1.0 Normal (applies to non-numeric results) [facility] ([facility] Bilirubin,Direct 0.2 mg/dL 0.0-0.2 Normal (applies to non-numeric results) [facility] ([facility] Total Protein 7.9 GM/DL 6.4-8.2 Normal (applies to non-numeric re sults) [facility] ([facility] Albumin 4.2 GM/DL 3.2-5.2 Normal (applies to non-numeric resul ts) [facility] ([facility] Albumin/Globulin Ratio 1.1 1.2-2.2 Below low normal [facility] ([facility] ID Date Data Source [id number] 09/15/2020 12:25:00 PM EDT [facility] ([facility] Name Value Range Interpretation Code Description Data Aby rce(s) Supporting Document(s) White Blood Count 9.2 10 4.0-10.0 Normal (applies to non-numeri c results) [facility] ([facility] Red Blood Count 4.68 10 4.00-5.40 Normal (applies to non-numeric results) [facility] ([facility] Hemoglobin 14.7 g/dL 12.0-15.5 Normal (applies to non-numeric resul ts) [facility] ([facility] Hematocrit 43.3 % 36.0-47.0 Normal (applies to non-numeric resul ts) [facility] ([facility] Mean Corpuscular Volume 92.5 fl 80.0-96.0 Normal ( applies to non-numeric results) [facility] ([facility] ) Mean Corpuscular Hemoglobin 31.4 pg 27.0-33.0 Norm al (applies to non-numeric results) [facility] ([facility] ) Mean Corpuscular HGB Conc 33.9 g/dL 32.0-36.5 Normal (applies to non-numeric results) [facility] ([facility] ) Red Cell Distribution Width 13.1 % 11.5-14.5 Norm al (applies to non-numeric results) [facility] ([facility] ) Platelet Count, Automated 255 10 150-450 Normal (applies to non-numeric results) [facility] ([facility] Neutrophils % 56.6 % 36.0-66.0 Normal (applies to non-numeric re sults) [facility] ([facility] Lymph % 30.4 % 24.0-44.0 Normal (applies to non-numeric resul ts) [facility] ([facility] Terry % 7.7 % 2.0-8.0 Normal (applies to non-numeric resul ts) [facility] ([facility] Eos % 4.2 % 0.0-3.0 Above high normal [facility] ([facility] Baso % 0.8 % 0.0-1.0 Normal (applies to non-numeric resul ts) [facility] ([facility] Immature Granulocyte % 0.3 % 0-3.0 Normal (applies to non-n umeric results) [facility] ([facility] Nucleated Red Blood Cell % 0.0 % 0-0 Normal (applies to n on-numeric results) [facility] ([facility] Lymph # 2.8 10 1.5-5.0 Normal (applies to non-numeric resul ts) [facility] ([facility] Neutrophils # 5.2 10 1.5-8.5 Normal (applies to non-numeric re sults) [facility] ([facility] Eos # 0.4 10 0.0-0.5 Normal (applies to non-numeric resul ts) [facility] ([facility] Terry # 0.7 10 0.0-0.8 Normal (applies to non-numeric resul ts) [facility] ([facility] Baso # 0.1 10 0.0-0.2 Normal (applies to non-numeric resul ts) [facility] ([facility] ID Date Data Source [id number] 09/15/2020 12:25:00 PM EDT [facility] Name Value Range Interpretation Code Description Data Aby rce(s) Supporting Document(s) Color, Urine RFX Laboratory test result Normal ( applies to non-numeric results) [facility] ([facility] ) Appearance, Urine RFX Laboratory test result Nor mal (applies to non-numeric results) [facility] ([facility] ) Specific Fries Ur Auto RFX 1.012 1.002-1.035 Nor mal (applies to non-numeric results) [facility] ([facility] ) PH,Urine RFX 7.0 units 5.0-9.0 Normal (applies to non-numeric res ults) [facility] ([facility] Glucose, Urine (Ua) Auto RFX Laboratory test result Normal (applies to non- numeric results) [facility] ([facility] ) Protein, Urine Auto RFX Laboratory test result N ormal (applies to non-numeric results) [facility] ([facility] ) Ketone, Urine Auto RFX Laboratory test result No rmal (applies to non-numeric results) [facility] ([facility] ) Urobilinogen, Urine Auto RFX 0.2 mg/dL 0.0-2.0 Nor mal (applies to non-numeric results) [facility] ([facility] ) Nitrite, Urine Auto RFX Laboratory test result N ormal (applies to non-numeric results) [facility] ([facility] ) Bilirubin, Urine Auto RFX Laboratory test result Normal (applies to non- numeric results) [facility] ([facility] ) Blood, Urine Blood RFX Laboratory test result No rmal (applies to non-numeric results) [facility] ([facility] ) Leukocyte Esterase Ur Auto RFX Laboratory test result Abov e high normal [facility] ([facility] RBC, Urine Auto RFX 0 /HPF 0-3 Normal (applies to non-nume jorge luis results) [facility] ([facility] WBC, Urine Auto RFX 2 /HPF 0-3 Normal (applies to non-nume jorge luis results) [facility] ([facility] Bacteria, Urine Auto RFX Laboratory test result Normal (applies to non-numeric results) [facility] ([facility] ) Squam Epithelial Cell Ur Aurfx 2 /HPF 0-6 N ormal (applies to non-numeric results) [facility] ([facility] ) Hyaline Cast, Urine Auto RFX 0 /LPF 0-1 Normal (appl ies to non-numeric results) [facility] ([facility] ID Date Data Source [id number] 09/15/2020 12:25:00 PM EDT [facility] ([facility] Name Value Range Interpretation Code Description Data Aby rce(s) Supporting Document(s) Reflex Urine Culture Laboratory test result Norm al (applies to non-numeric results) [facility] ([facility] FULL REPORT IN LAB NOTES ([facility] and [facility] ). NO GROWTH CLINICAL SIGNIFICANCE 2 OR MORE ORGANISMS ID Date Data Source [id number] 07/15/2020 01:03:00 PM EDT [facility] ([facility] Name Value Range Interpretation Code Description Data Aby rce(s) Supporting Document(s) Erythrocyte sedimentation rate by Westergren method 4 mm/hr 0-19 [facility] ([facility] ID Date Data Source [id number] 07/15/2020 01:00:00 PM EDT [facility] Name Value Range Interpretation Code Description Data Aby rce(s) Supporting Document(s) Chol 167 mg/dL 0-200 [facility] NORMAL RANGES Age WBC RBC HGB HCT [...] HCT IS 5% LESS SOURCE FOR DATA: [employer] 1800 OPERATION MANUAL( AUTOMATED BLOOD COUNTS AND [...] ADOLESCENTS REPRESENTS INDIVIDUALA AGED 2-19 YEARS EXCLUSIVE. Trig 177 mg/dL 40-200 [facility] NORMAL RANGES Age WBC RBC HGB HCT [...] HCT IS 5% LESS SOURCE FOR DATA: [employer] 1800 OPERATION MANUAL( AUTOMATED BLOOD COUNTS AND [...] ADOLESCENTS REPRESENTS INDIVIDUALA AGED 2-19 YEARS EXCLUSIVE. Cholesterol in HDL [Mass/volume] in Serum or Plasma 34 mg/dL 45-65 Below low normal [facility] ([facility] NORMAL RANGES Age WBC RBC HGB HCT [...] HCT IS 5% LESS SOURCE FOR DATA: Metrilus 1800 OPERATION MANUAL( AUTOMATED BLOOD COUNTS AND [...] DESIRABLE: <130 MG/DL <110 MG/DL BORDERLINE-HIGH RISK: 130- 159 MG/DL 110-129 MG/DL HIGH RISK: >160 MG/DL >130 MG/DL *CHILDREN AND ADOLESCENTS REPRESENTS INDIVIDUALA AGED 2-19 YEARS EXCLUSIVE. LDL_C 98 Calc 75-129 [facility] NORMAL RANGES Age WBC RBC HGB HCT [...] HCT IS 5% LESS SOURCE FOR DATA: Metrilus 1800 OPERATION MANUAL( AUTOMATED BLOOD COUNTS AND [...] DESIRABLE: <130 MG/DL <110 MG/DL BORDERLINE-HIGH RISK: 130- 159 MG/DL 110-129 MG/DL HIGH RISK: >160 MG/DL >130 MG/DL *CHILDREN AND ADOLESCENTS REPRESENTS INDIVIDUALA AGED 2-19 YEARS EXCLUSIVE. Cho/HDL Ratio 4.9 CALC [facility] ([facility] NORMAL RANGES Age WBC RBC HGB HCT [...] HCT IS 5% LESS SOURCE FOR DATA: Metrilus 1800 OPERATION MANUAL( AUTOMATED BLOOD COUNTS AND [...] DESIRABLE: <130 MG/DL <110 MG/DL BORDERLINE-HIGH RISK: 130- 159 MG/DL 110-129 MG/DL HIGH RISK: >160 MG/DL >130 MG/DL *CHILDREN AND ADOLESCENTS REPRESENTS INDIVIDUALA AGED 2-19 YEARS EXCLUSIVE. ID Date Data Source [id number] 07/15/2020 01:00:00 PM EDT [facility] ([facility] Name Value Range Interpretation Code Description Data Aby rce(s) Supporting Document(s) BUN 12 mg/dL 8-23 [facility] ([facility] NORMAL RANGES Age WBC RBC HGB HCT [...] HCT IS 5% LESS SOURCE FOR DATA: Metrilus 1800 OPERATION MANUAL( AUTOMATED BLOOD COUNTS AND [...] DESIRABLE: <130 MG/DL <110 MG/DL BORDERLINE-HIGH RISK: 130- 159 MG/DL 110-129 MG/DL HIGH RISK: >160 MG/DL >130 MG/DL *CHILDREN AND ADOLESCENTS REPRESENTS INDIVIDUALA AGED 2-19 YEARS EXCLUSIVE. Glu 112 mg/dL 70-110 Above high normal [facility] ([facility] NORMAL RANGES Age WBC RBC HGB HCT [...] HCT IS 5% LESS SOURCE FOR DATA: [employer] DYN 1800 OPERATION MANUAL( AUTOMATED BLOOD COUNTS AND [...] DESIRABLE: <130 MG/DL <110 MG/DL BORDERLINE-HIGH RISK: 130- 159 MG/DL 110-129 MG/DL HIGH RISK: >160 MG/DL >130 MG/DL *CHILDREN AND ADOLESCENTS REPRESENTS INDIVIDUALA AGED 2-19 YEARS EXCLUSIVE. BUN/Creatinine Ratio 15.2 CALC [facility] ([facility] NORMAL RANGES Age WBC RBC HGB HCT [...] HCT IS 5% LESS SOURCE FOR DATA: Metrilus 1800 OPERATION MANUAL( AUTOMATED BLOOD COUNTS AND [...] DESIRABLE: <130 MG/DL <110 MG/DL BORDERLINE-HIGH RISK: 130- 159 MG/DL 110-129 MG/DL HIGH RISK: >160 MG/DL >130 MG/DL *CHILDREN AND ADOLESCENTS REPRESENTS INDIVIDUALA AGED 2-19 YEARS EXCLUSIVE. Creat 0.8 mg/dL 0.5-1.0 [facility] ([facility] NORMAL RANGES Age WBC RBC HGB HCT [...] HCT IS 5% LESS SOURCE FOR DATA: Metrilus 1800 OPERATION MANUAL( AUTOMATED BLOOD COUNTS AND [...] DESIRABLE: <130 MG/DL <110 MG/DL BORDERLINE-HIGH RISK: 130- 159 MG/DL 110-129 MG/DL HIGH RISK: >160 MG/DL >130 MG/DL *CHILDREN AND ADOLESCENTS REPRESENTS INDIVIDUALA AGED 2-19 YEARS EXCLUSIVE. Na 136 mmol/L 136-145 [facility] NORMAL RANGES Age WBC RBC HGB HCT [...] HCT IS 5% LESS SOURCE FOR DATA: [employer] DYN 1800 OPERATION MANUAL( AUTOMATED BLOOD COUNTS AND [...] DESIRABLE: <130 MG/DL <110 MG/DL BORDERLINE-HIGH RISK: 130- 159 MG/DL 110-129 MG/DL HIGH RISK: >160 MG/DL >130 MG/DL *CHILDREN AND ADOLESCENTS REPRESENTS INDIVIDUALA AGED 2-19 YEARS EXCLUSIVE. K 4.3 mmol/L 3.5-5.1 [facility] NORMAL RANGES Age WBC RBC HGB HCT [...] HCT IS 5% LESS SOURCE FOR DATA: Metrilus 1800 OPERATION MANUAL( AUTOMATED BLOOD COUNTS AND [...] DESIRABLE: <130 MG/DL <110 MG/DL BORDERLINE-HIGH RISK: 130- 159 MG/DL 110-129 MG/DL HIGH RISK: >160 MG/DL >130 MG/DL *CHILDREN AND ADOLESCENTS REPRESENTS INDIVIDUALA AGED 2-19 YEARS EXCLUSIVE. CL 102.0 mmol/L 98.0-107.0 [facility] NORMAL RANGES Age WBC RBC HGB HCT [...] HCT IS 5% LESS SOURCE FOR DATA: Metrilus 1800 OPERATION MANUAL( AUTOMATED BLOOD COUNTS AND [...] DESIRABLE: <130 MG/DL <110 MG/DL BORDERLINE-HIGH RISK: 130- 159 MG/DL 110-129 MG/DL HIGH RISK: >160 MG/DL >130 MG/DL *CHILDREN AND ADOLESCENTS REPRESENTS INDIVIDUALA AGED 2-19 YEARS EXCLUSIVE. Co2 22.7 mmol/L 22.0-29.0 [facility] NORMAL RANGES Age WBC RBC HGB HCT [...] HCT IS 5% LESS SOURCE FOR DATA: Metrilus 1800 OPERATION MANUAL( AUTOMATED BLOOD COUNTS AND [...] DESIRABLE: <130 MG/DL <110 MG/DL BORDERLINE-HIGH RISK: 130- 159 MG/DL 110-129 MG/DL HIGH RISK: >160 MG/DL >130 MG/DL *CHILDREN AND ADOLESCENTS REPRESENTS INDIVIDUALA AGED 2-19 YEARS EXCLUSIVE. Alb 4.5 g/dL 3.4-4.8 [facility] NORMAL RANGES Age WBC RBC HGB HCT [...] HCT IS 5% LESS SOURCE FOR DATA: Metrilus 1800 OPERATION MANUAL( AUTOMATED BLOOD COUNTS AND [...] DESIRABLE: <130 MG/DL <110 MG/DL BORDERLINE-HIGH RISK: 130- 159 MG/DL 110-129 MG/DL HIGH RISK: >160 MG/DL >130 MG/DL *CHILDREN AND ADOLESCENTS REPRESENTS INDIVIDUALA AGED 2-19 YEARS EXCLUSIVE. TP 7.5 g/dL 6.6-8.7 [facility] NORMAL RANGES Age WBC RBC HGB HCT [...] HCT IS 5% LESS SOURCE FOR DATA: Metrilus 1800 OPERATION MANUAL( AUTOMATED BLOOD COUNTS AND [...] DESIRABLE: <130 MG/DL <110 MG/DL BORDERLINE-HIGH RISK: 130- 159 MG/DL 110-129 MG/DL HIGH RISK: >160 MG/DL >130 MG/DL *CHILDREN AND ADOLESCENTS REPRESENTS INDIVIDUALA AGED 2-19 YEARS EXCLUSIVE. CA 9.7 mg/dL 8.6-10.2 [facility] NORMAL RANGES Age WBC RBC HGB HCT [...] HCT IS 5% LESS SOURCE FOR DATA: Metrilus 1800 OPERATION MANUAL( AUTOMATED BLOOD COUNTS AND [...] DESIRABLE: <130 MG/DL <110 MG/DL BORDERLINE-HIGH RISK: 130- 159 MG/DL 110-129 MG/DL HIGH RISK: >160 MG/DL >130 MG/DL *CHILDREN AND ADOLESCENTS REPRESENTS INDIVIDUALA AGED 2-19 YEARS EXCLUSIVE. A/G Ratio 1.5 CALC [facility] ([facility] NORMAL RANGES Age WBC RBC HGB HCT [...] HCT IS 5% LESS SOURCE FOR DATA: Metrilus 1800 OPERATION MANUAL( AUTOMATED BLOOD COUNTS AND [...] DESIRABLE: <130 MG/DL <110 MG/DL BORDERLINE-HIGH RISK: 130- 159 MG/DL 110-129 MG/DL HIGH RISK: >160 MG/DL >130 MG/DL *CHILDREN AND ADOLESCENTS REPRESENTS INDIVIDUALA AGED 2-19 YEARS EXCLUSIVE. Alp 55.1 U/L 35-129 [facility] NORMAL RANGES Age WBC RBC HGB HCT [...] HCT IS 5% LESS SOURCE FOR DATA: Metrilus 1800 OPERATION MANUAL( AUTOMATED BLOOD COUNTS AND [...] DESIRABLE: <130 MG/DL <110 MG/DL BORDERLINE-HIGH RISK: 130- 159 MG/DL 110-129 MG/DL HIGH RISK: >160 MG/DL >130 MG/DL *CHILDREN AND ADOLESCENTS REPRESENTS INDIVIDUALA AGED 2-19 YEARS EXCLUSIVE. Globulin 3.1 CALC [facility] NORMAL RANGES Age WBC RBC HGB HCT [...] HCT IS 5% LESS SOURCE FOR DATA: Metrilus 1800 OPERATION MANUAL( AUTOMATED BLOOD COUNTS AND [...] DESIRABLE: <130 MG/DL <110 MG/DL BORDERLINE-HIGH RISK: 130- 159 MG/DL 110-129 MG/DL HIGH RISK: >160 MG/DL >130 MG/DL *CHILDREN AND ADOLESCENTS REPRESENTS INDIVIDUALA AGED 2-19 YEARS EXCLUSIVE. Alt (SGPT) 25 U/L 0-41 [facility] ([facility] NORMAL RANGES Age WBC RBC HGB HCT [...] HCT IS 5% LESS SOURCE FOR DATA: Metrilus 1800 OPERATION MANUAL( AUTOMATED BLOOD COUNTS AND [...] DESIRABLE: <130 MG/DL <110 MG/DL BORDERLINE-HIGH RISK: 130- 159 MG/DL 110-129 MG/DL HIGH RISK: >160 MG/DL >130 MG/DL *CHILDREN AND ADOLESCENTS REPRESENTS INDIVIDUALA AGED 2-19 YEARS EXCLUSIVE. Ast (Sgot) 23 U/L 0-40 [facility] NORMAL RANGES Age WBC RBC HGB HCT [...] HCT IS 5% LESS SOURCE FOR DATA: Metrilus 1800 OPERATION MANUAL( AUTOMATED BLOOD COUNTS AND [...] DESIRABLE: <130 MG/DL <110 MG/DL BORDERLINE-HIGH RISK: 130- 159 MG/DL 110-129 MG/DL HIGH RISK: >160 MG/DL >130 MG/DL *CHILDREN AND ADOLESCENTS REPRESENTS INDIVIDUALA AGED 2-19 YEARS EXCLUSIVE. Tbili 0.61 mg/dL 0.0-1.2 [facility] ([facility] NORMAL RANGES Age WBC RBC HGB HCT [...] HCT IS 5% LESS SOURCE FOR DATA: Metrilus 1800 OPERATION MANUAL( AUTOMATED BLOOD COUNTS AND [...] DESIRABLE: <130 MG/DL <110 MG/DL BORDERLINE-HIGH RISK: 130- 159 MG/DL 110-129 MG/DL HIGH RISK: >160 MG/DL >130 MG/DL *CHILDREN AND ADOLESCENTS REPRESENTS INDIVIDUALA AGED 2-19 YEARS EXCLUSIVE. Osmolality-Calculated 271.6 CALC [facility] ([facility] NORMAL RANGES Age WBC RBC HGB HCT [...] HCT IS 5% LESS SOURCE FOR DATA: Metrilus 1800 OPERATION MANUAL( AUTOMATED BLOOD COUNTS AND [...] DESIRABLE: <130 MG/DL <110 MG/DL BORDERLINE-HIGH RISK: 130- 159 MG/DL 110-129 MG/DL HIGH RISK: >160 MG/DL >130 MG/DL *CHILDREN AND ADOLESCENTS REPRESENTS INDIVIDUALA AGED 2-19 YEARS EXCLUSIVE. Anion Gap 15 mmol/L [facility] ([facility] NORMAL RANGES Age WBC RBC HGB HCT [...] HCT IS 5% LESS SOURCE FOR DATA: HAYSE Peerio 1800 OPERATION MANUAL( AUTOMATED BLOOD COUNTS AND [...] DESIRABLE: <130 MG/DL <110 MG/DL BORDERLINE-HIGH RISK: 130- 159 MG/DL 110-129 MG/DL HIGH RISK: >160 MG/DL >130 MG/DL *CHILDREN AND ADOLESCENTS REPRESENTS INDIVIDUALA AGED 2-19 YEARS EXCLUSIVE. eGFR 103 # [facility] ( [facility] NORMAL RANGES Age WBC RBC HGB HCT [...] HCT IS 5% LESS SOURCE FOR DATA: Metrilus 1800 OPERATION MANUAL( AUTOMATED BLOOD COUNTS AND [...] DESIRABLE: <130 MG/DL <110 MG/DL BORDERLINE-HIGH RISK: 130- 159 MG/DL 110-129 MG/DL HIGH RISK: >160 MG/DL >130 MG/DL *CHILDREN AND ADOLESCENTS REPRESENTS INDIVIDUALA AGED 2-19 YEARS EXCLUSIVE. eGFR Non-Afr. Slovak 89 # [facility] ([facility] NORMAL RANGES Age WBC RBC HGB HCT [...] HCT IS 5% LESS SOURCE FOR DATA: Metrilus 1800 OPERATION MANUAL( AUTOMATED BLOOD COUNTS AND [...] DESIRABLE: <130 MG/DL <110 MG/DL BORDERLINE-HIGH RISK: 130- 159 MG/DL 110-129 MG/DL HIGH RISK: >160 MG/DL >130 MG/DL *CHILDREN AND ADOLESCENTS REPRESENTS INDIVIDUALA AGED 2-19 YEARS EXCLUSIVE. ID Date Data Source [id number] 07/15/2020 01:00:00 PM EDT [facility] ([facility] Name Value Range Interpretation Code Description Data Aby rce(s) Supporting Document(s) WBC 7.0 10E3/uL 4.1-10.9 [facility] ([facility] NORMAL RANGES Age WBC RBC HGB HCT [...] HCT IS 5% LESS SOURCE FOR DATA: Stayh[employer] DYN 1800 OPERATION MANUAL( AUTOMATED BLOOD COUNTS AND [...] DESIRABLE: <130 MG/DL <110 MG/DL BORDERLINE-HIGH RISK: 130- 159 MG/DL 110-129 MG/DL HIGH RISK: >160 MG/DL >130 MG/DL *CHILDREN AND ADOLESCENTS REPRESENTS INDIVIDUALA AGED 2-19 YEARS EXCLUSIVE. RBC 4.63 10E6/uL 4.20-6.30 [facility] NORMAL RANGES Age WBC RBC HGB HCT [...] HCT IS 5% LESS SOURCE FOR DATA: Metrilus 1800 OPERATION MANUAL( AUTOMATED BLOOD COUNTS AND [...] DESIRABLE: <130 MG/DL <110 MG/DL BORDERLINE-HIGH RISK: 130- 159 MG/DL 110-129 MG/DL HIGH RISK: >160 MG/DL >130 MG/DL *CHILDREN AND ADOLESCENTS REPRESENTS INDIVIDUALA AGED 2-19 YEARS EXCLUSIVE. HGB 14.1 g/dL 12.0-18.0 [facility] NORMAL RANGES Age WBC RBC HGB HCT [...] HCT IS 5% LESS SOURCE FOR DATA: Metrilus 1800 OPERATION MANUAL( AUTOMATED BLOOD COUNTS AND [...] DESIRABLE: <130 MG/DL <110 MG/DL BORDERLINE-HIGH RISK: 130- 159 MG/DL 110-129 MG/DL HIGH RISK: >160 MG/DL >130 MG/DL *CHILDREN AND ADOLESCENTS REPRESENTS INDIVIDUALA AGED 2-19 YEARS EXCLUSIVE. MCV 89.2 fL 80.0-97.0 [facility] ([facility] NORMAL RANGES Age WBC RBC HGB HCT [...] HCT IS 5% LESS SOURCE FOR DATA: Stayh[employer] DYN 1800 OPERATION MANUAL( AUTOMATED BLOOD COUNTS AND [...] DESIRABLE: <130 MG/DL <110 MG/DL BORDERLINE-HIGH RISK: 130- 159 MG/DL 110-129 MG/DL HIGH RISK: >160 MG/DL >130 MG/DL *CHILDREN AND ADOLESCENTS REPRESENTS INDIVIDUALA AGED 2-19 YEARS EXCLUSIVE. HCT 41.3 % 37.0-51.0 [facility] NORMAL RANGES Age WBC RBC HGB HCT [...] HCT IS 5% LESS SOURCE FOR DATA: Metrilus 1800 OPERATION MANUAL( AUTOMATED BLOOD COUNTS AND [...] DESIRABLE: <130 MG/DL <110 MG/DL BORDERLINE-HIGH RISK: 130- 159 MG/DL 110-129 MG/DL HIGH RISK: >160 MG/DL >130 MG/DL *CHILDREN AND ADOLESCENTS REPRESENTS INDIVIDUALA AGED 2-19 YEARS EXCLUSIVE. MCH 30.5 pg 26.0-32.0 [facility] ([facility] NORMAL RANGES Age WBC RBC HGB HCT [...] HCT IS 5% LESS SOURCE FOR DATA: Metrilus 1800 OPERATION MANUAL( AUTOMATED BLOOD COUNTS AND [...] DESIRABLE: <130 MG/DL <110 MG/DL BORDERLINE-HIGH RISK: 130- 159 MG/DL 110-129 MG/DL HIGH RISK: >160 MG/DL >130 MG/DL *CHILDREN AND ADOLESCENTS REPRESENTS INDIVIDUALA AGED 2-19 YEARS EXCLUSIVE. PLT 204 10E3/uL 140-440 [facility] ([facility] NORMAL RANGES Age WBC RBC HGB HCT [...] HCT IS 5% LESS SOURCE FOR DATA: Metrilus 1800 OPERATION MANUAL( AUTOMATED BLOOD COUNTS AND [...] DESIRABLE: <130 MG/DL <110 MG/DL BORDERLINE-HIGH RISK: 130- 159 MG/DL 110-129 MG/DL HIGH RISK: >160 MG/DL >130 MG/DL *CHILDREN AND ADOLESCENTS REPRESENTS INDIVIDUALA AGED 2-19 YEARS EXCLUSIVE. MCHC 34.1 g/dL 31.0-36.0 [facility] NORMAL RANGES Age WBC RBC HGB HCT [...] HCT IS 5% LESS SOURCE FOR DATA: Metrilus 1800 OPERATION MANUAL( AUTOMATED BLOOD COUNTS AND [...] DESIRABLE: <130 MG/DL <110 MG/DL BORDERLINE-HIGH RISK: 130- 159 MG/DL 110-129 MG/DL HIGH RISK: >160 MG/DL >130 MG/DL *CHILDREN AND ADOLESCENTS REPRESENTS INDIVIDUALA AGED 2-19 YEARS EXCLUSIVE. RDW-CV 12.0 % 11.5-14.5 [facility] ([facility] NORMAL RANGES Age WBC RBC HGB HCT [...] HCT IS 5% LESS SOURCE FOR DATA: Metrilus 1800 OPERATION MANUAL( AUTOMATED BLOOD COUNTS AND [...] DESIRABLE: <130 MG/DL <110 MG/DL BORDERLINE-HIGH RISK: 130- 159 MG/DL 110-129 MG/DL HIGH RISK: >160 MG/DL >130 MG/DL *CHILDREN AND ADOLESCENTS REPRESENTS INDIVIDUALA AGED 2-19 YEARS EXCLUSIVE. Lym% 35.0 % 10.0-58.5 [facility] NORMAL RANGES Age WBC RBC HGB HCT [...] HCT IS 5% LESS SOURCE FOR DATA: Metrilus 1800 OPERATION MANUAL( AUTOMATED BLOOD COUNTS AND [...] DESIRABLE: <130 MG/DL <110 MG/DL BORDERLINE-HIGH RISK: 130- 159 MG/DL 110-129 MG/DL HIGH RISK: >160 MG/DL >130 MG/DL *CHILDREN AND ADOLESCENTS REPRESENTS INDIVIDUALA AGED 2-19 YEARS EXCLUSIVE. MXD% 10.2 % 0.1-24.0 [facility] ([facility] NORMAL RANGES Age WBC RBC HGB HCT [...] HCT IS 5% LESS SOURCE FOR DATA: Metrilus 1800 OPERATION MANUAL( AUTOMATED BLOOD COUNTS AND [...] DESIRABLE: <130 MG/DL <110 MG/DL BORDERLINE-HIGH RISK: 130- 159 MG/DL 110-129 MG/DL HIGH RISK: >160 MG/DL >130 MG/DL *CHILDREN AND ADOLESCENTS REPRESENTS INDIVIDUALA AGED 2-19 YEARS EXCLUSIVE. Neut% 54.8 % 37.0-92.0 [facility] ([facility] NORMAL RANGES Age WBC RBC HGB HCT [...] HCT IS 5% LESS SOURCE FOR DATA: Metrilus 1800 OPERATION MANUAL( AUTOMATED BLOOD COUNTS AND [...] DESIRABLE: <130 MG/DL <110 MG/DL BORDERLINE-HIGH RISK: 130- 159 MG/DL 110-129 MG/DL HIGH RISK: >160 MG/DL >130 MG/DL *CHILDREN AND ADOLESCENTS REPRESENTS INDIVIDUALA AGED 2-19 YEARS EXCLUSIVE. Lym# 2.5 10E3/uL 0.6-4.1 [facility] ([facility] NORMAL RANGES Age WBC RBC HGB HCT [...] HCT IS 5% LESS SOURCE FOR DATA: Metrilus 1800 OPERATION MANUAL( AUTOMATED BLOOD COUNTS AND [...] DESIRABLE: <130 MG/DL <110 MG/DL BORDERLINE-HIGH RISK: 130- 159 MG/DL 110-129 MG/DL HIGH RISK: >160 MG/DL >130 MG/DL *CHILDREN AND ADOLESCENTS REPRESENTS INDIVIDUALA AGED 2-19 YEARS EXCLUSIVE. Neut# 3.8 % 2.0-7.8 [facility] ([facility] NORMAL RANGES Age WBC RBC HGB HCT [...] HCT IS 5% LESS SOURCE FOR DATA: Metrilus 1800 OPERATION MANUAL( AUTOMATED BLOOD COUNTS AND [...] DESIRABLE: <130 MG/DL <110 MG/DL BORDERLINE-HIGH RISK: 130- 159 MG/DL 110-129 MG/DL HIGH RISK: >160 MG/DL >130 MG/DL *CHILDREN AND ADOLESCENTS REPRESENTS INDIVIDUALA AGED 2-19 YEARS EXCLUSIVE. MXD# 0.7 10E3/uL 0.0-1.8 [facility] NORMAL RANGES Age WBC RBC HGB HCT [...] HCT IS 5% LESS SOURCE FOR DATA: [employer] DYN 1800 OPERATION MANUAL( AUTOMATED BLOOD COUNTS AND [...] DESIRABLE: <130 MG/DL <110 MG/DL BORDERLINE-HIGH RISK: 130- 159 MG/DL 110-129 MG/DL HIGH RISK: >160 MG/DL >130 MG/DL *CHILDREN AND ADOLESCENTS REPRESENTS INDIVIDUALA AGED 2-19 YEARS EXCLUSIVE. MPV 11.8 fL 9.0-13.0 [facility] ([facility] NORMAL RANGES Age WBC RBC HGB HCT [...] HCT IS 5% LESS SOURCE FOR DATA: Metrilus 1800 OPERATION MANUAL( AUTOMATED BLOOD COUNTS AND [...] DESIRABLE: <130 MG/DL <110 MG/DL BORDERLINE-HIGH RISK: 130- 159 MG/DL 110-129 MG/DL HIGH RISK: >160 MG/DL >130 MG/DL *CHILDREN AND ADOLESCENTS REPRESENTS INDIVIDUALA AGED 2-19 YEARS EXCLUSIVE. ID Date Data Source [id number] 04/27/2020 12:00:00 AM EST [facility] Name Value Range Interpretation Code Description Data Aby rce(s) Supporting Document(s) SARS-CoV-2 (COVID-19) RNA [Presence] in Respiratory specimen by RYAN with probe detection [facility] This lab was ordered by [facility] and reported by [facility]. Procedure Social History Code Duration Value Status Description Data Source(s ) Alcohol intake 02/24/2021 12:00:00 AM EDT Ex-drinker (finding) comp leted Ex- drinker (finding) [facility] Vital Signs ID Date Data Source UNK Name Value Range Interpretation Code Description Data Source(s) Heart rate 59 /min 59 /min [facility] Body height 175.3 cm 175.3 cm [facility] Body weight 94.802 kg 94.802 kg [facility] Body mass index (BMI) [Ratio] 30.86 kg/m2 30.86 kg/m2 [facility] Oxygen saturation in Arterial blood by Pulse oximetry 98 % 98 % [facility] Systolic blood pressure 118 mm[Hg] 118 mm[Hg] [facility] Diastolic blood pressure 80 mm[Hg] 80 mm[Hg] [facility] Body mass index (BMI) [Ratio] 31.45 kg/m2 31.45 kg/m2 W1 ([facility]) Body weight 213 [lb_av] 213 [lb_av] eCW1 ([facility]) Body weight 96.62 kg 96.62 kg W1 ([facility]) Body height 69 [in_i] 69 [in_i] eCW1 ([facility]) Systolic blood pressure 124 mm[Hg] 124 mm[Hg] e CW1 ([facility]) Diastolic blood pressure 62 mm[Hg] 62 mm[Hg] eCW1 ([facility]) Body temperature 98.5 [degF] 98.5 [degF] eCW1 ( [facility]) Heart rate 86 /min 86 /min eCW1 ([facility]) Respiratory rate 18 /min 18 /min eCW1 ([facility]) Systolic blood pressure 104 mm[Hg] 104 mm[Hg] M EDENT ([facility] Diastolic blood pressure 80 mm[Hg] 80 mm[Hg] [facility] ([facility] Body temperature 97.3 [degF] 97.3 [degF] [facility] ([facility] Heart rate 89 /min 89 /min [facility] ([facility] Respiratory rate 16 /min 16 /min [facility] ( [facility] Body height 68.50 [in_i] 68.50 [in_i] [facility] ([facility] 5'8.50" Body weight 213.00 [lb_av] 213.00 [lb_av] MED[facility] T ([facility] Lysite body weight 140 [lb_av] 140 [lb_av] [facility] ([facility] Body mass index (BMI) [Ratio] 31.9 kg/m2 31.9 k g/m2 [facility] ([facility] Oxygen saturation in Arterial blood by Pulse oximetry 99 % 99 % [facility] ([facility] Body height 68.50 [in_i] 68.50 [in_i] [facility] ([facility] 5'8.50" Body weight 214.00 [lb_av] 214.00 [lb_av] [facility] ([facility] Lysite body weight 140 [lb_av] 140 [lb_av] [facility] ([facility] Body temperature 98.2 [degF] 98.2 [degF] [facility] ([facility] Heart rate 92 /min 92 /min [facility] ([facility] Respiratory rate 18 /min 18 /min [facility] ( [facility] Body mass index (BMI) [Ratio] 32.1 kg/m2 32.1 k g/m2 [facility] ([facility] Oxygen saturation in Arterial blood by Pulse oximetry 98 % 98 % [facility] ([facility] Diastolic blood pressure 72 mm[Hg] 72 mm[Hg] [facility] ([facility] Systolic blood pressure 122 mm[Hg] 122 mm[Hg] [facility] Systolic blood pressure 120 mm[Hg] 120 mm[Hg] M EDENT ([facility] Diastolic blood pressure 60 mm[Hg] 60 mm[Hg] [facility] ([facility] Body temperature 98.0 [degF] 98.0 [degF] [facility] ([facility] Heart rate 80 /min 80 /min [facility] ([facility] Body height 68.50 [in_i] 68.50 [in_i] [facility] ([facility] 5'8.50" Body weight 214.00 [lb_av] 214.00 [lb_av] MED[facility] T ([facility] Lysite body weight 140 [lb_av] 140 [lb_av] [facility] ([facility] Body mass index (BMI) [Ratio] 32.1 kg/m2 32.1 k g/m2 [facility] ([facility] Respiratory rate 16 /min 16 /min [facility] ( [facility] Oxygen saturation in Arterial blood by Pulse oximetry 98 % 98 % [facility] ([facility] Systolic blood pressure 118 mm[Hg] 118 mm[Hg] [facility] Body height 68.5 [in_i] 68.5 [in_i] [facility] ([facility]) 5'8.50" Body weight 94.802 kg 94.802 kg [facility] ([facility]) Diastolic blood pressure 66 mm[Hg] 66 mm[Hg] [facility] ([facility]) Lysite body weight 140 [lb_av] 140 [lb_av] MED[facility] T ([facility]) Body surface area Derived from formula 2.09 m2 2.09 m2 [facility] ([facility]) Body weight 209.00 [lb_av] 209.00 [lb_av] MED[facility] T ([facility], ) Body mass index (BMI) [Ratio] 31.3 kg/m2 31.3 k g/m2 [facility] ([facility], ) Respiratory rate 16 /min 16 /min [facility] ( [facility] Body weight 215.00 [lb_av] 215.00 [lb_av] MEDEN T ([facility] Body height 68.50 [in_i] 68.50 [in_i] [facility] ([facility] 5'8.50" [place] body weight 140 [lb_av] 140 [lb_av] MEDEN T ([facility] Body mass index (BMI) [Ratio] 32.2 kg/m2 32.2 k g/m2 [facility] ([facility] Systolic blood pressure 126 mm[Hg] 126 mm[Hg] M EDENT ([facility] Diastolic blood pressure 84 mm[Hg] 84 mm[Hg] [facility] ([facility] Body temperature 98.0 [degF] 98.0 [degF] [facility] ([facility] Heart rate 70 /min 70 /min [facility] ([facility] Oxygen saturation in Arterial blood by Pulse oximetry 98 % 98 % [facility] ([facility] Heart rate 74 /min 74 /min [facility] ([facility] Respiratory rate 16 /min 16 /min [facility] ( [facility] Body temperature 98.2 [degF] 98.2 [degF] [facility] ([facility] Body height 68.50 [in_i] 68.50 [in_i] [facility] ([facility] 5'8.50" Body weight 209.00 [lb_av] 209.00 [lb_av] MEDEN T ([facility] [place] body weight 140 [lb_av] 140 [lb_av] MEDEN T ([facility] Body mass index (BMI) [Ratio] 31.3 kg/m2 31.3 k g/m2 [facility] ([facility] Oxygen saturation in Arterial blood by Pulse oximetry 98 % 98 % [facility] ([facility] Systolic blood pressure 110 mm[Hg] 110 mm[Hg] M AMOS ([facility] Diastolic blood pressure 72 mm[Hg] 72 mm[Hg] MANJE[facility] ([facility] Patient Treatment Plan of Care Planned Activity Planned Date Details Description Data Source (s) Continuous Blood Gluc Sensor (Dexcom G6 Sensor) [facility] 12:00:00 AM EDT [facility] Continuous Blood Gluc Transmit (Dexcom G6 Transmitter) [facility] 12/21/2020 12:00:00 AM EDT [facility] Continuous Blood Gluc Fishing Guide (Dexcom G6 Fishing Guide) [place] 12/19/2020 12:00:00 AM EDT [facility] cetirizine hydrochloride 10 MG Oral Tablet 12/18/2020 12:00:00 AM E DT [facility] Citalopram 10 MG Oral Tablet 12/01/2020 12:00:00 AM EDT [facility] pantoprazole 40 MG Delayed Release Oral Tablet 11/10/2019 12:00:00 AM EDT [facility] Omeprazole 10 MG Delayed Release Oral Capsule [facility]
[2021-03-12 23:41] LABS: BASO # 0.1 10^3/uL (0.0-0.2); BASO % 0.5 % (0.0-1.0); EOS # 0.4 10^3/uL (0.0-0.5); EOS % 4.1 % (0.0-3.0); HEMOGLOBIN 13.8 g/dl (12.0-15.5); LYMPH # 2.7 10^3/uL (1.5-5.0); LYMPH % 29.2 % (24.0-44.0); MEAN CORPUSCULAR HEMOGLOBIN 30.9 pg (27.0-33.0); MEAN CORPUSCULAR HGB CONC 33.7 g/dl (32.0-36.5); MEAN CORPUSCULAR VOLUME 91.9 fl (80.0-96.0); MONO # 0.7 10^3/uL (0.0-0.8); MONO % 7.7 % (2.0-8.0); NEUTROPHILS # 5.3 10^3/uL (1.5-8.5); NEUTROPHILS % 58.3 % (36.0-66.0); PLATELET COUNT, AUTOMATED 200 10^3/uL (150-450); RED BLOOD COUNT 4.46 10^6/uL (4.00-5.40); WHITE BLOOD COUNT 9.1 10^3/uL (4.0-10.0)
[2021-03-12 23:56] LABS: HCG, SERUM QUALITATIVE NEGATIVE (NEGATIVE)
[2021-03-13 00:12] LABS: BLOOD UREA NITROGEN 22 MG/DL (7-18); CALCIUM LEVEL 9.4 MG/DL (8.5-10.1); CARBON DIOXIDE LEVEL 27 MEQ/L (21-32); CHLORIDE LEVEL 107 MEQ/L (98-107); CK-MB VALUE MASS 1.5 NG/ML (<3.6); CPK CREATINE PHOSPHOKINASE 102 U/L (26-192); CREATININE FOR GFR 0.85 MG/DL (0.55-1.30); GLOMERULAR FILTRATION RATE > 60.0 (>58); GLUCOSE, FASTING 112 MG/DL (70-100); MB/CK RELATIVE INDEX 1.47 (< OR =4); POTASSIUM SERUM 3.8 MEQ/L (3.5-5.1); SODIUM LEVEL 139 MEQ/L (136-145); TROPONIN I < 0.02 NG/ML (< 0.10)
--- NOTE | 2021-03-13 01:35 | REPVR ---
PROCEDURE INFORMATION: Exam: XR Chest Exam date and time: 03/12/2021 12:39 AM Age: 45 years old Clinical indication: Other: Chest pain that has worsened tonight TECHNIQUE: Imaging protocol: XR of the chest. Views: 1 view. COMPARISON: CR PORTABLE CHEST X-RAY 09/19/2018 10:18 PM FINDINGS: Lungs: Unremarkable. No consolidation. Pleural spaces: Unremarkable. No pleural effusion. No pneumothorax. Heart/Mediastinum: Unremarkable. No cardiomegaly. Bones/joints: Unremarkable. IMPRESSION: No acute findings. Electronically signed by: Hemanth Estrella On 03/13/2021 01:34:56 AM
[2021-03-13] MEDS ORDERED: IBUPROFEN 800 MG TAB PO ONE (02:00)
--- OUTSIDE RECORDS SUMMARY | 2021-03-13 02:08 | CCD ---
Author Author [facility] Organization [facility] Address Unknown Phone Unavailable Care Team Providers Care Software Recruiter Name Role Phone Kocan, J Nesas VACATION GUIDE Unavailable Unavailable Kocan, J Nessa VACATION GUIDE Unavailable Unavailable Kocan, J Nessa VACATION GUIDE Unavailable Unavailable Kocan, J Nessa VACATION GUIDE Unavailable Unavailable Kocan, J Nessa VACATION GUIDE Unavailable Unavailable Kocan, J Nessa VACATION GUIDE Unavailable Unavailable Kocan, J Nessa VACATION GUIDE Unavailable Unavailable Kocan, J Nessa VACATION GUIDE Unavailable Unavailable Kocan, J Nessa VACATION GUIDE Unavailable Unavailable Kocan, J Nessa VACATION GUIDE Unavailable Unavailable Kocan, J Nessa VACATION GUIDE Unavailable Unavailable Kocan, J Nessa VACATION GUIDE Unavailable Unavailable Kocan, J Nessa VACATION GUIDE Unavailable Unavailable Maury, D Samuel PA Unavailable [...] Unavailable Maury, D Samuel PA Unavailable Unavailable Mauyr, D Samuel PA Unavailable Unavailable Maury, D [...] is protected by Article 27-F of the [facility] Public Health law. If you continue you may have access to information: Regarding HIV / AIDS; Provided by facilities licensed or operated by the [facility] Office of Mental Health; or Provided by the [facility] Office for People With Developmental Disabilities. If such information is present, then the following [facility] mandated warning applies: This information has been [...] law may result in a fine or shelter sentence or both. A general authorization for the release of medical or other information is NOT sufficient authorization for further disc losure. Allergies and Adverse Reactions Type Description Substance Reaction Status Data Source(s ) Propensity to adverse reactions HYDROCODONE Hydrocodone Facial Sw elling High Active [facility] High Propensity to adverse reactions GUAIFENESIN ER Guaifenesin Er Hives [facility] Active [facility] High Family History Family Member Name Family Member Gender Family Member Status Date o f Status Description Data Source(s) Unknown Unknown Problem MEDENT ([facility] Unknown Male Problem MEDENT ([facility]) Unknown Male Problem MEDENT ([facility]) Encounters Encounter Providers Location Date Indications Data Source(s ) Outpatient ELVIN-ELVIN 03/03/2021 12:00:00 AM EDT [facility] Outpatient Attender: Nessa OCONNOR-ELVIN 2020 12:00:00 AM EDT - 02/24/2021 11:25:40 AM EDT [facility] [address], [facility] [id number] 12/30/2020 12:00:00 AM EDT eCW1 ([facility]) Outpatient Attender: Samuel NEWMAN [place] Office 02:40:00 PM EDT MED[facility] ([facility] Outpatient Attender: Samuel NEWMAN [place] [facility] 06/2020 03:30:00 PM EDT MED[facility] ([facility] Outpatient Attender: Samuel NEWMAN [place] [facility] 01:15:00 PM EDT MED[facility] ([facility] Outpatient Attender: Samuel NEWMAN [place] [facility] 11:30:00 AM EDT MED[facility] ([facility] Outpatient Attender: Samuel NEWMAN [place] [facility] 03/2020 01:15:00 PM EDT [facility] ([facility] Medications Medication Brand Name Start Date Product Form Dose Route Admi nistrative Instructions Pharmacy Instructions Status Indications Reaction Description Data Source(s) Continuous Blood Gluc Sensor (Dexcom G6 Sensor) [facility] [id number] 02/03/2021 12:00:00 AM EDT active [facility] Continuous Blood Gluc Transmit (Dexcom G6 Transmitter) [facility] [id number] 12/21/2020 12:00:00 AM EDT active [facility] Continuous Blood Gluc Set Up Inspector (Dexcom G6 Set Up Inspector) [facility] [id number] 12/19/2020 12:00:00 AM EDT active [facility] buspirone hydrochloride 5 MG Oral Tablet Buspirone HCL 12/18/2020 12:00:00 AM EDT ORAL active MEDENT ([facility] cetirizine hydrochloride 10 MG Oral Tablet cetirizine (ZyrTEC) 10 MG tablet cetirizine (ZyrTEC) 10 MG tablet 12/18/2020 12:00:00 AM EDT active [facility] Dexcom G6 Set Up Inspector 12/01/2020 12:00:00 AM EDT active MED[facility] (Family [...] tablet 12/01/2020 12:00:00 AM EDT a borted [facility] POLYETHYLENE GLYCOL 3350 142 MG/ML Oral Solution [Miralax] M iralax 09/22/2020 12:00:00 AM EDT active M EDENT ([facility] ) Prednisone 10 MG Oral Tablet Prednisone 07/15/2020 12:00:00 AM EDT ORAL completed [facility] ([facility] 0.3 ML Epinephrine 1 MG/ML Auto-Injector [Epipen] Epipen 2-P ak 07/15/2020 12:00:00 AM EDT active M EDENT ([facility] Triamcinolone Acetonide 1 [...] Take 1 tablet by mouth d aily [facility] Omeprazole 10 MG Delayed Release Oral Ca psule omeprazole (PriLOSEC) 10 MG capsule omeprazole (PriLOSEC) 10 MG capsule aborted [facility] Insurance Providers Payer name Policy type / Coverage type Policy ID Covered democrat ID Covered democrat's relationship to nina Policy Nina Plan Information Medicaid [facility] Part B [id number] [id number] .[id number] Self [id number] Medicaid [facility] Part B [id number] 2.0.1.548527.3.227.99 .[id number] Self [id number] Medicaid [facility] Part B [id number] 2.840.1.595312.3.227.99 .[id number] Self [id number] Medicaid [facility] Part B [id number] 2.840.1.979218.3.227.99 .991.168453.0 Self [id number] Medicaid [facility] Part B [id number] 2.840.1.925534.3.227.99 .991.582303.0 Self [id number] Medicaid [facility] Part B [id number] 2.840.1.525476.3.227.99 .991.641656.0 Self [id number] Medicaid [facility] Part B [id number] 2.840.1.447638.3.227.99 .991.764879.0 Self [id number] Medicaid [facility] Part B [id number] 2.840.1.120666.3.227.99 .991.063140.0 Self [id number] [place] [id number] 2.16.840.1.386169.3.227.99 .991.558946.0 Self [id number] [place] [id number] 2.16.840.1.116724.3.227.99 .991.669406.0 Self [id number] [place] [id number] 2.16.840.1.303004.3.227.99 .991.963567.0 Self [id number] [place] [id number] 2.16.840.1.036369.3.227.99 .991.213150.0 Self [id number] [place] [id number] 2.16.840.1.879019.3.227.99 .991.292958.0 Self [id number] [place] [id number] 2.16.840.1.537096.3.227.99 .991.432895.0 Self [id number] [place] [id number] 2.16.840.1.786802.3.227.99 .991.858213.0 Self [id number] [place] [id number] 2.16.840.1.480791.3.227.99 .991.809359.0 Self [id number] [place] [id number] 2.16.840.1.865775.3.227.99 .991.694828.0 Self [id number] [place] [id number] 2.16.840.1.906957.3.227.99 .991.312505.0 Self [id number] Ghi FHP-(DO Not Use) Medigap Part B [id number] 2.16.840.1.471150.3.227.99.991.847972.0 Self [id number] Ghi FHP-(DO Not Use) Medigap Part B [id number] 2.16.840.1.550434.3.227.99.991.167544.0 Self [id number] Ghi FHP-(DO Not Use) Medigap Part B [id number] 2.16.840.1.386805.3.227.99.991.537321.0 Self [id number] Ghi FHP-(DO Not Use) Medigap Part B [id number] 2.16.840.1.015476.3.227.99.991.814131.0 Self [id number] Ghi FHP-(DO Not Use) Medigap Part B [id number] 2.16.840.1.450698.3.227.99.991.690251.0 Self [id number] [facility] Medigap Part B [id number] 2.16.840.1.926780.3.227.99.991.395690.0 Self [id number] Ghi FHP-(DO Not Use) Medigap Part B [id number] 2.16.840.1.007010.3.227.99.991.771797.0 Self [id number] Ghi FHP-(DO Not Use) Medigap Part B [id number] 2.16.840.1.990603.3.227.99.991.423503.0 Self [id number] Ghi FHP-(DO Not Use) Medigap Part B [id number] 2.16.840.1.509394.3.227.99.991.503687.0 Self [id number] Ghi FHP-(DO Not Use) Medigap Part B [id number] 2.16.840.1.737883.3.227.99.991.111429.0 Self [id number] Ghi FHP-(DO Not Use) Medigap Part B [id number] 2.16.840.1.441629.3.227.99.991.141360.0 Self [id number] Ghi FHP-(DO Not Use) Medigap Part B [id number] 2.16.840.1.783021.3.227.99.991.404695.0 Self [id number] Ghi FHP-(DO Not Use) Medigap Part B [id number] 2.16.840.1.351359.3.227.99.991.234237.0 Self [id number] Ghi FHP-(DO Not Use) Medigap Part B [id number] 2.16.840.1.177664.3.227.99.991.788903.0 Self [id number] Ghi FHP-(DO Not Use) Medigap Part B [id number] 2.16.840.1.560046.3.227.99.991.998442.0 Self [id number] Ghi FHP-(DO Not Use) Medigap Part B [id number] 2.16.840.1.698456.3.227.99.991.758521.0 Self [id number] Ghi FHP-(DO Not Use) Medigap Part B [id number] 2.16.840.1.782592.3.227.99.991.033072.0 Self [id number] Ghi FHP-(DO Not Use) Medigap Part B [id number] 2.16.840.1.938061.3.227.99.991.443955.0 Self [id number] Ghi FHP-(DO Not Use) Medigap Part B [id number] 2.16.840.1.031040.3.227.99.991.607183.0 Self [id number] BCBS [facility] 332/834 [id number] HU2 [id number] BCBS [facility] 303/803 [id number] [id number] BLUE CROSS OTHER 1 [id number] HU2 [id number] [facility] [place] Medigap Part B [id number] 2.0.1.000907.3.227.99.991.604186.0 [id number] BS [place] Medigap Part B [id number] 2.0.1.148609.3.227.99.991.929517.0 [id number] BS [place] Medigap Part B [id number] 2.0.1.900621.3.227.99.991.438823.0 [id number] BS [place] Medigap Part B [id number] 2.0.1.377503.3.227.99.991.052440.0 [id number] BS [place] Medigap Part B [id number] 2.0.1.734193.3.227.99.991.213801.0 [id number] BS [place] Medigap Part B [id number] 2.0.1.970980.3.227.99.991.217545.0 [id number] BS [place] Medigap Part B [id number] 2.0.1.407967.3.227.99.991.153332.0 [id number] BS [place] Medigap Part B [id number] 2.0.1.340954.3.227.99.991.281903.0 [id number] BS [place] Medigap Part B [id number] 2.16.840.1.737192.3.227.99.991.027105.0 [id number] BS [place] Medigap Part B [id number] 2.840.1.840140.3.227.99.991.701567.0 [id number] BS [place] Medigap Part B [id number] 2.840.1.590275.3.227.99.991.195946.0 [id number] BS [place] Medigap Part B [id number] 2.840.1.804294.3.227.99.991.973821.0 [id number] BS [place] Medigap Part B [id number] 2.0.1.563798.3.227.99.991.424674.0 [id number] BS [place] Medigap Part B [id number] 2.840.1.198780.3.227.99.991.635532.0 [id number] BS [place] Medigap Part B [id number] 2.0.1.577741.3.227.99.991.234329.0 [id number] BS [place] Medigap Part B [id number] 2.0.1.869457.3.227.99.991.693988.0 [id number] BS [place] Medigap Part B [id number] 2.0.1.324309.3.227.99.991.092733.0 [id number] BS [place] Medigap Part B [id number] 2.0.1.950332.3.227.99.991.474384.0 [id number] [facility] Health Maintenance Organization (O) [id number] 2.840.1.231941.3.227.99.8646.24291.0 Family Dependent [id number] [employer] BC[employer] Health Maintenance Organization (O) [id number] 2.0.1.768388.3.227.99.8646.23892.0 Family Dependent [id number] Blue Cross Blue Shield P [id number] SPOUSE [id number] [employer] BC[employer] Health Maintenance Organization (O) [id number] 34 2...419304.3.227.99.8646.90315.0 Family Dependent [id number] [employer] BCBS [id number] [employer] BCBS [id number] Unk TNY [id number] BCBS [place] PPO 302/307 [id number] HU2 [id number] BCBS [place] PPO 302/307 [id number] HU2 [id number] BS [place] Commercial [id number] 2...666150.3.227.99.991.442178.0 Self [id number] BS [place] Commercial [id number] 2...774835.3.227.99.991.020563.0 Family Dependent [id number] BS [place] Commercial [id number] ...332234.3.227.99.991.384022.0 Family Dependent [id number] BS [place] Commercial [id number] .0..655932.3.227.99.991.489837.0 Family Dependent [id number] BS [place] Commercial [id number] 2...181057.3.227.99.991.663693.0 Family Dependent [id number] BS [place] [employer] [id number] 2...656103.3.227.99.991.194325.0 Family Dependent [id number] BS [place] Commercial [id number] 2.840.1.369096.3.227.99.991.277912.0 Family Dependent [id number] BS [place] Commercial [id number] 2.840.1.256377.3.227.99.991.876450.0 Family Dependent [id number] BS [place] Commercial [id number] 2.840.1.279838.3.227.99.991.713003.0 Family Dependent [id number] BS [place] [employer] [id number] 2.0.1.650566.3.227.99.991.431496.0 Family Dependent [id number] BS [place] Commercial [id number] 2.0.1.143611.3.227.99.991.593886.0 Family Dependent [id number] BS [place] [employer] [id number] 2.0.1.408954.3.227.99.991.025233.0 Family Dependent [id number] BS [place] Commercial [id number] 2.840.1.544911.3.227.99.991.692508.0 Family Dependent [id number] BS [place] Commercial [id number] 2.840.1.682291.3.227.99.991.404214.0 Family Dependent [id number] BS [place] Commercial [id number] 2.840.1.538470.3.227.99.991.031417.0 Family Dependent [id number] BS [place] Commercial [id number] 2.0.1.907993.3.227.99.991.587541.0 Family Dependent [id number] BS [place] Commercial [id number] 2..1.334958.3.227.99.991.551713.0 Family Dependent [id number] BS [place] Commercial [id number] 2..1.755190.3.227.99.991.285196.0 Family Dependent [id number] Blue Cross Blue Shield P [id number] SPOUSE [id number] SELF PAY COVID-19 [id number] Brooke [id number] [employer] BC-BS PPO 306 [id number] HU2 [id number] BCBS/[employer] Commercial [id number] 2...184281.3.227.99. 1767.74968.0 Family Dependent [id number] ANSI-Commercial [id number] BS [place] Medigap Part B [id number] 2...148797.3.227.99.991.628803.0 Self [id number] BCBS ..1.991927.3.441 [id number] Blue Cross/Bl ue Shield 2..1.226590.3.441 BCBS 2..1.890105.3.441 [id number] Blue Cross/Bl ue Shield 2..1.283302.3.441 Blue Cross Blue Shield P [id number] SELF [id number] BCBS [place] PPO 302/307 [id number] HU2 [id number] MEDICAID [id number] SP [id number] [employer] BCBS B [id number] P [id number] [id number] BCBS [place] PPO 302/307 [id number] HU2 [id number] BCBS/[employer] Commercial [id number] 2.16.840.1.307353.3.227.99. 1767.65642.0 Family Dependent [id number] SELF PAY ONLY BEST BENEFITS [id number] HU2 [id number] [employer] BCBS P [id number] P [id number] [employer] BCBS P [id number] P [id number] [employer] BC-BS PPO 306 [id number] HU2 [id number] BCBS [place] PPO 302/307 [id number] Problems, Conditions, and Diagnoses Code Display Name Description Problem Type Effective Dates Data Source(s) E78.5 Hyperlipidemia, unspecified Hyperlipidemia, unspecifie d Diagnosis 02/24/2021 09:31:47 AM EDT [facility] R94.31 Abnormal electrocardiogram [ECG] [EKG] A bnormal electrocardiogram (ECG) (EKG) Diagnosis 02/24/2021 09:31:47 AM EDT [facility] R06.02 Shortness of breath Shortness of breath Diagnosis 1 09:31:47 AM EDT [facility] R06.02 Shortness of breath on exertion Shortness of breath on exertion [id number] 03/04/2021 12:00:00 AM EDT [facility] R07.89 Left chest pressure Left chest pressure [id number] 05/04/2020 12:00:00 AM EDT [facility] G89.29 [id number] Other chronic pain Problem 01/20/2021 12:00: 00 AM EDT eCW1 ([facility]) F41.9 Anxiety state Anxiety state Problem 12/01/2020 [...] PalpitationsAbnormal EKGShortness of breath on exertio n [facility] Palpitations Abnormal EKG Shortness of breath on [...] [facility] Results ID Date Data Source [id number] 12/01/2020 04:09:00 PM EDT [facility] Name Value Range Interpretation Code Description Data Aby rce(s) Supporting Document(s) Hemoglobin A1c/Hemoglobin.total in Blood 6.3 % 4.50-6.20 Above high normal [facility] ([facility] ID Date Data Source [id number] 09/23/2020 01:20:00 AM EDT [facility] ([facility] Name Value Range Interpretation Code Description Data Aby rce(s) Supporting Document(s) Laboratory test finding (navigational concept) Laboratory test r esult Normal (applies to non-numeric results) [facility] ([facility] <content>QUANTITATIVE RESULT QU ALITATIVE INTERPRETATION</content>
<content> </content>
<content><5.0 IU/L NEGATIVE</content>
<content>5.0 - 25.0 IU/L INDETERMINATE</content>
<content>>25.0 IU/L POSITIVE</content>
<content></content> ID Date Data Source [id number] 09/23/2020 01:12:00 AM EDT MED[facility] ([facility] Name Value Range Interpretation Code Description [facility] Supporting Document(s) Reflex Urine Culture Laboratory test result Norm al (applies to non-numeric results) [facility] ([facility] FULL REPORT IN LAB NOTES (eCW and Medent ). NO GROWTH CLINICAL SIGNIFICANCE 2 OR MORE ORGANISMS ID Date Data Source [id number] 09/23/2020 01:12:00 AM EDT [facility] ([facility] Name Value Range Interpretation Code Description Data [facility] Supporting Document(s) Lipoprotein lipase [Enzymatic activity/volume] in Serum or Plasm a 62 U/L 73-393 Below low normal [facility] ([facility] ID Date Data Source [id number] 09/23/2020 01:12:00 AM EDT [facility] ([facility] Name Value Range Interpretation Code Description Data Aby e(s) Supporting Document(s) Ast/Sgot 15 U/L 7-37 Normal (applies to non-numeric resul ts) [facility] ([facility] Alt/SGPT 33 U/L 12-78 Normal (applies to non-numeric resul ts) [facility] ([facility] Alkaline Phosphatase 56 U/L 45-117 Normal (applies to non-num alexx results) [facility] ([facility] Bilirubin,Total 1.2 mg/dL 0.2-1.0 Above high normal ME DENT ([facility] Bilirubin,Direct 0.3 mg/dL 0.0-0.2 Above high normal M EDENT ([facility] Total Protein 7.7 GM/DL 6.4-8.2 Normal (applies to non-numeric re sults) [facility] ([facility] Albumin 4.0 GM/DL 3.2-5.2 Normal (applies to non-numeric resul ts) [facility] ([facility] Albumin/Globulin Ratio 1.1 1.2-2.2 Below low normal [facility] ([facility] ID Date Data Source [id number] 09/23/2020 01:12:00 AM EDT [facility] ([facility] Name Value Range Interpretation Code Description Data Aby rce(s) Supporting Document(s) White Blood Count 14.9 10 4.0-10.0 Above high normal [facility] ([facility] Red Blood Count 4.32 10 4.00-5.40 Normal (applies to non-numeric results) [facility] ([facility] Hematocrit 39.9 % 36.0-47.0 Normal (applies to non-numeric resul ts) [facility] ([facility] Hemoglobin 13.3 g/dL 12.0-15.5 Normal (applies to non-numeric resul ts) [facility] ([facility] Mean Corpuscular Hemoglobin 30.8 pg 27.0-33.0 Norm al (applies to non-numeric results) [facility] ([facility] Mean Corpuscular Volume 92.4 fl 80.0-96.0 Normal ( applies to non-numeric results) [facility] ([facility] Mean Corpuscular HGB Conc 33.3 g/dL 32.0-36.5 Normal (applies to non-numeric results) [facility] ([facility] Red Cell Distribution Width 12.5 % 11.5-14.5 Norm al (applies to non-numeric results) [facility] ([facility] Platelet Count, Automated 209 10 150-450 Normal (applies to non-numeric results) [facility] ([facility] Neutrophils % 72.8 % 36.0-66.0 Above high normal MEDE NT ([facility] Yates % 8.2 % 2.0-8.0 Above high normal [facility] ([facility] Lymph % 16.2 % 24.0-44.0 Below low normal [facility] ( [facility] Baso % 0.4 % 0.0-1.0 Normal (applies to non-numeric resul ts) [facility] ([facility] Eos % 1.9 % 0.0-3.0 Normal (applies to non-numeric resul ts) [facility] ([facility] Immature Granulocyte % 0.5 % 0-3.0 Normal (applies to non-n umeric results) [facility] ([facility] Nucleated Red Blood Cell % 0.0 % 0-0 Normal (applies to n on-numeric results) [facility] ([facility] Neutrophils # 10.8 10 1.5-8.5 Above high normal MEDE NT ([facility] Lymph # 2.4 10 1.5-5.0 Normal (applies to non-numeric resul ts) [facility] ([facility] Eos # 0.3 10 0.0-0.5 Normal (applies to non-numeric resul ts) [facility] ([facility] Yates # 1.2 10 0.0-0.8 Above high normal [facility] ([facility] Baso # 0.1 10 0.0-0.2 Normal (applies to non-numeric resul ts) [facility] ([facility] ID Date Data Source [id number] 09/23/2020 01:12:00 AM EDT [facility] ([facility] Name Value Range Interpretation Code Description Data Aby rce(s) Supporting Document(s) Appearance, Urine RFX Laboratory test result Nor mal (applies to non-numeric results) [facility] ([facility] Color, Urine RFX Laboratory test result Normal ( applies to non-numeric results) [facility] ([facility] ) PH,Urine RFX 6.0 units 5.0-9.0 Normal (applies to non-numeric res ults) [facility] ([facility] Specific Ideal Ur Auto RFX 1.012 1.002-1.035 Nor mal (applies to non-numeric results) [facility] ([facility] ) Protein, Urine Auto RFX Laboratory test result N ormal (applies to non-numeric results) [facility] ([facility] ) Glucose, Urine (Ua) Auto RFX Laboratory test result Normal (applies to non- numeric results) [facility] ([facility] ) Ketone, Urine Auto RFX Laboratory test result No rmal (applies to non-numeric results) [facility] ([facility] ) Urobilinogen, Urine Auto RFX 0.2 mg/dL 0.0-2.0 Nor mal (applies to non-numeric results) [facility] ([facility] ) Bilirubin, Urine Auto RFX Laboratory test result Normal (applies to non- numeric results) [facility] ([facility] ) Nitrite, Urine Auto RFX Laboratory test result N ormal (applies to non-numeric results) [facility] ([facility] ) Blood, Urine Blood RFX Laboratory test result No rmal (applies to non-numeric results) [facility] ([facility] ) Leukocyte Esterase Ur Auto RFX Laboratory test result Abov e high normal [facility] ([facility] RBC, Urine Auto RFX 4 /HPF 0-3 Above high normal [facility] ([facility] WBC, Urine Auto RFX 7 /HPF 0-3 Above high normal [facility] ([facility] Bacteria, Urine Auto RFX Laboratory test result Above high normal [facility] ([facility] Mucus, Urine RFX Laboratory test result Normal ( applies to non-numeric results) [facility] ([facility] ) Squam Epithelial Cell Ur Aurfx 7 /HPF 0-6 N ormal (applies to non-numeric results) [facility] ([facility] ) Hyaline Cast, Urine Auto RFX 0 /LPF 0-1 Normal (appl ies to non-numeric results) [facility] ID Date Data Source [id number] 09/21/2020 08:59:00 PM EDT [facility] ([facility] Name Value Range Interpretation Code Description Data Aby rce(s) Supporting Document(s) Laboratory test finding (navigational concept) 43.0 % 3 8.0-51.0 Normal (applies to non-numeric results) [facility] ([facility] Laboratory test finding (navigational concept) 139 meq/L 1 36-145 Normal (applies to non-numeric results) [facility] Laboratory test finding (navigational concept) 107 mg/dL 7 0-105 Above high normal [facility] ([facility] ) Laboratory test finding (navigational concept) 102 meq/L 9 8-109 Normal (applies to non-numeric results) [facility] Laboratory test finding (navigational concept) 4.8 mg/dL 4 .5-5.3 Normal (applies to non-numeric results) [facility] Laboratory test finding (navigational concept) 3.9 meq/L 3 .5-5.1 Normal (applies to non-numeric results) [facility] ([facility] Laboratory test finding (navigational concept) 27.0 MM/L 2 3.0-27.0 Normal (applies to non-numeric results) [facility] Laboratory test finding (navigational concept) 12 mg/dL 8 -26 Normal (applies to non-numeric results) [facility]) Laboratory test finding (navigational concept) 0.8 mg/dL 0 .6-1.3 Normal (applies to non-numeric results) [facility] ([facility] ID Date Data Source [id number] 09/21/2020 08:45:00 PM EDT [facility] ([facility] Name Value Range Interpretation Code Description Data Aby rce(s) Supporting Document(s) White Blood Count 12.9 10 4.0-10.0 Above high normal [facility] ([facility] Red Blood Count 4.59 10 4.00-5.40 Normal (applies to non-numeric results) [facility] ([facility] Hemoglobin 14.1 g/dL 12.0-15.5 Normal (applies to non-numeric resul ts) [facility] ([facility] Hematocrit 42.6 % 36.0-47.0 Normal (applies to non-numeric resul ts) [facility] ([facility] Mean Corpuscular Volume 92.8 fl 80.0-96.0 Normal ( applies to non-numeric results) [facility] ([facility] ) Mean Corpuscular Hemoglobin 30.7 pg 27.0-33.0 Norm al (applies to non-numeric results) [facility] ([facility] ) Mean Corpuscular HGB Conc 33.1 g/dL 32.0-36.5 Normal (applies to non-numeric results) [facility] ([facility] ) Red Cell Distribution Width 12.7 % 11.5-14.5 Norm al (applies to non-numeric results) [facility] ([facility] ) Neutrophils % 69.3 % 36.0-66.0 Above high normal MEDE NT ([facility] Platelet Count, Automated 230 10 150-450 Normal (applies to non-numeric results) [facility] ([facility] ) Lymph % 20.0 % 24.0-44.0 Below low normal [facility] ( [facility] Yates % 7.0 % 2.0-8.0 Normal (applies to non-numeric resul ts) [facility] ([facility] Baso % 0.5 % 0.0-1.0 Normal (applies to non-numeric resul ts) [facility] ([facility] Eos % 2.7 % 0.0-3.0 Normal (applies to non-numeric resul ts) [facility] ([facility] Immature Granulocyte % 0.5 % 0-3.0 Normal (applies to non-n umeric results) [facility] ([facility] Nucleated Red Blood Cell % 0.0 % 0-0 Normal (applies to n on-numeric results) [facility] ([facility] Neutrophils # 8.9 10 1.5-8.5 Above high normal MEDE NT ([facility] Yates # 0.9 10 0.0-0.8 Above high normal [facility] ([facility] Lymph # 2.6 10 1.5-5.0 Normal (applies to non-numeric resul ts) [facility] ([facility] Eos # 0.4 10 0.0-0.5 Normal (applies to non-numeric resul ts) [facility] ([facility] Baso # 0.1 10 0.0-0.2 Normal (applies to non-numeric resul ts) [facility] ([facility] ID Date Data Source [id number] 09/21/2020 08:45:00 PM EDT [facility] ([facility] Name Value Range Interpretation Code Description Data Aby rce(s) Supporting Document(s) Lactate [Mass/volume] in Serum or Plasma 0.8 mmol/L 0.4-2.0 Normal (applies to non-numeric results) [facility] ([facility]) Y/N query for Sepsis Lactate Rule: Y ID Date Data Source [id number] 09/21/2020 08:45:00 PM EDT [facility] ([facility] Name Value Range Interpretation Code Description Data Aby rce(s) Supporting Document(s) Alt/SGPT 39 U/L 12-78 Normal (applies to non-numeric resul ts) [facility] ([facility] Ast/Sgot 20 U/L 7-37 Normal (applies to non-numeric resul ts) [facility] ([facility] Alkaline Phosphatase 53 U/L 45-117 Normal (applies to non-num alexx results) [facility] ([facility] Bilirubin,Total 0.8 mg/dL 0.2-1.0 Normal (applies to non-numeric results) [facility] ([facility] Bilirubin,Direct 0.2 mg/dL 0.0-0.2 Normal (applies to non-numeric results) [facility] ([facility] Albumin 4.0 GM/DL 3.2-5.2 Normal (applies to non-numeric resul ts) [facility] ([facility] Total Protein 7.8 GM/DL 6.4-8.2 Normal (applies to non-numeric re sults) [facility] ([facility] Albumin/Globulin Ratio 1.1 1.2-2.2 Below low normal [facility] ([facility] ID Date Data Source [id number] 09/21/2020 08:45:00 PM EDT [facility] Name Value Range Interpretation Code Description Data Aby rce(s) Supporting Document(s) Choriogonadotropin.beta subunit ( test) [Pres ence] in Serum or Plasma Laboratory test result Normal (applies to non-numeric results) [facility] ([facility] ID Date Data Source [id number] 09/15/2020 12:36:[address] [facility] ([facility] Name Value Range Interpretation Code Description Data Aby rce(s) Supporting Document(s) Laboratory test finding (navigational concept) Laboratory test r esult Normal (applies to non-numeric results) [facility] ([facility] <content>QUANTITATIVE RESULT QU ALITATIVE INTERPRETATION</content>
<content> </content>
<content><5.0 IU/L NEGATIVE</content>
<content>5.0 - 25.0 IU/L INDETERMINATE</content>
<content>>25.0 IU/L POSITIVE</content>
<content></content> ID Date Data Source [id number] 09/15/2020 12:34:00 PM EDT [facility] ([facility] Name Value Range [...] [facility] ID Date Data Source [id number] 09/15/2020 12:25:00 PM EDT [facility] ([facility] Name Value Range Interpretation Code Description Data Aby rce(s) Supporting Document(s) Lipoprotein lipase [Enzymatic activity/volume] in Serum or Plasm a 95 U/L 73-393 Normal (applies to non-numeric results) [facility] ([facility] ID Date Data Source [id number] 09/15/2020 12:25:00 PM EDT [facility] ([facility] Name Value Range [...] [facility] ID Date Data Source [id number] 09/15/2020 12:25:00 PM EDT [facility] ([facility] Name Value Range [...] Normal ( applies to non-numeric results) [facility] ([facility] ) Mean Corpuscular Hemoglobin 31.4 pg 27.0-33.0 Norm al (applies to non-numeric results) [facility] ([facility] ) Mean Corpuscular HGB Conc 33.9 g/dL 32.0-36.5 Normal (applies to non-numeric results) [facility] ([facility] ) Red Cell Distribution Width 13.1 % 11.5-14.5 Norm al (applies to non-numeric results) [facility] ([facility] ) Platelet Count, Automated 255 10 150-450 Normal (applies to non-numeric results) [facility] ([facility] ) Neutrophils % 56.6 % 36.0-66.0 Normal (applies to non-numeric re sults) [facility] ([facility] Lymph % 30.4 % 24.0-44.0 Normal (applies to non-numeric resul ts) [facility] ([facility] Yates % 7.7 % 2.0-8.0 Normal (applies to [...] Normal (applies to non-numeric resul ts) [facility] ([facility] Neutrophils # 5.2 10 1.5-8.5 Normal (applies to non-numeric re sults) [facility] ([facility] Eos # 0.4 10 0.0-0.5 Normal (applies to non-numeric resul ts) [facility] ([facility] Yates # 0.7 10 0.0-0.8 Normal (applies to non-numeric resul ts) [facility] ([facility] Baso # 0.1 10 0.0-0.2 Normal (applies to non-numeric resul ts) [facility] ([facility] ID Date Data Source [id number] 09/15/2020 12:25:00 PM EDT [facility] Name Value Range Interpretation Code Description Data Aby rce(s) Supporting Document(s) Color, Urine RFX Laboratory test result Normal ( applies to non-numeric results) [facility] ([facility] ) Appearance, Urine RFX Laboratory test result Nor mal (applies to non-numeric results) [facility] ([facility] ) Specific Ideal Ur Auto RFX 1.012 1.002-1.035 Nor mal (applies to non-numeric results) [facility] ([facility] ) PH,Urine RFX 7.0 units 5.0-9.0 Normal (applies to non-numeric res ults) [facility] ([facility] Glucose, Urine (Ua) Auto RFX Laboratory test result Normal (applies to non- numeric results) [facility] ([facility] ) Protein, Urine Auto RFX Laboratory test result N ormal (applies to non-numeric results) [facility] ([facility] ) Ketone, Urine Auto RFX Laboratory test result No rmal (applies to non-numeric results) [facility] ([facility] ) Urobilinogen, Urine Auto RFX 0.2 mg/dL 0.0-2.0 Nor mal (applies to non-numeric results) [facility] ([facility] ) Nitrite, Urine Auto RFX Laboratory test result N ormal (applies to non-numeric results) [facility] ([facility] ) Bilirubin, Urine Auto RFX Laboratory test result Normal (applies to non- numeric results) [facility] ([facility] ) Blood, Urine Blood RFX Laboratory test result No rmal (applies to non-numeric results) [facility] ([facility] ) Leukocyte Esterase Ur Auto RFX Laboratory test result Abov e high normal [facility] ([facility] RBC, Urine Auto RFX 0 /HPF 0-3 Normal (applies to non-nume jorge luis results) [facility] ([facility] WBC, Urine Auto RFX 2 /HPF 0-3 Normal (applies to non-nume jorge luis results) [facility] ([facility] Bacteria, Urine Auto RFX Laboratory test result Normal (applies to non-numeric results) [facility] ([facility] ) Squam Epithelial Cell Ur Aurfx 2 /HPF 0-6 N ormal (applies to non-numeric results) [facility] ([facility] ) Hyaline Cast, Urine Auto RFX 0 /LPF 0-1 Normal (appl ies to non-numeric results) [facility] ([facility] ID Date Data Source [id number] 09/15/2020 12:25:00 PM EDT [facility] ([facility] Name Value Range Interpretation Code Description Data Aby rce(s) Supporting Document(s) Reflex Urine Culture Laboratory test result Norm al (applies to non-numeric results) [facility] ([facility] ) FULL REPORT IN LAB NOTES (eCW and [facility] ). NO GROWTH CLINICAL SIGNIFICANCE 2 OR MORE ORGANISMS ID Date Data Source [id number] 07/15/2020 01:03:00 PM EDT [facility] ([facility] Name Value Range Interpretation Code Description Data Aby rce(s) Supporting Document(s) Erythrocyte sedimentation rate by Westergren method 4 mm/hr 0-19 [facility] ([facility] ID Date Data Source [id number] 07/15/2020 01:00:00 PM EDT [facility] Name Value Range Interpretation Code Description Data Aby rce(s) Supporting Document(s) Chol 167 mg/dL 0-200 [facility] ([facility] NORMAL RANGES Age [...] HCT IS 5% LESS SOURCE FOR DATA: [employer] 1800 OPERATION MANUAL( AUTOMATED BLOOD COUNTS AND [...] 2-19 YEARS EXCLUSIVE. Trig 177 mg/dL 40-200 [facility] NORMAL [...] HCT IS 5% LESS SOURCE FOR DATA: [employer] 1800 OPERATION MANUAL( AUTOMATED BLOOD COUNTS AND [...] HCT IS 5% LESS SOURCE FOR DATA: [employer] 1800 OPERATION MANUAL( AUTOMATED BLOOD COUNTS AND [...] YEARS EXCLUSIVE. LDL_C 98 Calc 75-129 [facility] ([facility] NORMAL RANGES Age WBC [...] HCT IS 5% LESS SOURCE FOR DATA: [employer] 1800 OPERATION MANUAL( AUTOMATED BLOOD COUNTS AND [...] 2-19 YEARS EXCLUSIVE. Cho/HDL Ratio 4.[address] [facility] ([facility] NORMAL RANGES Age WBC [...] HCT IS 5% LESS SOURCE FOR DATA: [employer] 1800 OPERATION MANUAL( AUTOMATED BLOOD COUNTS AND [...] 2-19 YEARS EXCLUSIVE. ID Date Data Source [id number] 07/15/2020 01:00:00 PM EDT [facility] ([facility] Name Value Range [...] HCT IS 5% LESS SOURCE FOR DATA: [employer] 1800 OPERATION MANUAL( AUTOMATED BLOOD COUNTS AND [...] HCT IS 5% LESS SOURCE FOR DATA: [employer] 1800 OPERATION MANUAL( AUTOMATED BLOOD COUNTS [...] YEARS EXCLUSIVE. BUN/Creatinine Ratio 15.2 CALC [facility] ([facility] NORMAL RANGES Age [...] HCT IS 5% LESS SOURCE FOR DATA: [employer] 1800 OPERATION MANUAL( AUTOMATED BLOOD COUNTS AND [...] HCT IS 5% LESS SOURCE FOR DATA: [employer] 1800 OPERATION MANUAL( AUTOMATED BLOOD COUNTS AND [...] 2-19 YEARS EXCLUSIVE. Na 136 mmol/L 136-145 [facility] NORMAL RANGES Age WBC [...] HCT IS 5% LESS SOURCE FOR DATA: [employer] 1800 OPERATION MANUAL( AUTOMATED BLOOD COUNTS [...] 2-19 YEARS EXCLUSIVE. K 4.3 mmol/L 3.5-5.1 [facility] NORMAL RANGES Age WBC [...] HCT IS 5% LESS SOURCE FOR DATA: [employer] 1800 OPERATION MANUAL( AUTOMATED BLOOD COUNTS AND [...] HCT IS 5% LESS SOURCE FOR DATA: [employer] 1800 OPERATION MANUAL( AUTOMATED BLOOD COUNTS AND [...] 2-19 YEARS EXCLUSIVE. Co2 22.7 mmol/L 22.0-29.0 ITC [facility] NORMAL RANGES Age WBC RBC HGB [...] HCT IS 5% LESS SOURCE FOR DATA: [employer] 1800 OPERATION MANUAL( AUTOMATED BLOOD COUNTS AND [...] HCT IS 5% LESS SOURCE FOR DATA: [employer] 1800 OPERATION MANUAL( AUTOMATED BLOOD COUNTS AND [...] 2-19 YEARS EXCLUSIVE. TP 7.5 g/dL 6.6-8.7 [facility] NORMAL [...] HCT IS 5% LESS SOURCE FOR DATA: [employer] 1800 OPERATION MANUAL( AUTOMATED BLOOD COUNTS AND [...] 2-19 YEARS EXCLUSIVE. CA 9.7 mg/dL 8.6-10.2 [facility] NORMAL [...] HCT IS 5% LESS SOURCE FOR DATA: [employer] 1800 OPERATION MANUAL( AUTOMATED BLOOD COUNTS AND [...] HCT IS 5% LESS SOURCE FOR DATA: [employer] 1800 OPERATION MANUAL( AUTOMATED BLOOD COUNTS AND [...] YEARS EXCLUSIVE. Alp 55.1 U/L 35-129 [facility] ([facility] NORMAL RANGES Age WBC [...] HCT IS 5% LESS SOURCE FOR DATA: [employer] 1800 OPERATION MANUAL( AUTOMATED BLOOD COUNTS AND [...] HCT IS 5% LESS SOURCE FOR DATA: [employer] 1800 OPERATION MANUAL( AUTOMATED BLOOD COUNTS AND [...] HCT IS 5% LESS SOURCE FOR DATA: [employer] 1800 OPERATION MANUAL( AUTOMATED BLOOD COUNTS AND [...] YEARS EXCLUSIVE. Ast (Sgot) 23 U/L 0-40 [facility] NORMAL RANGES Age WBC RBC [...] HCT IS 5% LESS SOURCE FOR DATA: [employer] 1800 OPERATION MANUAL( AUTOMATED BLOOD COUNTS AND [...] 2-19 YEARS EXCLUSIVE. Tbili 0.61 mg/dL 0.0-1.[address] [facility] ([facility] NORMAL [...] HCT IS 5% LESS SOURCE FOR DATA: [employer] 1800 OPERATION MANUAL( AUTOMATED BLOOD COUNTS AND [...] HCT IS 5% LESS SOURCE FOR DATA: [employer] 1800 OPERATION MANUAL( AUTOMATED BLOOD COUNTS AND [...] 2-19 YEARS EXCLUSIVE. Anion Gap 15 mmol/L [facility] ([facility] NORMAL RANGES Age [...] HCT IS 5% LESS SOURCE FOR DATA: [employer] 1800 OPERATION MANUAL( AUTOMATED BLOOD COUNTS AND [...] HCT IS 5% LESS SOURCE FOR DATA: [employer] 1800 OPERATION MANUAL( AUTOMATED BLOOD COUNTS AND [...] INDIVIDUALA AGED 2-19 YEARS EXCLUSIVE. eGFR Non-Afr. Icelandic 89 # [facility] ([facility] [...] HCT IS 5% LESS SOURCE FOR DATA: [employer] 1800 OPERATION MANUAL( AUTOMATED BLOOD COUNTS AND [...] 2-19 YEARS EXCLUSIVE. ID Date Data Source [id number] 07/15/2020 01:00:00 PM EDT [facility] ([facility] Name Value Range Interpretation Code Description Data Aby rce(s) Supporting Document(s) WBC 7.0 10E3/uL 4.1-10.9 [facility] ([facility] NORMAL RANGES Age WBC [...] HCT IS 5% LESS SOURCE FOR DATA: [employer] DYN 1800 OPERATION MANUAL( AUTOMATED BLOOD COUNTS [...] 2-19 YEARS EXCLUSIVE. RBC 4.63 10E6/uL 4.20-6.30 [facility] NORMAL RANGES Age WBC [...] HCT IS 5% LESS SOURCE FOR DATA: [employer] 1800 OPERATION MANUAL( AUTOMATED BLOOD COUNTS AND [...] 2-19 YEARS EXCLUSIVE. HGB 14.1 g/dL 12.0-18.[address] [facility] ([facility] NORMAL RANGES Age [...] HCT IS 5% LESS SOURCE FOR DATA: [employer] 1800 OPERATION MANUAL( AUTOMATED BLOOD COUNTS AND [...] 2-19 YEARS EXCLUSIVE. MCV 89.2 fL 80.0-97.[address] [facility] ([facility] NORMAL [...] HCT IS 5% LESS SOURCE FOR DATA: [employer] 1800 OPERATION MANUAL( AUTOMATED BLOOD COUNTS [...] HCT IS 5% LESS SOURCE FOR DATA: [employer] 1800 OPERATION MANUAL( AUTOMATED BLOOD COUNTS AND [...] HCT IS 5% LESS SOURCE FOR DATA: [employer] 1800 OPERATION MANUAL( AUTOMATED BLOOD COUNTS AND [...] 2-19 YEARS EXCLUSIVE. PLT 204 10E3/uL 140-[address] [facility] ([facility] NORMAL RANGES Age WBC [...] HCT IS 5% LESS SOURCE FOR DATA: [employer] 1800 OPERATION MANUAL( AUTOMATED BLOOD COUNTS AND [...] HCT IS 5% LESS SOURCE FOR DATA: [employer] 1800 OPERATION MANUAL( AUTOMATED BLOOD COUNTS AND [...] 2-19 YEARS EXCLUSIVE. RDW-CV 12.0 % 11.5-14.[address] [facility] ([facility] NORMAL RANGES Age [...] HCT IS 5% LESS SOURCE FOR DATA: [employer] 1800 OPERATION MANUAL( AUTOMATED BLOOD COUNTS AND [...] 2-19 YEARS EXCLUSIVE. Lym% 35.0 % 10.0-58.5 [facility] NORMAL [...] HCT IS 5% LESS SOURCE FOR DATA: [employer] 1800 OPERATION MANUAL( AUTOMATED BLOOD COUNTS AND [...] HCT IS 5% LESS SOURCE FOR DATA: [employer] 1800 OPERATION MANUAL( AUTOMATED BLOOD COUNTS AND [...] 2-19 YEARS EXCLUSIVE. Neut% 54.8 % 37.0-92.[address] [facility] ([facility] NORMAL [...] HCT IS 5% LESS SOURCE FOR DATA: [employer] 1800 OPERATION MANUAL( AUTOMATED BLOOD COUNTS AND [...] 2-19 YEARS EXCLUSIVE. Lym# 2.5 10E3/uL 0.6-4.[address] [facility] ([facility] NORMAL RANGES Age WBC [...] HCT IS 5% LESS SOURCE FOR DATA: [employer] 1800 OPERATION MANUAL( AUTOMATED BLOOD COUNTS AND [...] HCT IS 5% LESS SOURCE FOR DATA: [employer] 1800 OPERATION MANUAL( AUTOMATED BLOOD COUNTS AND [...] 2-19 YEARS EXCLUSIVE. MXD# 0.7 10E3/uL 0.0-1.8 [facility] NORMAL RANGES Age WBC [...] HCT IS 5% LESS SOURCE FOR DATA: [employer] DYN 1800 OPERATION MANUAL( AUTOMATED BLOOD COUNTS [...] 2-19 YEARS EXCLUSIVE. MPV 11.8 fL 9.0-13.[address] [facility] ([facility] NORMAL [...] HCT IS 5% LESS SOURCE FOR DATA: [employer] 1800 OPERATION MANUAL( AUTOMATED BLOOD COUNTS AND [...] 2-19 YEARS EXCLUSIVE. ID Date Data Source [id number] 04/27/2020 12:00:00 AM EST [facility] Name Value Range Interpretation Code Description Data Aby rce(s) Supporting Document(s) SARS-CoV-2 (COVID-19) RNA [Presence] in Respiratory specimen by RYAN with probe detection [facility] This lab was ordered by [facility] and reported by [facility]. Procedure Social History Code Duration Value Status Description Data Source(s ) Alcohol intake 02/24/2021 12:00:00 AM EDT Ex-drinker (finding) comp leted Ex- drinker (finding) [facility] Vital Signs ID Date Data Source [id number] Name Value Range Interpretation Code Description Data Source(s) Heart rate 59 /min 59 /min [facility] Systolic blood pressure 118 mm[Hg] 118 mm[Hg] [facility] Diastolic blood pressure 80 mm[Hg] 80 mm[Hg] [facility] Body height 175.3 cm 175.3 cm [facility] Body weight 94.802 kg 94.802 kg [facility] Body mass index (BMI) [Ratio] 30.86 kg/m2 30.86 kg/m2 [facility] Oxygen saturation in Arterial blood by Pulse oximetry 98 % 98 % [facility] Body weight 213 [lb_av] 213 [lb_av] eCW1 ([facility]) Body weight 96.62 kg 96.62 kg W1 ([facility]) Body height 69 [in_i] 69 [in_i] eCW1 ([facility]) Systolic blood pressure 124 mm[Hg] 124 mm[Hg] e CW1 ([facility]) Diastolic blood pressure 62 mm[Hg] 62 mm[Hg] eCW1 ([facility]) Body mass index (BMI) [Ratio] 31.45 kg/m2 31.45 kg/m2 W1 ([facility]) Heart rate 86 /min 86 /min eCW1 ([facility]) Respiratory rate 18 /min 18 /min eCW1 ([facility]) Body temperature 98.5 [degF] 98.5 [degF] eCW1 ( [facility]) Systolic blood pressure 104 mm[Hg] 104 mm[Hg] [...] Body height 68.50 [in_i] 68.50 [in_i] [facility] ([facility] 5'8.50" Body weight 213.00 [lb_av] 213.00 [lb_av] [facility] T ([facility] Chloride body weight 140 [lb_av] 140 [lb_av] [facility] T ([facility] Body mass index (BMI) [Ratio] 31.9 kg/m2 31.9 k g/m2 [facility] ([facility] Oxygen saturation in Arterial blood by Pulse oximetry 99 % 99 % [facility] ([facility] Body height 68.50 [in_i] 68.50 [in_i] MEDENT ([facility] 5'8.50" Body weight 214.00 [lb_av] 214.00 [lb_av] MEDEN T ([facility] Chloride body weight 140 [lb_av] 140 [lb_av] MEDEN [...] blood pressure 72 mm[Hg] 72 mm[Hg] [facility] ([facility] Systolic blood pressure 122 mm[Hg] 122 mm[Hg] M EDENT ([facility] Systolic blood pressure 120 mm[Hg] 120 mm[Hg] M EDENT ([facility] Diastolic blood pressure 60 mm[Hg] 60 mm[Hg] MED[facility] ([facility] Body temperature 98.0 [degF] 98.0 [degF] [facility] ([facility] Heart rate 80 /min 80 /min [facility] ([facility] Respiratory rate 16 /min 16 /min MED[facility] ( [facility] Body height 68.50 [in_i] 68.50 [in_i] MEDENT ([facility] 5'8.50" Body weight 214.00 [lb_av] 214.00 [lb_av] MEDEN T ([facility] Chloride body weight 140 [lb_av] 140 [lb_av] MEDEN T ([facility] Body mass index (BMI) [Ratio] 32.1 kg/m2 32.1 k g/m2 MEDENT ([facility] Oxygen saturation in Arterial blood by Pulse oximetry 98 % 98 % MEDMARIELLE ([facility] Diastolic blood pressure 66 mm[Hg] 66 mm[Hg] [facility] Chloride body weight 140 [lb_av] 140 [lb_av] MEDEN T ([facility]) Body surface area Derived from formula 2.09 m[address] [facility] ([facility], ) Body weight 94.802 kg [address] [facility] ([facility]) Systolic blood pressure 118 mm[Hg] 118 mm[Hg] [facility] Body height 68.5 [in_i] 68.5 [in_i] [facility] 5'8.50" Body weight 209.00 [lb_av] 209.00 [lb_av] MEDEN T ([facility], ) Body mass index (BMI) [Ratio] 31.3 kg/m2 31.3 k g/m2 [facility] ([facility], ) Respiratory rate 16 /min 16 /min MED[facility] ( [facility] Body weight 215.00 [lb_av] 215.00 [lb_av] MEDEN T ([facility] Body height 68.50 [in_i] 68.50 [in_i] MEDENT ([facility] 5'8.50" Chloride body weight 140 [lb_av] 140 [lb_av] MEDEN T ([facility] Body mass index (BMI) [Ratio] 32.2 kg/m2 32.2 k g/m2 [facility] ([facility] Oxygen saturation in Arterial blood by Pulse oximetry 98 % 98 % [facility] ([facility] Systolic blood pressure 126 mm[Hg] 126 mm[Hg] M EDENT ([facility] Diastolic blood pressure 84 mm[Hg] 84 mm[Hg] MED[facility] ([facility] Body temperature 98.0 [degF] 98.0 [degF] MED[facility] ([facility] Heart rate 70 /min 70 /min [facility] ([facility] Respiratory rate 16 /min 16 /min MED[facility] ( [facility] Heart rate 74 /min 74 /min MED[facility] ([facility] Systolic blood pressure 110 mm[Hg] 110 mm[Hg] M EDENT ([facility] Body temperature 98.2 [degF] 98.2 [degF] [facility] ([facility] Body height 68.50 [in_i] 68.50 [in_i] MED[facility] ([facility] 5'8.50" Body weight 209.00 [lb_av] 209.00 [lb_av] MEDEN T ([facility] Chloride body weight 140 [lb_av] 140 [lb_av] ADONAY Sanchez ([facility] Body mass index (BMI) [Ratio] 31.3 kg/m2 31.3 k g/m2 MANJEET ([facility] Oxygen saturation in Arterial blood by Pulse oximetry 98 % 98 % MANJEET ([facility] Diastolic blood pressure 72 mm[Hg] 72 mm[Hg] MANJEET ([facility] Patient Treatment Plan of Care Planned Activity Planned Date Details Description Data Source (s) Continuous Blood Gluc Sensor (Dexcom G6 Sensor) [facility] 12:00:00 AM EDT [facility] Continuous Blood Gluc Transmit (Dexcom G6 Transmitter) [facility] 12/21/2020 12:00:[address] [facility] Continuous Blood Gluc Set Up Inspector (Dexcom G6 Set Up Inspector) [place] 12/19/2020 12:00:[address] [facility] cetirizine hydrochloride 10 MG Oral Tablet 12/18/2020 12:00:00 AM E DT [facility] Citalopram 10 MG Oral Tablet 12/01/2020 12:00:00 AM EDT [facility] pantoprazole 40 MG Delayed Release Oral Tablet 11/10/2019 12:00:00 AM EDT [facility] Omeprazole 10 MG Delayed Release Oral Capsule [facility]
[2021-03-13 02:50] VITALS: BP 130/78
--- NOTE | 2021-03-13 07:17 | ECGEPIP ---
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
== END 2021-03-13 02:55 | disposition home or self-care (01) ==
LOC: M ED 22:24
DX: R00.2 Palpitations (principal); R00.1 Bradycardia, unspecified; R06.02 Shortness of breath; E11.9 Type 2 diabetes mellitus without complications; K21.9 Gastro-esophageal reflux disease without esophagitis; J45.909 Unspecified asthma, uncomplicated; K57.92 Diverticulitis of intestine, part unspecified, without perforation or abscess without bleeding; R51.9 Headache, unspecified; Z79.899 Other long term (current) drug therapy; J30.81 Allergic rhinitis due to animal (cat) (dog) hair and dander; Z91.89 Other specified personal risk factors, not elsewhere classified; Z88.5 Allergy status to narcotic agent; Z88.8 Allergy status to other drugs, medicaments and biological substances; Z88.1 Allergy status to other antibiotic agents

== ENCOUNTER 2023-02-27 10:23 | Emergency (ER) | payer BC, MEDICAID ==
[~2023-02-27] VITALS: Ht 172.7 cm; Wt 82.8 kg
[~2023-02-27 10:23] MED LIST changes: -DICY20TA11; +DICY20TA20; -DULE100A INH; -FLUC150T; +FLUC150T9; +FLUT50SP17; -FLUTISP; +GLYB-148 PO; -GLYB2.5T13 PO; +MOME13HF8 INH; +MONT-5 PO; -MONT10TA10 PO; +MONT10TA97 PO; +OMEP-173 PO; -OMEP-218 PO; -SING10TA32 PO
[2023-02-27] MEDS ORDERED: MOME13HF7 (10:33)
[2023-02-27] MEDS ORDERED: PANT40TA29 (10:33)
[2023-02-27 12:53] LABS: BASO # 0.1 10^3/uL (0.0-0.2); BASO % 0.8 % (0.0-1.0); EOS # 0.3 10^3/uL (0.0-0.5); EOS % 3.6 % (0.0-3.0); LYMPH # 2.1 10^3/uL (1.5-5.0); LYMPH % 24.5 % (24.0-44.0); MEAN CORPUSCULAR HEMOGLOBIN 31.5 pg (27.0-33.0); MEAN CORPUSCULAR HGB CONC 34.1 g/dl (32.0-36.5); MEAN CORPUSCULAR VOLUME 92.4 fl (80.0-96.0); MONO # 0.6 10^3/uL (0.0-0.8); MONO % 6.5 % (2.0-8.0); NEUTROPHILS # 5.4 10^3/uL (1.5-8.5); NEUTROPHILS % 64.2 % (36.0-66.0); PLATELET COUNT, AUTOMATED 148 10^3/uL (150-450); RED BLOOD COUNT 4.76 10^6/uL (4.00-5.40); WHITE BLOOD COUNT 8.4 10^3/uL (4.0-10.0)
[2023-02-27] MEDS ORDERED: KETOROLAC 60MG 2ML VIAL IM ONE (13:15)
[2023-02-27] MEDS ORDERED: KETO10TAB PO (14:24)
[2023-02-27 14:46] VITALS: BP 121/83; TEMP 98.5; O2SAT 99
== END 2023-02-27 14:48 | disposition home or self-care (01) ==
LOC: M ED 10:23
DX: N83.202 Unspecified ovarian cyst, left side (principal); D25.9 Leiomyoma of uterus, unspecified; Z79.52 Long term (current) use of systemic steroids; Z79.810 Long term (current) use of selective estrogen receptor modulators (SERMs); Z79.899 Other long term (current) drug therapy; Z88.1 Allergy status to other antibiotic agents; Z88.5 Allergy status to narcotic agent; Z91.048 Other nonmedicinal substance allergy status
CPT/HCPCS: 76856; 80047; 81001; 85025; 87086; 96372; 99283; J1885

== ENCOUNTER → 2023-03-08 | Outpatient (REF) | payer BC ==
[~2023-03-08] MED LIST changes: +MOME13HF7; +PANT40TA29
== END ==
LOC: M SFHCWAGY 10:16
PROVIDERS: ATTEND Nurse Practitioner Family
DX: N73.9 Female pelvic inflammatory disease, unspecified (principal)

== ENCOUNTER 2023-08-30 10:23 | Day surgery (SDC) | payer BC ==
[~2023-08-30] VITALS: Ht 175.3 cm; Wt 84.4 kg
[~2023-08-30 10:23] MED LIST changes: +CETI-24 PO; +CVS1CAP2 PO; +EPIP0.3I2 IM; -FLUT50SP17; +FLUTISP; +HAIRTAB10 PO; +LR 1,000 ML IV SCH; +MOME13HF7 INH; +PROA1AER2 INH; +THERTAB52 PO; +VITA100093 PO; +mirena
[2023-08-30] MEDS ORDERED: propofoL 200 MG/20 ML VIAL As Ordered ONE (10:27)
[2023-08-30] MEDS ORDERED: LIDOCAINE 2% 100MG/5ML SDV (FOR ANES.) As Ordered ONE (10:27)
[2023-08-30] MEDS ORDERED: ROCURONIUM BROMIDE 50MG/5ML VIAL As Ordered ONE (10:27)
[2023-08-30] MEDS ORDERED: MIDAZOLAM INJ 2MG/2ML VIAL As Ordered ONE (10:28)
[2023-08-30] MEDS ORDERED: fentaNYL 250 MCG/5 ML INJECTION As Ordered ONE (10:28)
[2023-08-30] MEDS ORDERED: LR 1,000 ML IV SCH ×2 (11:10→14:25)
[2023-08-30 11:12] LABS: HEMOGLOBIN 14.5 g/dl (12.0-15.5); MEAN CORPUSCULAR HEMOGLOBIN 30.9 pg (27.0-33.0); MEAN CORPUSCULAR HGB CONC 33.7 g/dl (32.0-36.5); MEAN CORPUSCULAR VOLUME 91.7 fl (80.0-96.0); PLATELET COUNT, AUTOMATED 199 10^3/uL (150-450); RED BLOOD COUNT 4.69 10^6/uL (4.00-5.40)
[2023-08-30] MEDS: NS 1,000 ML IV SCH (11:45)
[2023-08-30] MEDS: ceFAZolin SOD 2 GM in IV 1 EA IV ONE (11:54)
[2023-08-30] MEDS ORDERED: METOCLOPRAMIDE INJ 10MG/2ML VIAL As Ordered ONE (12:23)
[2023-08-30] MEDS ORDERED: ONDANSETRON 4MG 2ML VIAL As Ordered ONE (12:23)
[2023-08-30] MEDS ORDERED: KETAMINE HCL 200MG/20ML VIAL As Ordered ONE (12:23)
[2023-08-30] MEDS ORDERED: KETOROLAC 60MG 2ML VIAL As Ordered ONE (12:23)
[2023-08-30] MEDS ORDERED: ACETAMINOPHEN 1000MG 100ML IV BAG As Ordered ONE (12:34)
[2023-08-30] MEDS ORDERED: SUGAMMADEX SODIUM 500 MG/5 ML VIAL (BRIDION) As Ordered ONE (12:44)
[2023-08-30] MEDS ORDERED: METOCLOPRAMIDE INJ 10MG/2ML VIAL IV PRN (13:15)
[2023-08-30] MEDS ORDERED: ONDANSETRON 4MG 2ML VIAL IV PRN (13:15)
[2023-08-30] MEDS ORDERED: OXYC1TAB23 PO (13:30)
[2023-08-30] MEDS ORDERED: IBUP-1022 PO (13:30)
[2023-08-30] MEDS: fentaNYL 100 MCG/2 ML INJECTION IV PRN (13:51)
[2023-08-30] MEDS: oxyCODONE 5MG TAB PO ONE (13:56)
[2023-08-30] MEDS: HYDROMORPHONE HCL 0.5 MG/ 0.5 ML SYRINGE IV PRN (14:18)
[2023-08-30] MEDS ORDERED: PERCOCET 5MG/325MG TAB PO PRN (14:25)
[2023-08-30 16:15] VITALS: BP 105/61; TEMP 97.5; O2SAT 97
== END 2023-08-30 16:46 | disposition home or self-care (01) ==
LOC: M SDC 10:23
PROVIDERS: ATTEND Specialist
DX: D25.9 Leiomyoma of uterus, unspecified (principal); N83.292 Other ovarian cyst, left side; R73.03 Prediabetes; K21.9 Gastro-esophageal reflux disease without esophagitis; K57.92 Diverticulitis of intestine, part unspecified, without perforation or abscess without bleeding; J45.909 Unspecified asthma, uncomplicated; R00.1 Bradycardia, unspecified; Z79.51 Long term (current) use of inhaled steroids; Z79.899 Other long term (current) drug therapy; J30.2 Other seasonal allergic rhinitis; Z88.5 Allergy status to narcotic agent; Z88.1 Allergy status to other antibiotic agents; Z88.8 Allergy status to other drugs, medicaments and biological substances
CPT/HCPCS: 36415; 58571; 81025; 85027; 86850; 86900; 86901; 88307; J0131; J0665; J0690; J1100; J1170; J1885; J2250; J2405; J2765; J3010; S2900

== ENCOUNTER 2024-05-20 10:49 | Emergency (ER) | payer BC ==
[~2024-05-20] VITALS: Ht 175.3 cm; Wt 82.7 kg
[~2024-05-20 10:49] MED LIST changes: +IBUP-1022 PO; -LR 1,000 ML IV SCH; +OXYC1TAB23 PO
[2024-05-20 13:28] LABS: BASO # 0.1 10^3/uL (0.0-0.2); BASO % 0.9 % (0.0-1.0); EOS # 0.3 10^3/uL (0.0-0.5); EOS % 5.4 % (0.0-3.0); HEMATOCRIT 43.1 % (36.0-47.0); HEMOGLOBIN 14.4 g/dl (12.0-15.5); LYMPH # 1.6 10^3/uL (1.5-5.0); LYMPH % 28.1 % (24.0-44.0); MEAN CORPUSCULAR HEMOGLOBIN 30.7 pg (27.0-33.0); MEAN CORPUSCULAR HGB CONC 33.4 g/dl (32.0-36.5); MEAN CORPUSCULAR VOLUME 91.9 fl (80.0-96.0); MONO # 0.5 10^3/uL (0.0-0.8); MONO % 8.6 % (2.0-8.0); NEUTROPHILS # 3.2 10^3/uL (1.5-8.5); NEUTROPHILS % 56.8 % (36.0-66.0); PLATELET COUNT, AUTOMATED 205 10^3/uL (150-450); RED BLOOD COUNT 4.69 10^6/uL (4.00-5.40); WHITE BLOOD COUNT 5.6 10^3/uL (4.0-10.0)
[2024-05-20] MEDS: KETOROLAC 30 MG/ML 1ML VIAL IV ONE (13:34)
[2024-05-20] MEDS ORDERED: ISOVUE-370 76% 100ML VIAL As Ordered ONE (13:49)
[2024-05-20 13:56] LABS: KETONE, URINE AUTO RFX NEGATIVE (NEGATIVE); MUCUS, URINE RFX SMALL (NEGATIVE); NITRITE, URINE AUTO RFX NEGATIVE (NEGATIVE); RBC, URINE AUTO RFX 1 /HPF (0-3); SQUAM EPITHELIAL CELL UR AURFX 11 /HPF (0-6); WBC, URINE AUTO RFX 6 /HPF (0-3)
[2024-05-20 14:10] LABS: LEUKOCYTE ESTERASE UR AUTO RFX TRACE (NEGATIVE)
[2024-05-20] MEDS ORDERED: ONDA-282 PO (14:30)
[2024-05-20] MEDS ORDERED: METR-265 PO (14:30)
[2024-05-20] MEDS ORDERED: CIPR-249 PO (14:30)
[2024-05-20 15:01] VITALS: BP 111/68; TEMP 97; O2SAT 99
== END 2024-05-20 15:06 | disposition home or self-care (01) ==
LOC: M ED 10:49
DX: K57.32 Diverticulitis of large intestine without perforation or abscess without bleeding (principal); Z90.89 Acquired absence of other organs; Z79.52 Long term (current) use of systemic steroids; Z79.83 Long term (current) use of bisphosphonates; Z79.899 Other long term (current) drug therapy; Z79.1 Long term (current) use of non-steroidal anti-inflammatories (NSAID); Z88.1 Allergy status to other antibiotic agents; Z88.5 Allergy status to narcotic agent; Z88.8 Allergy status to other drugs, medicaments and biological substances; Z91.048 Other nonmedicinal substance allergy status
CPT/HCPCS: 74177; 80047; 81001; 85025; 87086; 96374; 99284; J1885; Q9967

== ENCOUNTER → 2024-08-12 | Outpatient (CLI) | payer BC ==
[~2024-08-12] MED LIST changes: +METR-265 PO; +ONDA-282 PO
== END ==
LOC: M WUC 12:04
PROVIDERS: ATTEND Physician Assistant
DX: R00.2 Palpitations (principal)

== ENCOUNTER 2024-12-25 21:25 | Emergency (ER) | payer BC ==
[~2024-12-25] VITALS: Ht 172.7 cm; Wt 98.2 kg
[~2024-12-25 21:25] MED LIST changes: -IBUP-1022; -IBUP-1022 PO; +IBUP600T42; +IBUP600T42 PO
[2024-12-25 21:28] VITALS: BP 132/84; TEMP 96.7; O2SAT 99
== END 2024-12-26 00:38 | disposition left against medical advice (07) ==
LOC: M ED 21:25
DX: Z53.21 Procedure and treatment not carried out due to patient leaving prior to being seen by health care provider (principal)